=== PATIENT | female | born 1935 ===

== ENCOUNTER 2019-05-15 09:42 | Inpatient (IN) | payer MEDICARE ==
[2019-05-16 08:03] LABS: Basophils % (Auto) 0.6 % (0.0-1.8); Eosinophils # (Auto) 0.2 K/mm3 (0.0-0.4); Eosinophils % (Auto) 2.2 % (0.0-4.3); Hematocrit 31.2 % (30.3-42.9); Lymphocytes # (Auto) 1.8 K/mm3 (1.2-5.4); Lymphocytes % (Auto) 26.6 % (13.4-35.0); Mean Corpuscular HGB Conc 32 % (30-34); Mean Corpuscular Volume 94 fl (79-97); Monocytes # (Auto) 0.7 K/mm3 (0.0-0.8); Monocytes % (Auto) 10.8 % (0.0-7.3); Platelet Count 187 K/mm3 (140-440); Red Blood Count 3.33 M/mm3 (3.65-5.03); Red Cell Distribution Width 14.2 % (13.2-15.2)
[2019-05-16 08:19] LABS: Albumin 2.6 g/dL (3.9-5); Calcium 8.2 mg/dL (8.4-10.2); Chol/HDL Ratio 4.26 %
--- NOTE | 2019-05-16 08:19 | History and Physical Report ---
GP History & Physical - History of Present Illness Date of admission: 05/15/19 Date of Examination: 05/16/19 Reason for Admission: Danger to self, Danger to others, Unable to care for self Chief Complaint: Agitation History of Present Illness: The patient is an 83yo female with history of advanced dementia. Per records, patient's family reported that pt used to be in an assisted living facility then moved to a [facility]. The [facility] to [facility] due to aggressive behavior and threatening to kill residents. Patient is not able to engage in meaningful conversation this morning. Legal Status: DPOA for Mental Health Patient Problems: Current Active Problems Major neurocognitive disorder due to Alzheimer's disease, with behavioral disturbance (Acute) Reaction to Hospitalization: Accepting Substance History - Substance History Drug Use: none Hx Tobacco Use: No Alcohol Use: No Past psychiatric history - Past Medical History Past Medical History: diabetes - Social History Social history: other (Patient lives in a Long Term) Review of Systems ROS unobtainable: due to mental status Results - Results Labs/Vitals: Laboratory Last Values POC Glucose 239 (70-105) H 05/15/19 20:25 8.5 % (4-6) H 05/16/19 07:10 Last Vital Signs Temp 97.3 F L 05/15/19 22:00 Pulse 81 05/15/19 22:00 Resp 18 05/15/19 22:00 BP 125/59 05/15/19 22:00 Pulse Ox 97 05/15/19 22:00 Physical Examination - Constitutional Vitals: Vital Signs Temp Pulse Resp BP Pulse Ox 97.3 F L 81 18 125/59 97 05/15/19 22:00 05/15/19 22:00 05/15/19 22:00 05/15/19 22:00 05/15/19 22:00 Temperature -Last 24 Hours Temperature 97.3 F Temperature 97.3 F Temperature 97.7 F General appearance: Present: no acute distress - EENT Eyes: Present: PERRL, EOM intact ENT: hearing intact, clear oral mucosa - Neck Neck: Present: supple - Respiratory Respiratory effort: normal Mental Status Exam - Vital signs Last Vital Signs Temp 97.3 F L 05/15/19 22:00 Pulse 81 05/15/19 22:00 Resp 18 05/15/19 22:00 BP 125/59 05/15/19 22:00 Pulse Ox 97 05/15/19 22:00 - Exam Affect: flat Mood: congruent with affect Thought Process: Disorganized Perceptions: none Speech: paucity Motor activity: lethargic Level of consciousness: sedated Memory: Recent Impaired, Remote Impaired Interaction: cooperative Mini mental status exam(if necessary): 0-17 Assessment and Plan - Psychiatric problem (1) Major neurocognitive disorder due to Alzheimer's disease, with behavioral disturbance Current Visit: Yes Status: Acute plan to address problem: Patient will be admitted for inpatient psychiatric evaluation, medication adjustment and close monitoring The patient's behavior, mood, sleep and appetite will be closely monitored. Patient will be enrolled in individual and group therapeutic sessions and encouraged to attend. Patient will be provided with a safe and structured environment. Patient's physical health needs will be addressed by the Hospitalist. Social Assessment will be completed and the Caul Puller will work with p atient and family to ensure a suitable and safe disposition Medication adjustment will be made as clinically indicated The patient agreed on the treatment plan, understood the risk, benefit, alterna tive treatment, potential consequence of no treatment, and gave informed consent. Physician Certification - Certification Statement Physician Certification Statement: This is an acknowledgement statement that JAMES BOWDEN is a 83 year old F who requires inpatient psychiatric admission for treatment which could reasonably be expected to improve the patient's condition for behavioral disturbance Estimated period of time patient will need to remain in the hospital: 7 days Plan for post-hospital care: Out-patient care
[2019-05-16] MEDS ORDERED: D50W (25GM) Syringe IV PRN (20:49)
[2019-05-16] MEDS ORDERED: LANTUS SUB-Q SCH (22:00)
[2019-05-16] MEDS ORDERED: ATIVAN PO SCH (22:00)
[2019-05-16] MEDS: HumaLOG SUB-Q SCH (22:15)
--- NOTE | 2019-05-17 08:07 | Consultation ---
History of Present Illness - Reason for Consult Consult date: 05/16/19 Medical management Requesting physician: JARROD MICHELE - History of Present Illness The patient is an 83yo female with history of advanced dementia. Per records, patient's family reported that pt used to be in an assisted living facility then moved to a [facility]. The [facility] pt [facility] due to aggressive behavior and threatening to kill residents. Patient is not able to en sakina in meaningful conversation this morning. Past History Past Medical History: diabetes, other (Resp failure on O2) Past Surgical History: Other (Not available) Social history: smoking (in the past), full code, other (Patient lives in a Group Home) Family history: hypertension Medications and Allergies Allergies Allergy/AdvReac Type Severity Reaction Status Date / Time codeine Allergy Mild Unknown Verified 05/15/19 22:13 enoxaparin [From Lovenox] Allergy Mild Unknown Verified 05/15/19 22:13 Home Medications Medication Instructions Recorded Confirmed Last Taken Type LORazepam 1 mg PO Q6H PRN 05/15/19 05/15/19 05/14/19 22:00 History 1 mg LORazepam [Ativan] 1 mg PO QHS 05/15/19 05/15/19 05/14/19 22:00 History 1 mg Insulin Glargine [Lantus] 18 unit SUB-Q BID 05/16/19 05/16/19 Unknown History Active Meds: Active Medications Dextrose (D50w (25gm) Syringe) 50 ml IV PRN PRN PRN Reason: Hypoglycemia Insulin Glargine (Lantus) 10 units SUB-Q QHS [facility] Last Admin: 05/16/19 22:16 Dose: 10 units Documented by: Insulin Human Lispro (Humalog) 0 unit SUB-Q [facility]; Protocol Last Admin: 05/16/19 22:15 Dose: 4 unit Documented by: Lorazepam (Ativan) 1 mg PO QHS [facility] Last Admin: 05/16/19 21:17 Dose: 1 mg Documented by: Quetiapine Fumarate (Seroquel) 25 mg PO QHS [facility] Last Admin: 05/16/19 21:17 Dose: 25 mg Documented by: Review of Systems All systems: negative Exam - Constitutional Vitals: Temp Pulse Resp BP Pulse Ox 97.7 F 134 H 18 113/65 98 05/16/19 22:00 05/16/19 22:00 05/16/19 22:00 05/16/19 22:00 05/16/19 22:00 General appearance: Present: no acute distress, well-nourished - EENT Eyes: Present: PERRL ENT: hearing intact, clear oral mucosa - Neck Neck: Present: supple, normal ROM - Respiratory Respiratory effort: normal Respiratory: bilateral: CTA - Cardiovascular Heart rate: 78 Rhythm: regular Heart Sounds: Present: S1 & S2. Absent: rub, click - Extremities Extremities: no ischemia, pulses intact, pulses symmetrical, No edema Peripheral Pulses: within normal limits - Abdominal General gastrointestinal: Present: soft, non-tender, non-distended, normal bowel sounds Female genitourinary: Present: normal - Integumentary Integumentary: Present: clear, warm, dry - Musculoskeletal Musculoskeletal: gait normal, strength equal bilaterally - Psychiatric Psychiatric: appropriate mood/affect, agitated - Neurologic Neurologic: CNII-XII intact, moves all extremities - Allied Health Allied health notes reviewed: nursing, case management Results - Labs CBC & Chem 7: 05/16/19 07:10 05/16/19 07:10 Labs: Abnormal lab results 05/16/19 05/16/19 05/16/19 Range/Units 07:10 08:53 12:16 Carbon Dioxide 32 H (22-30) mmol/L BUN 21 H (7-17) mg/dL Glucose 131 H (65-100) mg/dL POC Glucose 138 H 162 H (70-105) Calcium 8.2 L (8.4-10.2) mg/dL Albumin 2.6 L (3.9-5) g/dL HDL Cholesterol 26 L (40-59) mg/dL 05/16/19 05/16/19 05/17/19 Range/Units 17:04 20:08 06:24 Carbon Dioxide (22-30) mmol/L BUN (7-17) mg/dL Glucose (65-100) mg/dL POC Glucose 243 H 264 H 250 H (70-105) Calcium (8.4-10.2) mg/dL Albumin (3.9-5) g/dL HDL Cholesterol (40-59) mg/dL BMP 05/16/19 07:10 Sodium 140 Potassium 4.4 Chloride 100.6 Carbon Dioxide 32 H BUN 21 H Creatinine 1.2 Glucose 131 H Calcium 8.2 L Liver Function 05/16/19 Range/Units 07:10 Total Bilirubin 0.30 (0.1-1.2) mg/dL AST 17 (5-40) units/L ALT 10 (7-56) units/L Alkaline Phosphatase 116 (35-129) units/L Albumin 2.6 L (3.9-5) g/dL Assessment and Plan - Patient Problems (1) IDDM (insulin dependent diabetes mellitus) Current Visit: Yes Status: Chronic Plan to address problem: A1c 8.5 Adjusted her insulin upward Accucheks bid and coverage (2) Respiratory failure with hypoxia Current Visit: Yes Status: Chronic Qualifiers: Chronicity: chronic Qualified Code(s): J96.11 - Chronic respiratory failure with hypoxia Plan to address problem: Cont O2 Patient has portable O2 equipment (3) Malnutrition of moderate degree Current Visit: Yes Status: Chronic Plan to address problem: Albumin 2.6 dietitian consult (4) Hypocalcemia Current Visit: Yes Status: Chronic Plan to address problem: Caltrate added (5) Anemia Current Visit: Yes Status: Chronic Qualifiers: Anemia type: unspecified type Qualified Code(s): D64.9 - Anemia, unspecified Plan to address problem: Mild No w//u Nutritional (6) DVT prophylaxis Current Visit: Yes Status: Acute Plan to address problem: On Lovenox and GI prophylaxis
[2019-05-17] MEDS: HumaLOG SUB-Q SCH ×4 (08:35→22:00)
[2019-05-17] MEDS ORDERED: ENOXAPARIN SUB-Q SCH (12:00)
[2019-05-17] MEDS: CALTRATE PLUS PO SCH ×2 (12:40→22:00)
[2019-05-17] MEDS: PEPCID PO SCH (12:40)
[2019-05-17] MEDS: LANTUS SUB-Q SCH ×3 (15:03→22:00)
--- NOTE | 2019-05-17 17:18 | Progress Note ---
Subjective Date of service: 05/17/19 Principal diagnosis: Dementia with behavioral disturbance Subjective Comment: The patient has been sleeping all day. She is sleeping in the day room and unable to engage in interview. She is arousable but falls back to sleep quickly. Objective - Criteria for Continued Treatment Criteria for Continued Treatment: Improving Level of Functioning, Stablizing Level of Functioning, Improving Emotional/Socia - Mental Status Mental Status: Lethargic - Objective Observation Participation Level: None Reason(s) For Not Participating: Unable Assessment and Plan - Patient Problems (1) Major neurocognitive disorder due to Alzheimer's disease, with behavioral disturbance Current Visit: Yes Status: Acute Plan to address problem: Patient will be admitted for inpatient psychiatric evaluation, medication adjustment and close monitoring The patient's behavior, mood, sleep and appetite will be closely monitored. Patient will be enrolled in individual and group therapeutic sessions and encouraged to attend. Patient will be provided with a safe and structured environment. Patient's physical health needs will be addressed by the Hospitalist. Social Assessment will be completed and the Dietitian Teaching will work with patient and family to ensure a suitable and safe disposition Medication adjustment will be made as clinically indicated Will discontinue Lorazepam and Seroquel scheduled for tonight. Medications & Allergies - Medications Allergies/Adverse Reactions: Allergies codeine Allergy (Mild, Verified 05/15/19 22:13) Unknown enoxaparin [From Lovenox] Allergy (Mild, Verified 05/15/19 22:13) Unknown Home Medications: Home Medications Medication Instructions Recorded Confirmed Last Taken Type LORazepam 1 mg PO Q6H PRN 05/15/19 05/15/19 05/14/19 22:00 History 1 mg LORazepam [Ativan] 1 mg PO QHS 05/15/19 05/15/19 05/14/19 22:00 History 1 mg Insulin Glargine [Lantus] 18 unit SUB-Q BID 05/16/19 05/16/19 Unknown History Active Medications: Generic Name Dose Route Start Last Admin Trade Name Freq PRN Reason Stop Dose Admin Dextrose 50 ml 05/16/19 20:49 D50w (25gm) Syringe IV PRN PRN Hypoglycemia Famotidine 20 mg 05/17/19 10:00 05/17/19 12:40 Pepcid PO 20 mg QDAY SINDY Administration Insulin Glargine 18 units 05/17/19 11:30 05/17/19 15:03 Lantus SUB-Q Not Given BIDDIAB ISNDY Insulin Human Lispro 0 unit 05/16/19 22:00 05/17/19 12:39 Humalog SUB-Q 2 unit ACHS SINDY Administration Protocol Lorazepam 1 mg 05/17/19 22:00 Ativan PO QHS SINDY Multivitamins/Minerals 1 each 05/17/19 10:00 05/17/19 12:40 Caltrate Plus PO 1 each BID SINDY Administration Quetiapine Fumarate 25 mg 05/16/19 22:00 05/16/19 21:17 Seroquel PO 25 mg QHS SINDY Administration
[2019-05-17 18:48] LABS: Basophils % (Auto) 0.3 % (0.0-1.8); Eosinophils # (Auto) 0.1 K/mm3 (0.0-0.4); Eosinophils % (Auto) 0.7 % (0.0-4.3); Hematocrit 32.8 % (30.3-42.9); Hemoglobin 10.6 gm/dl (10.1-14.3); Lymphocytes % (Auto) 21.8 % (13.4-35.0); Mean Corpuscular HGB Conc 32 % (30-34); Mean Corpuscular Volume 93 fl (79-97); Monocytes # (Auto) 0.8 K/mm3 (0.0-0.8); Monocytes % (Auto) 8.9 % (0.0-7.3); Platelet Count 198 K/mm3 (140-440); Red Blood Count 3.54 M/mm3 (3.65-5.03); Red Cell Distribution Width 14.2 % (13.2-15.2)
[2019-05-17 18:58] LABS: Albumin 2.7 g/dL (3.9-5); Calcium 8.2 mg/dL (8.4-10.2)
--- NOTE | 2019-05-17 20:48 | Event Note ---
Date: 05/17/19 Was called to evaluate the patient for sleeping during the daytime Patient was evaluated ABGs near normal Excessive sedation secondary to lorazepam Will hold the lorazepam
[2019-05-17] MEDS ORDERED: ATIVAN PO SCH (22:00)
[2019-05-18] MEDS: HumaLOG SUB-Q SCH ×4 (09:55→22:37)
[2019-05-18] MEDS: PEPCID PO SCH (09:57)
[2019-05-18] MEDS: CALTRATE PLUS PO SCH ×2 (09:57→21:48)
--- NOTE | 2019-05-18 15:02 | Progress Note ---
Subjective Date of service: 05/18/19 Principal diagnosis: Dementia with behavioral disturbance Subjective Comment: The patient is excessively sedated. All psychotropic medications were discontinued yesterday. She is being followed by the Hospitalist team Unable to complete MSE due to patient's factor Objective - Criteria for Continued Treatment Criteria for Continued Treatment: Improving Level of Functioning, Stablizing Level of Functioning, Improving Emotional/Socia - Objective Observation Participation Level: None Reason(s) For Not Participating: Unable Assessment and Plan - Patient Problems (1) Major neurocognitive disorder due to Alzheimer's disease, with behavioral disturbance Current Visit: Yes Status: Acute Plan to address problem: Patient will be admitted for inpatient psychiatric evaluation, medication adjust ment and close monitoring The patient's behavior, mood, sleep and appetite will be closely monitored. Patient will be enrolled in individual and group therapeutic sessions and encouraged to attend. Patient will be provided with a safe and structured environment. Patient's physical health needs will be addressed by the Hospitalist. Social Assessment will be completed and the Leak Detection Engineer will work with patient and family to ensure a suitable and safe disposition Medication adjustment will be made as clinically indicated Medications & Allergies - Medications Allergies/Adverse Reactions: Allergies codeine Allergy (Mild, Verified 05/15/19 22:13) Unknown enoxaparin [From Lovenox] Allergy (Mild, Verified 05/15/19 22:13) Unknown Home Medications: Home Medications Medication Instructions Recorded Confirmed Last Taken Type LORazepam 1 mg PO Q6H PRN 05/15/19 05/15/19 05/14/19 22:00 History 1 mg LORazepam [Ativan] 1 mg PO QHS 05/15/19 05/15/19 05/14/19 22:00 History 1 mg Insulin Glargine [Lantus] 18 unit SUB-Q BID 05/16/19 05/16/19 Unknown History Active Medications: Generic Name Dose Route Start Last Admin Trade Name Freq PRN Reason Stop Dose Admin Dextrose 50 ml 05/16/19 20:49 D50w (25gm) Syringe IV PRN PRN Hypoglycemia Famotidine 20 mg 05/17/19 10:00 05/18/19 09:57 Pepcid PO 20 mg QDAY SINDY Administration Insulin Glargine 18 units 05/17/19 22:00 05/17/19 22:00 Lantus SUB-Q 18 units QHS SINDY Administration Insulin Human Lispro 0 unit 05/16/19 22:00 05/18/19 09:55 Humalog SUB-Q Not Given ACHS SINDY Protocol Multivitamins/Minerals 1 each 05/17/19 10:00 05/18/19 09:57 Caltrate Plus PO 1 each BID SINDY Administration
[2019-05-18] MEDS: LANTUS SUB-Q SCH (22:35)
[2019-05-19] MEDS: HumaLOG SUB-Q SCH ×3 (08:23→17:18)
[2019-05-19] MEDS: CALTRATE PLUS PO SCH ×2 (10:53→22:48)
[2019-05-19] MEDS: PEPCID PO SCH (10:54)
--- NOTE | 2019-05-19 11:24 | Progress Note ---
Subjective Date of service: 05/19/19 Principal diagnosis: Dementia with behavioral disturbance Subjective Comment: The patient is excessively sedated. All psychotropic medications were discontinued yesterday. She is being followed by the Hospitalist team Unable to complete MSE due to patient's factor Objective - Criteria for Continued Treatment Criteria for Continued Treatment: Improving Level of Functioning, Stablizing Level of Functioning, Improving Emotional/Socia - Objective Observation Participation Level: None Reason(s) For Not Participating: Unable Assessment and Plan - Patient Problems (1) Major neurocognitive disorder due to Alzheimer's disease, with behavioral disturbance Current Visit: Yes Status: Acute Plan to address problem: Patient will be admitted for inpatient psychiatric evaluation, medication adjust ment and close monitoring The patient's behavior, mood, sleep and appetite will be closely monitored. Patient will be enrolled in individual and group therapeutic sessions and encouraged to attend. Patient will be provided with a safe and structured environment. Patient's physical health needs will be addressed by the Hospitalist. Social Assessment will be completed and the Space Officer will work with patient and family to ensure a suitable and safe disposition Medication adjustment will be made as clinically indicated
[2019-05-19] MEDS: LANTUS SUB-Q SCH (23:42)
[2019-05-20] MEDS: HumaLOG SUB-Q SCH ×5 (00:08→21:29)
[2019-05-20] MEDS: CALTRATE PLUS PO SCH ×2 (09:58→21:29)
[2019-05-20] MEDS: PEPCID PO SCH (09:58)
[2019-05-20] MEDS: LANTUS SUB-Q SCH (21:30)
[2019-05-21] MEDS: HumaLOG SUB-Q SCH ×4 (08:10→21:21)
[2019-05-21] MEDS: CALTRATE PLUS PO SCH ×2 (09:34→21:20)
[2019-05-21] MEDS: PEPCID PO SCH (09:35)
--- NOTE | 2019-05-21 17:29 | Progress Note ---
Subjective Date of service: 05/20/19 Principal diagnosis: Dementia with behavioral disturbance Subjective Comment: The patient is alert but confused this morning. No behavioral concerns. Objective - Criteria for Continued Treatment Criteria for Continued Treatment: Improving Level of Functioning, Stablizing Level of Functioning, Improving Emotional/Socia - Objective Observation Participation Level: Minimal Assessment and Plan - Patient Problems (1) Major neurocognitive disorder due to Alzheimer's disease, with behavioral disturbance Current Visit: Yes Status: Acute Plan to address problem: Patient will be admitted for inpatient psychiatric evaluation, medication adjustment and close monitoring The patient's behavior, mood, sleep and appetite will be closely monitored. Patient will be enrolled in individual and group therapeutic sessions and e ncouraged to attend. Patient will be provided with a safe and structured environment. Patient's physical health needs will be addressed by the Hospitalist. Social Assessment will be completed and the Extrusion Engineer will work with patient and family to ensure a suitable and safe disposition Medication adjustment will be made as clinically indicated Medications & Allergies - Medications Allergies/Adverse Reactions: Allergies codeine Allergy (Mild, Verified 05/15/19 22:13) Unknown enoxaparin [From Lovenox] Allergy (Mild, Verified 05/15/19 22:13) Unknown Home Medications: Home Medications Medication Instructions Recorded Confirmed Last Taken Type LORazepam 1 mg PO Q6H PRN 05/15/19 05/15/19 05/14/19 22:00 History 1 mg LORazepam [Ativan] 1 mg PO QHS 05/15/19 05/15/19 05/14/19 22:00 History 1 mg Insulin Glargine [Lantus] 18 unit SUB-Q BID 05/16/19 05/16/19 Unknown History Active Medications: Generic Name Dose Route Start Last Admin Trade Name Freq PRN Reason Stop Dose Admin Dextrose 50 ml 05/16/19 20:49 D50w (25gm) Syringe IV PRN PRN Hypoglycemia Famotidine 20 mg 05/17/19 10:00 05/21/19 09:35 Pepcid PO 20 mg QDAY SINDY Administration Insulin Glargine 18 units 05/17/19 22:00 05/20/19 21:30 Lantus SUB-Q 18 units QHS SINDY Administration Insulin Human Lispro 0 unit 05/16/19 22:00 05/21/19 17:08 Humalog SUB-Q 3 unit ACHS SINDY Administration Protocol Multivitamins/Minerals 1 each 05/17/19 10:00 05/21/19 09:34 Caltrate Plus PO 1 each BID SINDY Administration Mental Status Exam - Vital signs Last Vital Signs Temp 98.5 F 05/21/19 10:00 Pulse 79 05/21/19 10:00 Resp 20 05/21/19 10:00 BP 136/55 05/21/19 10:00 Pulse Ox 95 05/21/19 10:04 - Exam Orientation: place Affect: normal Mood: calm Thought Process: Disorganized, Disoriented Perceptions: none Speech: paucity Motor activity: lethargic Level of consciousness: confused Memory: Recent Impaired, Remote Impaired Interaction: cooperative
--- NOTE | 2019-05-21 17:30 | Progress Note ---
Subjective Date of service: 05/21/19 Principal diagnosis: Dementia with behavioral disturbance Subjective Comment: The patient is alert but confused this morning. No behavioral concerns. Orientation: place Affect: normal Mood: calm Thought Process: Disorganized, Disoriented Perceptions: none Speech: paucity Motor activity: lethargic Level of consciousness: confused Memory: Recent Impaired, Remote Impaired Interaction: cooperative Objective - Criteria for Continued Treatment Criteria for Continued Treatment: Improving Level of Functioning, Stablizing Level of Functioning, Improving Emotional/Socia - Objective Observation Participation Level: Minimal Assessment and Plan - Patient Problems (1) Major neurocognitive disorder due to Alzheimer's disease, with behavioral disturbance Current Visit: Yes Status: Acute Plan to address problem: Patient will be admitted for inpatient psychiatric evaluation, medication adjustment and close monitoring The patient's behavior, mood, sleep and appetite will be closely monitored. Patient will be enrolled in individual and group therapeutic sessions and encouraged to attend. Patient will be provided with a safe and structured environment. Patient's physical health needs will be addressed by the Hospitalist. Social Assessment will be completed and the Hospital Cna will work with patient and family to ensure a suitable and safe disposition Medication adjustment will be made as clinically indicated Medications & Allergies - Medications Allergies/Adverse Reactions: Allergies codeine Allergy (Mild, Verified 05/15/19 22:13) Unknown enoxaparin [From Lovenox] Allergy (Mild, Verified 05/15/19 22:13) Unknown Home Medications: Home Medications Medication Instructions Recorded Confirmed Last Taken Type LORazepam 1 mg PO Q6H PRN 05/15/19 05/15/19 05/14/19 22:00 History 1 mg LORazepam [Ativan] 1 mg PO QHS 05/15/19 05/15/19 05/14/19 22:00 History 1 mg Insulin Glargine [Lantus] 18 unit SUB-Q BID 05/16/19 05/16/19 Unknown History Active Medications: Generic Name Dose Route Start Last Admin Trade Name Freq PRN Reason Stop Dose Admin Dextrose 50 ml 05/16/19 20:49 D50w (25gm) Syringe IV PRN PRN Hypoglycemia Famotidine 20 mg 05/17/19 10:00 05/21/19 09:35 Pepcid PO 20 mg QDAY SINDY Administration Insulin Glargine 18 units 05/17/19 22:00 05/20/19 21:30 Lantus SUB-Q 18 units QHS SINDY Administration Insulin Human Lispro 0 unit 05/16/19 22:00 05/21/19 17:08 Humalog SUB-Q 3 unit ACHS SINDY Administration Protocol Multivitamins/Minerals 1 each 05/17/19 10:00 05/21/19 09:34 Caltrate Plus PO 1 each BID SINDY Administration
[2019-05-21] MEDS: LANTUS SUB-Q SCH (21:16)
[2019-05-21] MEDS: PROVENTIL IH PRN (21:30)
[2019-05-22] MEDS: HumaLOG SUB-Q SCH ×4 (07:30→21:38)
--- NOTE | 2019-05-22 09:17 | Progress Note ---
Subjective Date of service: 05/22/19 Principal diagnosis: Dementia with behavioral disturbance Subjective Comment: The patient is alert but confused this morning. No behavioral concerns. Orientation: place Affect: normal Mood: calm Thought Process: Disorganized, Disoriented Perceptions: none Speech: paucity Motor activity: lethargic Level of consciousness: confused Memory: Recent Impaired, Remote Impaired Interaction: cooperative Objective - Criteria for Continued Treatment Criteria for Continued Treatment: Improving Level of Functioning, Stablizing Level of Functioning, Improving Emotional/Socia - Objective Observation Participation Level: Minimal Reason(s) For Not Participating: Unable Assessment and Plan - Patient Problems (1) Major neurocognitive disorder due to Alzheimer's disease, with behavioral disturbance Current Visit: Yes Status: Acute Plan to address problem: Patient will be admitted for inpatient psychiatric evaluation, medication adjustment and close monitoring The patient's behavior, mood, sleep and appetite will be closely monitored. Patient will be enrolled in individual and group therapeutic sessions and encouraged to attend. Patient will be provided with a safe and structured environment. Patient's physical health needs will be addressed by the Hospitalist. Social Assessment will be completed and the Histopathology Technician will work with patien t and family to ensure a suitable and safe disposition Medication adjustment will be made as clinically indicated
[2019-05-22] MEDS: PEPCID PO SCH (09:47)
[2019-05-22] MEDS: CALTRATE PLUS PO SCH ×2 (09:47→21:38)
[2019-05-22] MEDS: LANTUS SUB-Q SCH (21:39)
[2019-05-23] MEDS: HumaLOG SUB-Q SCH ×4 (08:35→22:00)
[2019-05-23] MEDS: PEPCID PO SCH (09:39)
[2019-05-23] MEDS: CALTRATE PLUS PO SCH ×2 (09:39→22:52)
--- NOTE | 2019-05-24 07:21 | Progress Note ---
Subjective Date of service: 05/23/19 Principal diagnosis: Dementia with behavioral disturbance Subjective Comment: The patient is alert but confused this morning. No behavioral concerns. Orientation: place Affect: normal Mood: calm Thought Process: Disorganized, Disoriented Perceptions: none Speech: paucity Motor activity: lethargic Level of consciousness: confused Memory: Recent Impaired, Remote Impaired Interaction: cooperative Objective - Criteria for Continued Treatment Criteria for Continued Treatment: Stablizing Level of Functioning - Objective Observation Participation Level: Minimal Reason(s) For Not Participating: Unable Assessment and Plan - Patient Problems (1) Major neurocognitive disorder due to Alzheimer's disease, with behavioral disturbance Current Visit: Yes Status: Acute Plan to address problem: Patient will be admitted for inpatient psychiatric evaluation, medication adjustment and close monitoring The patient's behavior, mood, sleep and appetite will be closely monitored. Patient will be enrolled in individual and group therapeutic sessions and encouraged to attend. Patient will be provided with a safe and structured environment. Patient's physical health needs will be addressed by the Hospitalist. Social Assessment will be completed and the Gate Keeper will work with patient and family to ensure a suitable and safe disposition Medication adjustment will be made as clinically indicated Medications & Allergies - Medications Allergies/Adverse Reactions: Allergies codeine Allergy (Mild, Verified 05/15/19 22:13) Unknown enoxaparin [From Lovenox] Allergy (Mild, Verified 05/15/19 22:13) Unknown Home Medications: Home Medications Medication Instructions Recorded Confirmed Last Taken Type LORazepam 1 mg PO Q6H PRN 05/15/19 05/15/19 05/14/19 22:00 History 1 mg LORazepam [Ativan] 1 mg PO QHS 05/15/19 05/15/19 05/14/19 22:00 History 1 mg Insulin Glargine [Lantus] 18 unit SUB-Q BID 05/16/19 05/16/19 Unknown History Active Medications: Generic Name Dose Route Start Last Admin Trade Name Freq PRN Reason Stop Dose Admin Albuterol 2.5 mg 05/21/19 20:54 05/21/19 21:30 Proventil IH 2.5 mg Q4HRT PRN Administration Shortness Of Breath Dextrose 50 ml 05/16/19 20:49 D50w (25gm) Syringe IV PRN PRN Hypoglycemia Famotidine 20 mg 05/17/19 10:00 05/23/19 09:39 Pepcid PO 20 mg QDAY SINDY Administration Insulin Glargine 18 units 05/17/19 22:00 05/24/19 00:00 Lantus SUB-Q 18 units QHS SINDY Administration Insulin Human Lispro 0 unit 05/16/19 22:00 05/23/19 22:00 Humalog SUB-Q 4 unit ACHS SINDY Administration Protocol Multivitamins/Minerals 1 each 05/17/19 10:00 05/23/19 22:52 Caltrate Plus PO 1 each BID SINDY Administration
[2019-05-24] MEDS: PEPCID PO SCH (09:15)
[2019-05-24] MEDS: CALTRATE PLUS PO SCH ×2 (09:16→21:04)
[2019-05-24] MEDS: HumaLOG SUB-Q SCH ×4 (09:16→21:05)
--- NOTE | 2019-05-24 11:34 | Progress Note ---
Subjective Date of service: 05/24/19 Principal diagnosis: Dementia with behavioral disturbance Subjective Comment: The patient is alert but confused this morning. No behavioral concerns. Awaiting placement. Orientation: place Affect: normal Mood: calm Thought Process: Disorganized, Disoriented Perceptions: none Speech: paucity Motor activity: lethargic Level of consciousness: confused Memory: Recent Impaired, Remote Impaired Interaction: cooperative Objective - Criteria for Continued Treatment Criteria for Continued Treatment: Improving Level of Functioning, Stablizing Level of Functioning, Improving Emotional/Socia - Objective Observation Participation Level: Moderate Assessment and Plan - Patient Problems (1) Major neurocognitive disorder due to Alzheimer's disease, with behavioral disturbance Current Visit: Yes Status: Acute Plan to address problem: Patient will be admitted for inpatient psychiatric evaluation, medication adjustment and close monitoring The patient's behavior, mood, sleep and appetite will be closely monitored. Patient will be enrolled in individual and group therapeutic sessions and encouraged to attend. Patient will be provided with a safe and structured environment. Patient's physical health needs will be addressed by the Hospitalist. Social Assessment will be completed and the Pedigree Researcher will work with patient and family to ensure a suitable and safe disposition Medication adjustment will be made as clinically indicated Medications & Allergies - Medications Allergies/Adverse Reactions: Allergies codeine Allergy (Mild, Verified 05/15/19 22:13) Unknown enoxaparin [From Lovenox] Allergy (Mild, Verified 05/15/19 22:13) Unknown Home Medications: Home Medications Medication Instructions Recorded Confirmed Last Taken Type LORazepam 1 mg PO Q6H PRN 05/15/19 05/15/19 05/14/19 22:00 History 1 mg LORazepam [Ativan] 1 mg PO QHS 05/15/19 05/15/19 05/14/19 22:00 History 1 mg Insulin Glargine [Lantus] 18 unit SUB-Q BID 05/16/19 05/16/19 Unknown History Active Medications: Generic Name Dose Route Start Last Admin Trade Name Freq PRN Reason Stop Dose Admin Albuterol 2.5 mg 05/21/19 20:54 05/21/19 21:30 Proventil IH 2.5 mg Q4HRT PRN Administration Shortness Of Breath Dextrose 50 ml 05/16/19 20:49 D50w (25gm) Syringe IV PRN PRN Hypoglycemia Famotidine 20 mg 05/17/19 10:00 05/25/19 09:13 Pepcid PO 20 mg QDAY SINDY Administration Insulin Glargine 18 units 05/17/19 22:00 05/24/19 21:21 Lantus SUB-Q 18 units QHS SINDY Administration Insulin Human Lispro 0 unit 05/16/19 22:00 05/25/19 08:14 Humalog SUB-Q Not Given [facility] Protocol Multivitamins/Minerals 1 each 05/17/19 10:00 05/25/19 09:13 Caltrate Plus PO 1 each BID SINDY Administration
[2019-05-24] MEDS: LANTUS SUB-Q SCH ×2 (21:21)
[2019-05-25] MEDS: HumaLOG SUB-Q SCH ×4 (08:14→21:43)
[2019-05-25] MEDS: PEPCID PO SCH (09:13)
[2019-05-25] MEDS: CALTRATE PLUS PO SCH ×2 (09:13→21:16)
--- NOTE | 2019-05-25 10:58 | Progress Note ---
Subjective Date of service: 05/25/19 Principal diagnosis: Dementia with behavioral disturbance Subjective Comment: The patient is alert but confused this morning. No behavioral concerns. Awaiting placement. Orientation: place Affect: normal Mood: calm Thought Process: Disorganized, Disoriented Perceptions: none Speech: paucity Motor activity: lethargic Level of consciousness: confused Memory: Recent Impaired, Remote Impaired Interaction: cooperative Objective - Criteria for Continued Treatment Criteria for Continued Treatment: Improving Level of Functioning, Stablizing Level of Functioning, Improving Emotional/Socia - Objective Observation Participation Level: Moderate Assessment and Plan - Patient Problems (1) Major neurocognitive disorder due to Alzheimer's disease, with behavioral disturbance Current Visit: Yes Status: Acute Plan to address problem: Patient will be admitted for inpatient psychiatric evaluation, medication adjustment and close monitoring The patient's behavior, mood, sleep and appetite will be closely monitored. Patient will be enrolled in individual and group therapeutic sessions and encouraged to attend. Patient will be provided with a safe and structured environment. Patient's physical health needs will be addressed by the Hospitalist. Social Assessment will be completed and the Electrical Manufacturing Engineer will work with patient and family to ensure a suitable and safe disposition Medication adjustment will be made as clinically indicated Medications & Allergies - Medications Allergies/Adverse Reactions: Allergies codeine Allergy (Mild, Verified 05/15/19 22:13) Unknown enoxaparin [From Lovenox] Allergy (Mild, Verified 05/15/19 22:13) Unknown Home Medications: Home Medications Medication Instructions Recorded Confirmed Last Taken Type LORazepam 1 mg PO Q6H PRN 05/15/19 05/15/19 05/14/19 22:00 History 1 mg LORazepam [Ativan] 1 mg PO QHS 05/15/19 05/15/19 05/14/19 22:00 History 1 mg Insulin Glargine [Lantus] 18 unit SUB-Q BID 05/16/19 05/16/19 Unknown History Active Medications: Generic Name Dose Route Start Last Admin Trade Name Freq PRN Reason Stop Dose Admin Albuterol 2.5 mg 05/21/19 20:54 05/21/19 21:30 Proventil IH 2.5 mg Q4HRT PRN Administration Shortness Of Breath Dextrose 50 ml 05/16/19 20:49 D50w (25gm) Syringe IV PRN PRN Hypoglycemia Famotidine 20 mg 05/17/19 10:00 05/25/19 09:13 Pepcid PO 20 mg QDAY SINDY Administration Insulin Glargine 18 units 05/17/19 22:00 05/24/19 21:21 Lantus SUB-Q 18 units QHS SINDY Administration Insulin Human Lispro 0 unit 05/16/19 22:00 05/25/19 08:14 Humalog SUB-Q Not Given [facility] Protocol Multivitamins/Minerals 1 each 05/17/19 10:00 05/25/19 09:13 Caltrate Plus PO 1 each BID SINDY Administration
[2019-05-25] MEDS: LANTUS SUB-Q SCH (21:36)
[2019-05-26] MEDS: HumaLOG SUB-Q SCH ×4 (08:02→22:00)
[2019-05-26] MEDS: PEPCID PO SCH (10:21)
[2019-05-26] MEDS: CALTRATE PLUS PO SCH ×2 (10:21→21:52)
[2019-05-26] MEDS: LANTUS SUB-Q SCH (21:53)
[2019-05-27] MEDS: HumaLOG SUB-Q SCH ×4 (09:00→21:34)
[2019-05-27] MEDS: CALTRATE PLUS PO SCH ×2 (10:47→21:35)
[2019-05-27] MEDS: PEPCID PO SCH (10:47)
--- NOTE | 2019-05-27 13:13 | XRay Report ---
CHEST 1 VIEW INDICATION: non productive cough. COMPARISON: None FINDINGS: Support devices: None. Heart: Previous CABG changes. Mild cardiomegaly. Lungs/Pleura: Mild pulmonary venous congestion and small right pleural effusion. Mild compressive ate lectasis at the right lung base. No obvious pneumonia or pneumothorax. Additional findings: None. IMPRESSION: Mild CHF. Signer Name: Pepe Ramirez Jr, MD Signed: 05/27/2019 1:09 PM Workstation Name: [id number]
[2019-05-27 14:19] LABS: Albumin 2.7 g/dL (3.9-5); Calcium 8.2 mg/dL (8.4-10.2)
[2019-05-27] MEDS: LANTUS SUB-Q SCH (21:33)
[2019-05-28] MEDS: HumaLOG SUB-Q SCH ×5 (08:32→21:31)
[2019-05-28] MEDS: CALTRATE PLUS PO SCH ×2 (09:04→21:15)
[2019-05-28] MEDS: PEPCID PO SCH (09:04)
[2019-05-28] MEDS: LANTUS SUB-Q SCH (21:28)
[2019-05-29] MEDS: HumaLOG SUB-Q SCH ×4 (08:06→21:58)
[2019-05-29] MEDS: PEPCID PO SCH (09:41)
[2019-05-29] MEDS: CALTRATE PLUS PO SCH ×2 (09:41→21:09)
--- NOTE | 2019-05-29 17:15 | Progress Note ---
Subjective Date of service: 05/27/19 Principal diagnosis: Dementia with behavioral disturbance Subjective Comment: The patient is alert but confused. No behavioral concerns. Awaiting placement. Orientation: place Affect: normal Mood: calm Thought Process: Disorganized, Disoriented Perceptions: none Speech: paucity Motor activity: lethargic Level of consciousness: confused Memory: Recent Impaired, Remote Impaired Interaction: cooperative Objective - Criteria for Continued Treatment Criteria for Continued Treatment: Improving Level of Functioning, Stablizing Level of Functioning, Improving Emotional/Socia - Objective Observation Participation Level: Minimal Assessment and Plan - Patient Problems (1) Major neurocognitive disorder due to Alzheimer's disease, with behavioral disturbance Current Visit: Yes Status: Acute Plan to address problem: Patient will be admitted for inpatient psychiatric evaluation, medication adjustment and close monitoring The patient's behavior, mood, sleep and appetite will be closely monitored. Patient will be enrolled in individual and group therapeutic sessions and encouraged to attend. Patient will be provided with a safe and structured environment. Patient's physical health needs will be addressed by the Hospitalist. Social Assessment will be completed and the Control Officer Manager will work with patient and family to ensure a suitable and safe disposition Medication adjustment will be made as clinically indicated
--- NOTE | 2019-05-29 17:17 | Progress Note ---
Subjective Date of service: 05/29/19 Principal diagnosis: Dementia with behavioral disturbance Subjective Comment: The patient is alert but confused. No behavioral concerns. Awaiting placement. Orientation: place Affect: normal Mood: calm Thought Process: Disorganized, Disoriented Perceptions: none Speech: paucity Motor activity: lethargic Level of consciousness: confused Memory: Recent Impaired, Remote Impaired Interaction: cooperative Objective - Criteria for Continued Treatment Criteria for Continued Treatment: Improving Level of Functioning, Stablizing Level of Functioning, Improving Emotional/Socia - Objective Observation Participation Level: Minimal Assessment and Plan - Patient Problems (1) Major neurocognitive disorder due to Alzheimer's disease, with behavioral disturbance Current Visit: Yes Status: Acute Plan to address problem: Patient will be admitted for inpatient psychiatric evaluation, medication adjustment and close monitoring The patient's behavior, mood, sleep and appetite will be closely monitored. Patient will be enrolled in individual and group therapeutic sessions and encouraged to attend. Patient will be provided with a safe and structured environment. Patient's physical health needs will be addressed by the Hospitalist. Social Assessment will be completed and the Electrocardiograph Technician will work with patient and family to ensure a suitable and safe disposition Medication adjustment will be made as clinically indicated
[2019-05-29] MEDS: LANTUS SUB-Q SCH (21:36)
--- NOTE | 2019-05-30 10:07 | Progress Note ---
Subjective Date of service: 05/30/19 Principal diagnosis: Dementia with behavioral disturbance Subjective Comment: The patient is alert but confused. No behavioral concerns. Awaiting placement. Nursing Report: 06:13: Pt was compliant with her routine meds. Had a good night slept for 8 hrs. No s/s of respiratory distress. Remains on O2 @ 3L via n/c. 19:14 Pt is observed in the activity room in her yoli chair wheels locked and in place. She is a/o x 1 mood and affect is pleasant and she responds to staff on approach. No complains of pain and continues on her O2 @ 3L no s/s of distress noted. Appears neat and appropriately dressed. MSE Orientation: place Affect: normal Mood: calm Thought Process: Disorganized, Disoriented Perceptions: none Speech: paucity Motor activity: lethargic Level of consciousness: confused Memory: Recent Impaired, Remote Impaired Interaction: cooperative Objective - Criteria for Continued Treatment Criteria for Continued Treatment: Improving Level of Functioning, Stablizing Level of Functioning, Improving Emotional/Socia - Objective Observation Participation Level: Minimal Reason(s) For Not Participating: Unable Assessment and Plan - Patient Problems (1) Major neurocognitive disorder due to Alzheimer's disease, with behavioral disturbance Current Visit: Yes Status: Acute Plan to address problem: Patient will be admitted for inpatient psychiatric evaluation, medication adjustment and close monitoring The patient's behavior, mood, sleep and appetite will be closely monitored. Patient will be enrolled in individual and group therapeutic sessions and encouraged to attend. Patient will be provided with a safe and structured environment. Patient's physical health needs will be addressed by the Hospitalist. Social Assessment will be completed and the Template Reproduction Technician will work with patient and family to ensure a suitable and safe disposition Medication adjustment will be made as clinically indicated Medications & Allergies - Medications Allergies/Adverse Reactions: Allergies codeine Allergy (Mild, Verified 05/15/19 22:13) Unknown enoxaparin [From Lovenox] Allergy (Mild, Verified 05/15/19 22:13) Unknown Home Medications: Home Medications Medication Instructions Recorded Confirmed Last Taken Type LORazepam 1 mg PO Q6H PRN 05/15/19 05/15/19 05/14/19 22:00 History 1 mg LORazepam [Ativan] 1 mg PO QHS 05/15/19 05/15/19 05/14/19 22:00 History 1 mg Insulin Glargine [Lantus] 18 unit SUB-Q BID 05/16/19 05/16/19 Unknown History Active Medications: Generic Name Dose Route Start Last Admin Trade Name Alison PRN Reason Stop Dose Admin Albuterol 2.5 mg 05/21/19 20:54 05/21/19 21:30 Proventil IH 2.5 mg Q4HRT PRN Administration Shortness Of Breath Dextrose 50 ml 05/16/19 20:49 D50w (25gm) Syringe IV PRN PRN Hypoglycemia Famotidine 20 mg 05/17/19 10:00 05/29/19 09:41 Pepcid PO 20 mg QDAY SINDY Administration Insulin Glargine 18 units 05/17/19 22:00 05/29/19 21:36 Lantus SUB-Q 18 units QHS SINDY Administration Insulin Human Lispro 0 unit 05/16/19 22:00 05/29/19 21:58 Humalog SUB-Q 2 unit ACHS SINDY Administration Protocol Multivitamins/Minerals 1 each 05/17/19 10:00 05/29/19 21:09 Caltrate Plus PO 1 each BID SINDY Administration
[2019-05-30] MEDS: HumaLOG SUB-Q SCH ×4 (12:43→21:11)
[2019-05-30] MEDS: CALTRATE PLUS PO SCH ×2 (12:44→21:09)
[2019-05-30] MEDS: PEPCID PO SCH (12:45)
[2019-05-30] MEDS: LANTUS SUB-Q SCH (21:12)
--- NOTE | 2019-05-31 08:03 | Progress Note ---
Subjective Date of service: 05/31/19 Principal diagnosis: Dementia with behavioral disturbance Subjective Comment: The patient is alert but confused. No behavioral concerns. Awaiting placement. Nursing Report: Patient alert and oriented x 3; calm and cooperative during shift. Patient was in dayroom socializing with peers and staff. Patient ate 100% of snack. Pt was compliant with medications. Patient's blood glucose was 148 no coverage needed. No voiced pain or discomfort. O2 @ 2 liters continues via nasal cannula. VSS. No signs of distress noted. MSE Orientation: place Affect: normal Mood: calm Thought Process: Disorganized, Disoriented Perceptions: none Speech: paucity Motor activity: lethargic Level of consciousness: confused Memory: Recent Impaired, Remote Impaired Interaction: cooperative Objective - Criteria for Continued Treatment Criteria for Continued Treatment: Improving Level of Functioning, Stablizing Level of Functioning, Improving Emotional/Socia - Objective Observation Participation Level: Moderate Assessment and Plan - Patient Problems (1) Major neurocognitive disorder due to Alzheimer's disease, with behavioral disturbance Current Visit: Yes Status: Acute Plan to address problem: Patient will be admitted for inpatient psychiatric evaluation, medication adjustment and close monitoring The patient's behavior, mood, sleep and appetite will be closely monitored. Patient will be enrolled in individual and group therapeutic sessions and encouraged to attend. Patient will be provided with a safe and structured environment. Patient's physical health needs will be addressed by the Hospitalist. Social Assessment will be completed and the Lab Rn will work with patient and family to ensure a suitable and safe disposition Medication adjustment will be made as clinically indicated Medications and Allergies Allergies Allergy/AdvReac Type Severity Reaction Status Date / Time codeine Allergy Mild Unknown Verified 05/15/19 22:13 enoxaparin [From Lovenox] Allergy Mild Unknown Verified 05/15/19 22:13 Home Medications Medication Instructions Recorded Confirmed Last Taken Type LORazepam 1 mg PO Q6H PRN 05/15/19 05/15/19 05/14/19 22:00 History 1 mg LORazepam [Ativan] 1 mg PO QHS 05/15/19 05/15/19 05/14/19 22:00 History 1 mg Insulin Glargine [Lantus] 18 unit SUB-Q BID 05/16/19 05/16/19 Unknown History Active Meds: Active Medications Albuterol (Proventil) 2.5 mg IH Q4HRT PRN PRN Reason: Shortness Of Breath Last Admin: 05/21/19 21:30 Dose: 2.5 mg Documented by: Dextrose (D50w (25gm) Syringe) 50 ml IV PRN PRN PRN Reason: Hypoglycemia Famotidine (Pepcid) 20 mg PO QDAY [facility] Last Admin: 05/30/19 12:45 Dose: 20 mg Documented by: Insulin Glargine (Lantus) 18 units SUB-Q QHS [facility] Last Admin: 05/30/19 21:12 Dose: 18 units Documented by: Insulin Human Lispro (Humalog) 0 unit SUB-Q ACHS [facility]; Protocol Last Admin: 05/30/19 21:11 Dose: Not Given Documented by: Multivitamins/Minerals (Caltrate Plus) 1 each PO BID [facility] Last Admin: 05/30/19 21:09 Dose: 1 each Documented by: Results - Results Labs/Vitals: Laboratory Last Values WBC 9.1 K/mm3 (4.5-11.0) 05/17/19 18:08 RBC 3.54 M/mm3 (3.65-5.03) L 05/17/19 18:08 Hgb 10.6 gm/dl (10.1-14.3) 05/17/19 18:08 Hct 32.8 % (30.3-42.9) 05/17/19 18:08 MCV 93 fl (79-97) 05/17/19 18:08 MCH 30 pg (28-32) 05/17/19 18:08 MCHC 32 % (30-34) 05/17/19 18:08 RDW 14.2 % (13.2-15.2) 05/17/19 18:08 Plt Count 198 K/mm3 (140-440) 05/17/19 18:08 Lymph % (Auto) 21.8 % (13.4-35.0) 05/17/19 18:08 [place] % (Auto) 8.9 % (0.0-7.3) H 05/17/19 18:08 Eos % (Auto) 0.7 % (0.0-4.3) 05/17/19 18:08 Baso % (Auto) 0.3 % (0.0-1.8) 05/17/19 18:08 Lymph # 2.0 K/mm3 (1.2-5.4) 05/17/19 18:08 [place] # 0.8 K/mm3 (0.0-0.8) 05/17/19 18:08 Eos # 0.1 K/mm3 (0.0-0.4) 05/17/19 18:08 Baso # 0.0 K/mm3 (0.0-0.1) 05/17/19 18:08 Seg Neutrophils % 68.3 % (40.0-70.0) 05/17/19 18:08 Seg Neutrophils # 6.2 K/mm3 (1.8-7.7) 05/17/19 18:08 POC ABG pH 7.388 (7.35-7.45) 05/17/19 17:58 POC ABG pCO2 52.4 (35-45) H 05/17/19 17:58 POC ABG pO2 70 (80-105) L 05/17/19 17:58 POC ABG HCO3 31.6 (22-26 mml/L) 05/17/19 17:58 POC ABG Total CO2 33 (23-27mmol/L) 05/17/19 17:58 POC ABG O2 Sat 93 05/17/19 17:58 POC ABG Base Excess 7 ((-2) - (+3)mmol/L) 05/17/19 17:58 FiO2 28 % 05/17/19 17:58 Sodium 135 mmol/L (137-145) L 05/27/19 13:09 Potassium 5.3 mmol/L (3.6-5.0) H 05/27/19 13:09 Chloride 97.0 mmol/L (98-107) L 05/27/19 13:09 Carbon Dioxide 27 mmol/L (22-30) 05/27/19 13:09 Anion Gap 16 mmol/L 05/27/19 13:09 BUN 47 mg/dL (7-17) H 05/27/19 13:09 Creatinine 1.3 mg/dL (0.7-1.2) H 05/27/19 13:09 Estimated GFR 39 ml/min 05/27/19 13:09 BUN/Creatinine Ratio 36 % 05/27/19 13:09 Glucose 159 mg/dL (65-100) H 05/27/19 13:09 POC Glucose 91 (70-105) 05/31/19 06:39 Hemoglobin A1c 8.5 % (4-6) H 05/16/19 07:10 Calcium 8.2 mg/dL (8.4-10.2) L 05/27/19 13:09 Total Bilirubin 0.30 mg/dL (0.1-1.2) 05/27/19 13:09 AST 24 units/L (5-40) 05/27/19 13:09 ALT 11 units/L (7-56) 05/27/19 13:09 Alkaline Phosphatase 125 units/L (35-129) 05/27/19 13:09 Total Protein 7.4 g/dL (6.3-8.2) 05/27/19 13:09 Albumin 2.7 g/dL (3.9-5) L 05/27/19 13:09 Albumin/Globulin Ratio 0.6 % 05/27/19 13:09 Triglycerides 113 mg/dL (2-149) 05/16/19 07:10 Cholesterol 111 mg/dL (50-199) 05/16/19 07:10 LDL Cholesterol Direct 63 mg/dL (50-130) 05/16/19 07:10 HDL Cholesterol 26 mg/dL (40-59) L 05/16/19 07:10 Cholesterol/HDL Ratio 4.26 % 05/16/19 07:10 Last Vital Signs Temp 98.7 F 05/30/19 20:50 Pulse 49 L 05/30/19 20:50 Resp 18 05/30/19 20:50 BP 121/44 05/30/19 20:50 Pulse Ox 96 05/31/19 06:25
[2019-05-31] MEDS: HumaLOG SUB-Q SCH ×3 (10:22→18:10)
[2019-05-31] MEDS: PEPCID PO SCH (11:34)
[2019-05-31] MEDS: CALTRATE PLUS PO SCH ×2 (11:34→21:36)
[2019-05-31 16:47] LABS: Bacteria,Urine 2+ /HPF (Negative); Bilirubin,Urine NEG (Negative); Blood,Urine SM (Negative); Color,Urine Yellow (Yellow); Protein,Urine <15 mg/dL mg/dL (Negative); Urobilinogen,Urine < 2.0 mg/dL (<2.0); WBC,Urine > 182.0 /HPF (0.0-6.0)
[2019-05-31] MEDS: LANTUS SUB-Q SCH (23:42)
[2019-06-01] MEDS: HumaLOG SUB-Q SCH ×5 (00:26→21:18)
--- NOTE | 2019-06-01 08:58 | Progress Note ---
Subjective Date of service: 06/01/19 Principal diagnosis: Dementia with behavioral disturbance Subjective Comment: The patient is alert but confused. No behavioral concerns. Awaiting placement. MSE Orientation: place Affect: normal Mood: calm Thought Process: Disorganized, Disoriented Perceptions: none Speech: paucity Motor activity: lethargic Level of consciousness: confused Memory: Recent Impaired, Remote Impaired Interaction: cooperative Objective - Criteria for Continued Treatment Criteria for Continued Treatment: Stablizing Level of Functioning - Objective Observation Participation Level: Moderate Assessment and Plan - Patient Problems (1) Major neurocognitive disorder due to Alzheimer's disease, with behavioral disturbance Current Visit: Yes Status: Acute Plan to address problem: Patient will be admitted for inpatient psychiatric evaluation, medication adjustment and close monitoring The patient's behavior, mood, sleep and appetite will be closely monitored. Patient will be enrolled in individual and group therapeutic sessions and encouraged to attend. Patient will be provided with a safe and structured environment. Patient's physical health needs will be addressed by the Hospitalist. Social Assessment will be completed and the Sheet Metal Engineer will work with patient and family to ensure a suitable and safe disposition Medication adjustment will be made as clinically indicated Medications and Allergies Allergies Allergy/AdvReac Type Severity Reaction Status Date / Time codeine Allergy Mild Unknown Verified 05/15/19 22:13 enoxaparin [From Lovenox] Allergy Mild Unknown Verified 05/15/19 22:13 Home Medications Medication Instructions Recorded Confirmed Last Taken Type LORazepam 1 mg PO Q6H PRN 05/15/19 05/15/19 05/14/19 22:00 History 1 mg LORazepam [Ativan] 1 mg PO QHS 05/15/19 05/15/19 05/14/19 22:00 History 1 mg Insulin Glargine [Lantus] 18 unit SUB-Q BID 05/16/19 05/16/19 Unknown History Active Meds: Active Medications Albuterol (Proventil) 2.5 mg IH Q4HRT PRN PRN Reason: Shortness Of Breath Last Admin: 05/21/19 21:30 Dose: 2.5 mg Documented by: Dextrose (D50w (25gm) Syringe) 50 ml IV PRN PRN PRN Reason: Hypoglycemia Famotidine (Pepcid) 20 mg PO QDAY SINDY Last Admin: 05/31/19 11:34 Dose: 20 mg Documented by: Insulin Glargine (Lantus) 18 units SUB-Q [facility] Last Admin: 05/31/19 23:42 Dose: 18 units Documented by: Insulin Human Lispro (Humalog) 0 unit SUB-Q [facility]; Protocol Last Admin: 06/01/19 00:26 Dose: Not Given Documented by: Multivitamins/Minerals (Caltrate Plus) 1 each PO BID SINDY Last Admin: 05/31/19 21:36 Dose: 1 each Documented by: Results - Results Labs/Vitals: Laboratory Last Values WBC 9.1 K/mm3 (4.5-11.0) 05/17/19 18:08 RBC 3.54 M/mm3 (3.65-5.03) L 05/17/19 18:08 Hgb 10.6 gm/dl (10.1-14.3) 05/17/19 18:08 Hct 32.8 % (30.3-42.9) 05/17/19 18:08 MCV 93 fl (79-97) 05/17/19 18:08 MCH 30 pg (28-32) 05/17/19 18:08 MCHC 32 % (30-34) 05/17/19 18:08 RDW 14.2 % (13.2-15.2) 05/17/19 18:08 Plt Count 198 K/mm3 (140-440) 05/17/19 18:08 Lymph % (Auto) 21.8 % (13.4-35.0) 05/17/19 18:08 [place] % (Auto) 8.9 % (0.0-7.3) H 05/17/19 18:08 Eos % (Auto) 0.7 % (0.0-4.3) 05/17/19 18:08 Baso % (Auto) 0.3 % (0.0-1.8) 05/17/19 18:08 Lymph # 2.0 K/mm3 (1.2-5.4) 05/17/19 18:08 [place] # 0.8 K/mm3 (0.0-0.8) 05/17/19 18:08 Eos # 0.1 K/mm3 (0.0-0.4) 05/17/19 18:08 Baso # 0.0 K/mm3 (0.0-0.1) 05/17/19 18:08 Seg Neutrophils % 68.3 % (40.0-70.0) 05/17/19 18:08 Seg Neutrophils # 6.2 K/mm3 (1.8-7.7) 05/17/19 18:08 POC ABG pH 7.388 (7.35-7.45) 05/17/19 17:58 POC ABG pCO2 52.4 (35-45) H 05/17/19 17:58 POC ABG pO2 70 (80-105) L 05/17/19 17:58 POC ABG HCO3 31.6 (22-26 mml/L) 05/17/19 17:58 POC ABG Total CO2 33 (23-27mmol/L) 05/17/19 17:58 POC ABG O2 Sat 93 05/17/19 17:58 POC ABG Base Excess 7 ((-2) - (+3)mmol/L) 05/17/19 17:58 FiO2 28 % 05/17/19 17:58 Sodium 135 mmol/L (137-145) L 05/27/19 13:09 Potassium 5.3 mmol/L (3.6-5.0) H 05/27/19 13:09 Chloride 97.0 mmol/L (98-107) L 05/27/19 13:09 Carbon Dioxide 27 mmol/L (22-30) 05/27/19 13:09 Anion Gap 16 mmol/L 05/27/19 13:09 BUN 47 mg/dL (7-17) H 05/27/19 13:09 Creatinine 1.3 mg/dL (0.7-1.2) H 05/27/19 13:09 Estimated GFR 39 ml/min 05/27/19 13:09 BUN/Creatinine Ratio 36 % 05/27/19 13:09 Glucose 159 mg/dL (65-100) H 05/27/19 13:09 POC Glucose 117 (70-105) H 06/01/19 08:11 Hemoglobin A1c 8.5 % (4-6) H 05/16/19 07:10 Calcium 8.2 mg/dL (8.4-10.2) L 05/27/19 13:09 Total Bilirubin 0.30 mg/dL (0.1-1.2) 05/27/19 13:09 AST 24 units/L (5-40) 05/27/19 13:09 ALT 11 units/L (7-56) 05/27/19 13:09 Alkaline Phosphatase 125 units/L (35-129) 05/27/19 13:09 Total Protein 7.4 g/dL (6.3-8.2) 05/27/19 13:09 Albumin 2.7 g/dL (3.9-5) L 05/27/19 13:09 Albumin/Globulin Ratio 0.6 % 05/27/19 13:09 Triglycerides 113 mg/dL (2-149) 05/16/19 07:10 Cholesterol 111 mg/dL (50-199) 05/16/19 07:10 LDL Cholesterol Direct 63 mg/dL (50-130) 05/16/19 07:10 HDL Cholesterol 26 mg/dL (40-59) L 05/16/19 07:10 Cholesterol/HDL Ratio 4.26 % 05/16/19 07:10 Urine Color Yellow (Yellow) 05/31/19 Unknown Urine Turbidity Cloudy (Clear) 05/31/19 Unknown Urine pH 5.0 (5.0-7.0) 05/31/19 Unknown Ur Specific [place] 1.012 (1.003-1.030) 05/31/19 Unknown Urine Protein <15 mg/dl mg/dL (Negative) 05/31/19 Unknown Urine Glucose (UA) Neg mg/dL (Negative) 05/31/19 Unknown Urine Ketones Neg mg/dL (Negative) 05/31/19 Unknown Urine Blood Sm (Negative) 05/31/19 Unknown Urine Nitrite Neg (Negative) 05/31/19 Unknown Urine Bilirubin Neg (Negative) 05/31/19 Unknown Urine Urobilinogen < 2.0 mg/dL (<2.0) 05/31/19 Unknown Ur Leukocyte Esterase Lg (Negative) 05/31/19 Unknown Urine WBC (Auto) > 182.0 /HPF (0.0-6.0) H 05/31/19 Unknown Urine RBC (Auto) 9.0 /HPF (0.0-6.0) 05/31/19 Unknown U Epithel Cells (Auto) 3.0 /HPF (0-13.0) 05/31/19 Unknown Urine Bacteria (Auto) 2+ /HPF (Negative) 05/31/19 Unknown Urine WBC Clumps 3+ /HPF 05/31/19 Unknown Last Vital Signs Temp 98.4 F 05/31/19 20:24 Pulse 63 05/31/19 20:24 Resp 18 05/31/19 20:24 BP 138/63 05/31/19 20:24 Pulse Ox 95 05/31/19 20:53
[2019-06-01] MEDS: PEPCID PO SCH (11:24)
[2019-06-01] MEDS: CALTRATE PLUS PO SCH ×2 (11:24→21:17)
[2019-06-01] MEDS: LANTUS SUB-Q SCH (21:23)
[2019-06-02] MEDS: HumaLOG SUB-Q SCH ×4 (08:05→21:11)
--- NOTE | 2019-06-02 08:42 | Progress Note ---
Subjective Date of service: 06/02/19 Principal diagnosis: Dementia with behavioral disturbance Subjective Comment: The patient is alert but confused. No behavioral concerns. Awaiting placement. MSE Orientation: place Affect: normal Mood: calm Thought Process: Disorganized, Disoriented Perceptions: none Speech: paucity Motor activity: lethargic Level of consciousness: confused Memory: Recent Impaired, Remote Impaired Interaction: cooperative Objective - Criteria for Continued Treatment Criteria for Continued Treatment: Stablizing Level of Functioning, Improving Emotional/Socia - Objective Observation Participation Level: Moderate Assessment and Plan - Patient Problems (1) Major neurocognitive disorder due to Alzheimer's disease, with behavioral disturbance Current Visit: Yes Status: Acute Plan to address problem: Patient will be admitted for inpatient psychiatric evaluation, medication adjustment and close monitoring The patient's behavior, mood, sleep and appetite will be closely monitored. Patient will be enrolled in individual and group therapeutic sessions and encouraged to attend. Patient will be provided with a safe and structured environment. Patient's physical health needs will be addressed by the Hospitalist. Social Assessment will be completed and the Amr Physician will work with patient and family to ensure a suitable and safe disposition Medication adjustment will be made as clinically indicated Medications and Allergies Allergies Allergy/AdvReac Type Severity Reaction Status Date / Time codeine Allergy Mild Unknown Verified 05/15/19 22:13 enoxaparin [From Lovenox] Allergy Mild Unknown Verified 05/15/19 22:13 Home Medications Medication Instructions Recorded Confirmed Last Taken Type LORazepam 1 mg PO Q6H PRN 05/15/19 05/15/19 05/14/19 22:00 History 1 mg LORazepam [Ativan] 1 mg PO QHS 05/15/19 05/15/19 05/14/19 22:00 History 1 mg Insulin Glargine [Lantus] 18 unit SUB-Q BID 05/16/19 05/16/19 Unknown History Active Meds: Active Medications Albuterol (Proventil) 2.5 mg IH Q4HRT PRN PRN Reason: Shortness Of Breath Last Admin: 05/21/19 21:30 Dose: 2.5 mg Documented by: Dextrose (D50w (25gm) Syringe) 50 ml IV PRN PRN PRN Reason: Hypoglycemia Famotidine (Pepcid) 20 mg PO QDAY SINDY Last Admin: 06/01/19 11:24 Dose: 20 mg Documented by: Insulin [facility] ([facility]us) [facility] Last Admin: 06/01/19 21:23 Dose: 18 units Documented by: Insulin Human Lispro (Humalog) 0 unit SUB-Q [facility]; Protocol Last Admin: 06/02/19 08:05 Dose: Not Given Documented by: Multivitamins/Minerals (Caltrate Plus) 1 each PO BID [facility] Last Admin: 06/01/19 21:17 Dose: 1 each Documented by: Results - Results Labs/Vitals: Laboratory Last Values WBC 9.1 K/mm3 (4.5-11.0) 05/17/19 18:08 RBC 3.54 M/mm3 (3.65-5.03) L 05/17/19 18:08 Hgb 10.6 gm/dl (10.1-14.3) 05/17/19 18:08 Hct 32.8 % (30.3-42.9) 05/17/19 18:08 MCV 93 fl (79-97) 05/17/19 18:08 MCH 30 pg (28-32) 05/17/19 18:08 MCHC 32 % (30-34) 05/17/19 18:08 RDW 14.2 % (13.2-15.2) 05/17/19 18:08 Plt Count 198 K/mm3 (140-440) 05/17/19 18:08 Lymph % (Auto) 21.8 % (13.4-35.0) 05/17/19 18:08 [place] % (Auto) 8.9 % (0.0-7.3) H 05/17/19 18:08 Eos % (Auto) 0.7 % (0.0-4.3) 05/17/19 18:08 Baso % (Auto) 0.3 % (0.0-1.8) 05/17/19 18:08 Lymph # 2.0 K/mm3 (1.2-5.4) 05/17/19 18:08 [place] # 0.8 K/mm3 (0.0-0.8) 05/17/19 18:08 Eos # 0.1 K/mm3 (0.0-0.4) 05/17/19 18:08 Baso # 0.0 K/mm3 (0.0-0.1) 05/17/19 18:08 Seg Neutrophils % 68.3 % (40.0-70.0) 05/17/19 18:08 Seg Neutrophils # 6.2 K/mm3 (1.8-7.7) 05/17/19 18:08 POC ABG pH 7.388 (7.35-7.45) 05/17/19 17:58 POC ABG pCO2 52.4 (35-45) H 05/17/19 17:58 POC ABG pO2 70 (80-105) L 05/17/19 17:58 POC ABG HCO3 31.6 (22-26 mml/L) 05/17/19 17:58 POC ABG Total CO2 33 (23-27mmol/L) 05/17/19 17:58 POC ABG O2 Sat 93 05/17/19 17:58 POC ABG Base Excess 7 ((-2) - (+3)mmol/L) 05/17/19 17:58 FiO2 28 % 05/17/19 17:58 Sodium 135 mmol/L (137-145) L 05/27/19 13:09 Potassium 5.3 mmol/L (3.6-5.0) H 05/27/19 13:09 Chloride 97.0 mmol/L (98-107) L 05/27/19 13:09 Carbon Dioxide 27 mmol/L (22-30) 05/27/19 13:09 Anion Gap 16 mmol/L 05/27/19 13:09 BUN 47 mg/dL (7-17) H 05/27/19 13:09 Creatinine 1.3 mg/dL (0.7-1.2) H 05/27/19 13:09 Estimated GFR 39 ml/min 05/27/19 13:09 BUN/Creatinine Ratio 36 % 05/27/19 13:09 Glucose 159 mg/dL (65-100) H 05/27/19 13:09 POC Glucose 94 (70-105) 06/02/19 06:42 Hemoglobin A1c 8.5 % (4-6) H 05/16/19 07:10 Calcium 8.2 mg/dL (8.4-10.2) L 05/27/19 13:09 Total Bilirubin 0.30 mg/dL (0.1-1.2) 05/27/19 13:09 AST 24 units/L (5-40) 05/27/19 13:09 ALT 11 units/L (7-56) 05/27/19 13:09 Alkaline Phosphatase 125 units/L (35-129) 05/27/19 13:09 Total Protein 7.4 g/dL (6.3-8.2) 05/27/19 13:09 Albumin 2.7 g/dL (3.9-5) L 05/27/19 13:09 Albumin/Globulin Ratio 0.6 % 05/27/19 13:09 Triglycerides 113 mg/dL (2-149) 05/16/19 07:10 Cholesterol 111 mg/dL (50-199) 05/16/19 07:10 LDL Cholesterol Direct 63 mg/dL (50-130) 05/16/19 07:10 HDL Cholesterol 26 mg/dL (40-59) L 05/16/19 07:10 Cholesterol/HDL Ratio 4.26 % 05/16/19 07:10 Urine Color Yellow (Yellow) 05/31/19 Unknown Urine Turbidity Cloudy (Clear) 05/31/19 Unknown Urine pH 5.0 (5.0-7.0) 05/31/19 Unknown Ur Specific [place] 1.012 (1.003-1.030) 05/31/19 Unknown Urine Protein <15 mg/dl mg/dL (Negative) 05/31/19 Unknown Urine Glucose (UA) Neg mg/dL (Negative) 05/31/19 Unknown Urine Ketones Neg mg/dL (Negative) 05/31/19 Unknown Urine Blood Sm (Negative) 05/31/19 Unknown Urine Nitrite Neg (Negative) 05/31/19 Unknown Urine Bilirubin Neg (Negative) 05/31/19 Unknown Urine Urobilinogen < 2.0 mg/dL (<2.0) 05/31/19 Unknown Ur Leukocyte Esterase Lg (Negative) 05/31/19 Unknown Urine WBC (Auto) > 182.0 /HPF (0.0-6.0) H 05/31/19 Unknown Urine RBC (Auto) 9.0 /HPF (0.0-6.0) 05/31/19 Unknown U Epithel Cells (Auto) 3.0 /HPF (0-13.0) 05/31/19 Unknown Urine Bacteria (Auto) 2+ /HPF (Negative) 05/31/19 Unknown Urine WBC Clumps 3+ /HPF 05/31/19 Unknown Last Vital Signs Temp 98.2 F 06/01/19 22:00 Pulse 52 L 06/01/19 22:00 Resp 18 06/01/19 22:00 BP 121/47 06/01/19 22:00 Pulse Ox 97 06/01/19 22:00
[2019-06-02] MEDS: PEPCID PO SCH (09:20)
[2019-06-02] MEDS: CALTRATE PLUS PO SCH ×2 (09:20→21:10)
[2019-06-02] MEDS: LANTUS SUB-Q SCH (21:10)
[2019-06-03] MEDS: HumaLOG SUB-Q SCH ×4 (07:27→21:13)
[2019-06-03] MEDS: CALTRATE PLUS PO SCH ×2 (09:33→21:10)
[2019-06-03] MEDS: PEPCID PO SCH (09:33)
[2019-06-03] MEDS: PROVENTIL IH PRN (21:10)
[2019-06-03] MEDS: LANTUS SUB-Q SCH (21:10)
--- NOTE | 2019-06-03 21:47 | Progress Note ---
Assessment and Plan - Patient Problems (1) Acute cystitis Current Visit: Yes Status: Acute Qualifiers: Hematuria presence: without hematuria Qualified Code(s): N30.00 - Acute cystitis without hematuria Plan to address problem: Initiaated on Ceftin pending cultures (2) IDDM (insulin dependent diabetes mellitus) Current Visit: Yes Status: Chronic Plan to address problem: A1c 8.5 Adjusted her insulin upward Accucheks bid and coverage (3) Respiratory failure with hypoxia Current Visit: Yes Status: Chronic Qualifiers: Chronicity: chronic Qualified Code(s): J96.11 - Chronic respiratory failure with hypoxia Plan to address problem: Cont O2 Patient has portable O2 equipment (4) Malnutrition of moderate degree Current Visit: Yes Status: Chronic Plan to address problem: Albumin 2.6 dietitian consult (5) Hypocalcemia Current Visit: Yes Status: Chronic Plan to address problem: Caltrate added (6) Anemia Current Visit: Yes Status: Chronic Qualifiers: Anemia type: unspecified type Qualified Code(s): D64.9 - Anemia, unspeci fied Plan to address problem: Mild No w//u Nutritional (7) DVT prophylaxis Current Visit: Yes Status: Acute Plan to address problem: On Lovenox and GI prophylaxis Subjective Date of service: 06/03/19 Principal diagnosis: Dementia with behavioral disturbance Interval history: C/o Dysuria.Reevaluating for 182 wbc in urine.No fever or chills. Objective - Constitutional Vitals: Vital Signs - 12hr 06/03/19 06/03/19 06/03/19 19:50 21:11 21:12 Temperature 98.8 F Pulse Rate 68 Pulse Rate [ 61 Anterior Bilateral Throughout] Respiratory 20 Rate Respiratory 18 Rate [Anterior Bilateral Throughout] Blood Pressure 144/55 O2 Sat by Pulse 97 100 Oximetry General appearance: Present: no acute distress, well-nourished - EENT Eyes: PERRL, EOM intact ENT: hearing intact, clear oral mucosa Ears: bilateral: normal - Neck Neck: supple, normal ROM - Respiratory Respiratory effort: normal Respiratory: bilateral: CTA - Breasts Breasts: normal - Cardiovascular Heart rate: 78 Rhythm: regular Heart Sounds: Present: S1 & S2. Absent: gallop, rub Extremities: pulses intact, No edema, normal color, Full ROM - Gastrointestinal General gastrointestinal: Present: soft, non-tender, non-distended, normal bowel sounds - Genitourinary Female genitourinary: normal - Integumentary Integumentary: clear, warm, dry - Musculoskeletal Musculoskeletal: 1, strength equal bilaterally - Neurologic Neurologic: moves all extremities - Psychiatric Psychiatric: memory intact, appropriate mood/affect, intact judgment & insight - Labs CBC & Chem 7: 05/17/19 18:08 05/27/19 13:09 Labs: Abnormal lab results 06/03/19 06/03/19 06/03/19 Range/Units 11:57 16:35 20:04 POC Glucose 137 H 156 H 200 H (70-105)
[2019-06-04] MEDS: CEFTIN PO SCH ×3 (03:18→21:07)
[2019-06-04] MEDS: PROVENTIL IH PRN ×2 (08:18→16:42)
[2019-06-04] MEDS: CALTRATE PLUS PO SCH ×2 (09:45→21:07)
[2019-06-04] MEDS: PEPCID PO SCH (09:45)
[2019-06-04] MEDS: HumaLOG SUB-Q SCH ×4 (09:46→21:01)
--- NOTE | 2019-06-04 15:05 | Progress Note ---
Subjective Date of service: 06/03/19 Principal diagnosis: Dementia with behavioral disturbance Subjective Comment: The patient is alert but confused. No behavioral concerns. Awaiting placement. MSE Orientation: place Affect: normal Mood: calm Thought Process: Disorganized, Disoriented Perceptions: none Speech: paucity Motor activity: lethargic Level of consciousness: confused Memory: Recent Impaired, Remote Impaired Interaction: cooperative Objective - Criteria for Continued Treatment Criteria for Continued Treatment: Stablizing Level of Functioning, Improving Emotional/Socia - Objective Observation Participation Level: Moderate Assessment and Plan - Patient Problems (1) Major neurocognitive disorder due to Alzheimer's disease, with behavioral disturbance Current Visit: Yes Status: Acute Plan to address problem: Patient will be admitted for inpatient psychiatric evaluation, medication adjustment and close monitoring The patient's behavior, mood, sleep and appetite will be closely monitored. Patient will be enrolled in individual and group therapeutic sessions and encouraged to attend. Patient will be provided with a safe and structured environment. Patient's physical health needs will be addressed by the Hospitalist. Social Assessment will be completed and the Counter Tacker will work with patient and family to ensure a suitable and safe disposition Medication adjustment will be made as clinically indicated Medications and Allergies Allergies Allergy/AdvReac Type Severity Reaction Status Date / Time codeine Allergy Mild Unknown Verified 05/15/19 22:13 enoxaparin [From Lovenox] Allergy Mild Unknown Verified 05/15/19 22:13 Home Medications Medication Instructions Recorded Confirmed Last Taken Type LORazepam 1 mg PO Q6H PRN 05/15/19 05/15/19 05/14/19 22:00 History 1 mg LORazepam [Ativan] 1 mg PO QHS 05/15/19 05/15/19 05/14/19 22:00 History 1 mg Insulin Glargine [Lantus] 18 unit SUB-Q BID 05/16/19 05/16/19 Unknown History Active Meds: Active Medications Albuterol (Proventil) 2.5 mg IH Q4HRT PRN PRN Reason: Shortness Of Breath Last Admin: 06/04/19 08:18 Dose: 2.5 mg Documented by: Cefuroxime Axetil (Ceftin) 500 mg PO Q12HR SINDY Last Admin: 06/04/19 09:45 Dose: 500 mg Documented by: Dextrose (D50w (25gm) Syringe) 50 ml IV PRN PRN PRN Reason: Hypoglycemia Famotidine (Pepcid) 20 mg PO QDAY [facility] Last Admin: 06/04/19 09:45 Dose: 20 mg Documented by: Insulin Glargine (Lantus) 18 units SUB-Q QHS [facility] Last Admin: 06/03/19 21:10 Dose: 18 units Documented by: Insulin Human Lispro (Humalog) 0 unit SUB-Q [facility]; Protocol Last Admin: 06/04/19 09:46 Dose: Not Given Documented by: Multivitamins/Minerals (Caltrate Plus) 1 each PO BID [facility] Last Admin: 06/04/19 09:45 Dose: 1 each Documented by: Results - Results Labs/Vitals: Laboratory Last Values WBC 9.1 K/mm3 (4.5-11.0) 05/17/19 18:08 RBC 3.54 M/mm3 (3.65-5.03) L 05/17/19 18:08 Hgb 10.6 gm/dl (10.1-14.3) 05/17/19 18:08 Hct 32.8 % (30.3-42.9) 05/17/19 18:08 MCV 93 fl (79-97) 05/17/19 18:08 MCH 30 pg (28-32) 05/17/19 18:08 MCHC 32 % (30-34) 05/17/19 18:08 RDW 14.2 % (13.2-15.2) 05/17/19 18:08 Plt Count 198 K/mm3 (140-440) 05/17/19 18:08 Lymph % (Auto) 21.8 % (13.4-35.0) 05/17/19 18:08 [place] % (Auto) 8.9 % (0.0-7.3) H 05/17/19 18:08 Eos % (Auto) 0.7 % (0.0-4.3) 05/17/19 18:08 Baso % (Auto) 0.3 % (0.0-1.8) 05/17/19 18:08 Lymph # 2.0 K/mm3 (1.2-5.4) 05/17/19 18:08 [place] # 0.8 K/mm3 (0.0-0.8) 05/17/19 18:08 Eos # 0.1 K/mm3 (0.0-0.4) 05/17/19 18:08 Baso # 0.0 K/mm3 (0.0-0.1) 05/17/19 18:08 Seg Neutrophils % 68.3 % (40.0-70.0) 05/17/19 18:08 Seg Neutrophils # 6.2 K/mm3 (1.8-7.7) 05/17/19 18:08 POC ABG pH 7.388 (7.35-7.45) 05/17/19 17:58 POC ABG pCO2 52.4 (35-45) H 05/17/19 17:58 POC ABG pO2 70 (80-105) L 05/17/19 17:58 POC ABG HCO3 31.6 (22-26 mml/L) 05/17/19 17:58 POC ABG Total CO2 33 (23-27mmol/L) 05/17/19 17:58 POC ABG O2 Sat 93 05/17/19 17:58 POC ABG Base Excess 7 ((-2) - (+3)mmol/L) 05/17/19 17:58 FiO2 28 % 05/17/19 17:58 Sodium 135 mmol/L (137-145) L 05/27/19 13:09 Potassium 5.3 mmol/L (3.6-5.0) H 05/27/19 13:09 Chloride 97.0 mmol/L (98-107) L 05/27/19 13:09 Carbon Dioxide 27 mmol/L (22-30) 05/27/19 13:09 Anion Gap 16 mmol/L 05/27/19 13:09 BUN 47 mg/dL (7-17) H 05/27/19 13:09 Creatinine 1.3 mg/dL (0.7-1.2) H 05/27/19 13:09 Estimated GFR 39 ml/min 05/27/19 13:09 BUN/Creatinine Ratio 36 % 05/27/19 13:09 Glucose 159 mg/dL (65-100) H 05/27/19 13:09 POC Glucose 241 (70-105) H 06/04/19 11:41 Hemoglobin A1c 8.5 % (4-6) H 05/16/19 07:10 Calcium 8.2 mg/dL (8.4-10.2) L 05/27/19 13:09 Total Bilirubin 0.30 mg/dL (0.1-1.2) 05/27/19 13:09 AST 24 units/L (5-40) 05/27/19 13:09 ALT 11 units/L (7-56) 05/27/19 13:09 Alkaline Phosphatase 125 units/L (35-129) 05/27/19 13:09 Total Protein 7.4 g/dL (6.3-8.2) 05/27/19 13:09 Albumin 2.7 g/dL (3.9-5) L 05/27/19 13:09 Albumin/Globulin Ratio 0.6 % 05/27/19 13:09 Triglycerides 113 mg/dL (2-149) 05/16/19 07:10 Cholesterol 111 mg/dL (50-199) 05/16/19 07:10 LDL Cholesterol Direct 63 mg/dL (50-130) 05/16/19 07:10 HDL Cholesterol 26 mg/dL (40-59) L 05/16/19 07:10 Cholesterol/HDL Ratio 4.26 % 05/16/19 07:10 Urine Color Yellow (Yellow) 05/31/19 Unknown Urine Turbidity Cloudy (Clear) 05/31/19 Unknown Urine pH 5.0 (5.0-7.0) 05/31/19 Unknown Ur Specific [place] 1.012 (1.003-1.030) 05/31/19 Unknown Urine Protein <15 mg/dl mg/dL (Negative) 05/31/19 Unknown Urine Glucose (UA) Neg mg/dL (Negative) 05/31/19 Unknown Urine Ketones Neg mg/dL (Negative) 05/31/19 Unknown Urine Blood Sm (Negative) 05/31/19 Unknown Urine Nitrite Neg (Negative) 05/31/19 Unknown Urine Bilirubin Neg (Negative) 05/31/19 Unknown Urine Urobilinogen < 2.0 mg/dL (<2.0) 05/31/19 Unknown Ur Leukocyte Esterase Lg (Negative) 05/31/19 Unknown Urine WBC (Auto) > 182.0 /HPF (0.0-6.0) H 05/31/19 Unknown Urine RBC (Auto) 9.0 /HPF (0.0-6.0) 05/31/19 Unknown U Epithel Cells (Auto) 3.0 /HPF (0-13.0) 05/31/19 Unknown Urine Bacteria (Auto) 2+ /HPF (Negative) 05/31/19 Unknown Urine WBC Clumps 3+ /HPF 05/31/19 Unknown Last Vital Signs Temp 98.0 F 06/04/19 09:35 Pulse 71 06/04/19 09:35 Resp 16 06/04/19 09:35 BP 127/46 06/04/19 09:50 Pulse Ox 94 06/04/19 09:35
--- NOTE | 2019-06-04 15:11 | Progress Note ---
Subjective Date of service: 06/04/19 Principal diagnosis: Dementia with behavioral disturbance Subjective Comment: The patient is alert but confused. No behavioral concerns. Awaiting placement. Nursing staff concerned about patient's breathing. She received Respiratory Therapy earlier today with improved breathing. Will order CBC and CXR MSE Orientation: place Affect: normal Mood: calm Thought Process: Disorganized, Disoriented Perceptions: none Speech: paucity Motor activity: lethargic Level of consciousness: confused Memory: Recent Impaired, Remote Impaired Interaction: cooperative Objective - Criteria for Continued Treatment Criteria for Continued Treatment: Stablizing Level of Functioning, Improving Emotional/Socia - Objective Observation Participation Level: Minimal Assessment and Plan - Patient Problems (1) Major neurocognitive disorder due to Alzheimer's disease, with behavioral disturbance Current Visit: Yes Status: Acute Plan to address problem: Patient will be admitted for inpatient psychiatric evaluation, medication adjustment and close monitoring The patient's behavior, mood, sleep and appetite will be closely monitored. Patient will be enrolled in individual and group therapeutic sessions and encouraged to attend. Patient will be provided with a safe and structured environment. Patient's physical health needs will be addressed by the Hospitalist. Social Assessment will be completed and the Lithopone Charger will work with patient and family to ensure a suitable and safe disposition Medication adjustment will be made as clinically indicated Medications and Allergies Allergies Allergy/AdvReac Type Severity Reaction Status Date / Time codeine Allergy Mild Unknown Verified 05/15/19 22:13 enoxaparin [From Lovenox] Allergy Mild Unknown Verified 05/15/19 22:13 Home Medications Medication Instructions Recorded Confirmed Last Taken Type LORazepam 1 mg PO Q6H PRN 05/15/19 05/15/19 05/14/19 22:00 History 1 mg LORazepam [Ativan] 1 mg PO QHS 05/15/19 05/15/19 05/14/19 22:00 History 1 mg Insulin Glargine [Lantus] 18 unit SUB-Q BID 05/16/19 05/16/19 Unknown History Active Meds: Active Medications Albuterol (Proventil) 2.5 mg IH Q4HRT PRN PRN Reason: Shortness Of Breath Last Admin: 06/04/19 08:18 Dose: 2.5 mg Documented by: Cefuroxime Axetil (Ceftin) 500 mg PO Q12HR SINDY Last Admin: 06/04/19 09:45 Dose: 500 mg Documented by: Dextrose (D50w (25gm) Syringe) 50 ml IV PRN PRN PRN Reason: Hypoglycemia Famotidine (Pepcid) 20 mg PO QDAY [facility] Last Admin: 06/04/19 09:45 Dose: 20 mg Documented by: Insulin Glargine (Lantus) 18 units SUB-Q QHS [facility] Last Admin: 06/03/19 21:10 Dose: 18 units Documented by: Insulin Human Lispro (Humalog) 0 unit SUB-Q ACHS [facility]; Protocol Last Admin: 06/04/19 09:46 Dose: Not Given Documented by: Multivitamins/Minerals (Caltrate Plus) 1 each PO BID [facility] Last Admin: 06/04/19 09:45 Dose: 1 each Documented by: Results - Results Labs/Vitals: Laboratory Last Values WBC 9.1 K/mm3 (4.5-11.0) 05/17/19 18:08 RBC 3.54 M/mm3 (3.65-5.03) L 05/17/19 18:08 Hgb 10.6 gm/dl (10.1-14.3) 05/17/19 18:08 Hct 32.8 % (30.3-42.9) 05/17/19 18:08 MCV 93 fl (79-97) 05/17/19 18:08 MCH 30 pg (28-32) 05/17/19 18:08 MCHC 32 % (30-34) 05/17/19 18:08 RDW 14.2 % (13.2-15.2) 05/17/19 18:08 Plt Count 198 K/mm3 (140-440) 05/17/19 18:08 Lymph % (Auto) 21.8 % (13.4-35.0) 05/17/19 18:08 [place] % (Auto) 8.9 % (0.0-7.3) H 05/17/19 18:08 Eos % (Auto) 0.7 % (0.0-4.3) 05/17/19 18:08 Baso % (Auto) 0.3 % (0.0-1.8) 05/17/19 18:08 Lymph # 2.0 K/mm3 (1.2-5.4) 05/17/19 18:08 [place] # 0.8 K/mm3 (0.0-0.8) 05/17/19 18:08 Eos # 0.1 K/mm3 (0.0-0.4) 05/17/19 18:08 Baso # 0.0 K/mm3 (0.0-0.1) 05/17/19 18:08 Seg Neutrophils % 68.3 % (40.0-70.0) 05/17/19 18:08 Seg Neutrophils # 6.2 K/mm3 (1.8-7.7) 05/17/19 18:08 POC ABG pH 7.388 (7.35-7.45) 05/17/19 17:58 POC ABG pCO2 52.4 (35-45) H 05/17/19 17:58 POC ABG pO2 70 (80-105) L 05/17/19 17:58 POC ABG HCO3 31.6 (22-26 mml/L) 05/17/19 17:58 POC ABG Total CO2 33 (23-27mmol/L) 05/17/19 17:58 POC ABG O2 Sat 93 05/17/19 17:58 POC ABG Base Excess 7 ((-2) - (+3)mmol/L) 05/17/19 17:58 FiO2 28 % 05/17/19 17:58 Sodium 135 mmol/L (137-145) L 05/27/19 13:09 Potassium 5.3 mmol/L (3.6-5.0) H 05/27/19 13:09 Chloride 97.0 mmol/L (98-107) L 05/27/19 13:09 Carbon Dioxide 27 mmol/L (22-30) 05/27/19 13:09 Anion Gap 16 mmol/L 05/27/19 13:09 BUN 47 mg/dL (7-17) H 05/27/19 13:09 Creatinine 1.3 mg/dL (0.7-1.2) H 05/27/19 13:09 Estimated GFR 39 ml/min 05/27/19 13:09 BUN/Creatinine Ratio 36 % 05/27/19 13:09 Glucose 159 mg/dL (65-100) H 05/27/19 13:09 POC Glucose 241 (70-105) H 06/04/19 11:41 Hemoglobin A1c 8.5 % (4-6) H 05/16/19 07:10 Calcium 8.2 mg/dL (8.4-10.2) L 05/27/19 13:09 Total Bilirubin 0.30 mg/dL (0.1-1.2) 05/27/19 13:09 AST 24 units/L (5-40) 05/27/19 13:09 ALT 11 units/L (7-56) 05/27/19 13:09 Alkaline Phosphatase 125 units/L (35-129) 05/27/19 13:09 Total Protein 7.4 g/dL (6.3-8.2) 05/27/19 13:09 Albumin 2.7 g/dL (3.9-5) L 05/27/19 13:09 Albumin/Globulin Ratio 0.6 % 05/27/19 13:09 Triglycerides 113 mg/dL (2-149) 05/16/19 07:10 Cholesterol 111 mg/dL (50-199) 05/16/19 07:10 LDL Cholesterol Direct 63 mg/dL (50-130) 05/16/19 07:10 HDL Cholesterol 26 mg/dL (40-59) L 05/16/19 07:10 Cholesterol/HDL Ratio 4.26 % 05/16/19 07:10 Urine Color Yellow (Yellow) 05/31/19 Unknown Urine Turbidity Cloudy (Clear) 05/31/19 Unknown Urine pH 5.0 (5.0-7.0) 05/31/19 Unknown Ur Specific [place] 1.012 (1.003-1.030) 05/31/19 Unknown Urine Protein <15 mg/dl mg/dL (Negative) 05/31/19 Unknown Urine Glucose (UA) Neg mg/dL (Negative) 05/31/19 Unknown Urine Ketones Neg mg/dL (Negative) 05/31/19 Unknown Urine Blood Sm (Negative) 05/31/19 Unknown Urine Nitrite Neg (Negative) 05/31/19 Unknown Urine Bilirubin Neg (Negative) 05/31/19 Unknown Urine Urobilinogen < 2.0 mg/dL (<2.0) 05/31/19 Unknown Ur Leukocyte Esterase Lg (Negative) 05/31/19 Unknown Urine WBC (Auto) > 182.0 /HPF (0.0-6.0) H 05/31/19 Unknown Urine RBC (Auto) 9.0 /HPF (0.0-6.0) 05/31/19 Unknown U Epithel Cells (Auto) 3.0 /HPF (0-13.0) 05/31/19 Unknown Urine Bacteria (Auto) 2+ /HPF (Negative) 05/31/19 Unknown Urine WBC Clumps 3+ /HPF 05/31/19 Unknown Last Vital Signs Temp 98.0 F 06/04/19 09:35 Pulse 71 06/04/19 09:35 Resp 16 06/04/19 09:35 BP 127/46 06/04/19 09:50 Pulse Ox 94 06/04/19 09:35
[2019-06-04 16:49] LABS: Basophils % (Auto) 0.6 % (0.0-1.8); Eosinophils # (Auto) 0.1 K/mm3 (0.0-0.4); Eosinophils % (Auto) 1.6 % (0.0-4.3); Hematocrit 29.9 % (30.3-42.9); Hemoglobin 9.6 gm/dl (10.1-14.3); Lymphocytes # (Auto) 1.5 K/mm3 (1.2-5.4); Lymphocytes % (Auto) 21.1 % (13.4-35.0); Mean Corpuscular HGB Conc 32 % (30-34); Mean Corpuscular Volume 93 fl (79-97); Monocytes # (Auto) 0.5 K/mm3 (0.0-0.8); Monocytes % (Auto) 7.4 % (0.0-7.3); Platelet Count 219 K/mm3 (140-440); Red Blood Count 3.21 M/mm3 (3.65-5.03)
[2019-06-04] MEDS: LANTUS SUB-Q SCH (21:02)
--- NOTE | 2019-06-04 22:24 | XRay Report ---
CHEST 1 VIEW INDICATION: Breathing Difficulty. COMPARISON: 05/27/2019. FINDINGS: Support devices: None. Heart: Normal. Lungs/Pleura: Pleural effusions do not appear significantly changed. Pulmonary edema is again noted, relatively stable as well. No pneumothorax. IMPRESSION: 1. Congestive heart failure, not significantly changed. Signer Name: Chicho Ayon MD Signed: 06/04/2019 10:19 PM Workstation Name: [id number]
[2019-06-05] MEDS: CEFTIN PO SCH ×2 (11:58→21:37)
[2019-06-05] MEDS: CALTRATE PLUS PO SCH ×2 (11:58→21:41)
[2019-06-05] MEDS: PEPCID PO SCH (11:58)
[2019-06-05] MEDS: HumaLOG SUB-Q SCH ×4 (13:17→21:38)
--- NOTE | 2019-06-05 13:55 | Progress Note ---
Subjective Date of service: 06/05/19 Principal diagnosis: Dementia with behavioral disturbance Subjective Comment: The patient is alert but confused. No behavioral concerns. Awaiting placement. 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 Patient will be enrolled in individual and group therapeutic sessions and encouraged to attend. Patient will be provided with a safe and structured environment. Patient's physical health needs will be addressed by the Hospitalist. Social Assessment will be completed and the Integration Aide will work with patient and family to ensure a suitable and safe disposition Medication adjustment will be made as clinically indicated Medications and Allergies Allergies Allergy/AdvReac Type Severity Reaction Status Date / Time codeine Allergy Mild Unknown Verified 05/15/19 22:13 enoxaparin [From Lovenox] Allergy Mild Unknown Verified 05/15/19 22:13 Home Medications Medication Instructions Recorded Confirmed Last Taken Type LORazepam 1 mg PO Q6H PRN 05/15/19 05/15/19 05/14/19 22:00 History 1 mg LORazepam [Ativan] 1 mg PO QHS 05/15/19 05/15/19 05/14/19 22:00 History 1 mg Insulin Glargine [Lantus] 18 unit SUB-Q BID 05/16/19 05/16/19 Unknown History Active Meds: Active Medications Albuterol (Proventil) 2.5 mg IH Q4HRT PRN PRN Reason: Shortness Of Breath Last Admin: 06/04/19 16:42 Dose: 2.5 mg Documented by: Cefuroxime Axetil (Ceftin) 500 mg PO Q12HR [facility] Last Admin: 06/05/19 11:58 Dose: 500 mg Documented by: Dextrose (D50w (25gm) Syringe) 50 ml IV PRN PRN PRN Reason: Hypoglycemia Famotidine (Pepcid) 20 mg PO QDAY [facility] Last Admin: 06/05/19 11:58 Dose: 20 mg Documented by: Insulin Glargine (Lantus) 18 units SUB-Q QHS [facility] Last Admin: 06/04/19 21:02 Dose: 18 units Documented by: Insulin Human Lispro (Humalog) 0 unit SUB-Q ACHS [facility]; Protocol Last Admin: 06/05/19 13:22 Dose: 2 unit Documented by: Multivitamins/Minerals (Caltrate Plus) 1 each PO BID [facility] Last Admin: 06/05/19 11:58 Dose: 1 each Documented by: Results - Results Labs/Vitals: Laboratory Last Values WBC 6.9 K/mm3 (4.5-11.0) 06/04/19 16:08 RBC 3.21 M/mm3 (3.65-5.03) L 06/04/19 16:08 Hgb 9.6 gm/dl (10.1-14.3) L 06/04/19 16:08 Hct 29.9 % (30.3-42.9) L 06/04/19 16:08 MCV 93 fl (79-97) 06/04/19 16:08 MCH 30 pg (28-32) 06/04/19 16:08 MCHC 32 % (30-34) 06/04/19 16:08 RDW 15.0 % (13.2-15.2) 06/04/19 16:08 Plt Count 219 K/mm3 (140-440) 06/04/19 16:08 Lymph % (Auto) 21.1 % (13.4-35.0) 06/04/19 16:08 [place] % (Auto) 7.4 % (0.0-7.3) H 06/04/19 16:08 Eos % (Auto) 1.6 % (0.0-4.3) 06/04/19 16:08 Baso % (Auto) 0.6 % (0.0-1.8) 06/04/19 16:08 Lymph # 1.5 K/mm3 (1.2-5.4) 06/04/19 16:08 [place] # 0.5 K/mm3 (0.0-0.8) 06/04/19 16:08 Eos # 0.1 K/mm3 (0.0-0.4) 06/04/19 16:08 Baso # 0.0 K/mm3 (0.0-0.1) 06/04/19 16:08 Seg Neutrophils % 69.3 % (40.0-70.0) 06/04/19 16:08 Seg Neutrophils # 4.8 K/mm3 (1.8-7.7) 06/04/19 16:08 POC ABG pH 7.388 (7.35-7.45) 05/17/19 17:58 POC ABG pCO2 52.4 (35-45) H 05/17/19 17:58 POC ABG pO2 70 (80-105) L 05/17/19 17:58 POC ABG HCO3 31.6 (22-26 mml/L) 05/17/19 17:58 POC ABG Total CO2 33 (23-27mmol/L) 05/17/19 17:58 POC ABG O2 Sat 93 05/17/19 17:58 POC ABG Base Excess 7 ((-2) - (+3)mmol/L) 05/17/19 17:58 FiO2 28 % 05/17/19 17:58 Sodium 135 mmol/L (137-145) L 05/27/19 13:09 Potassium 5.3 mmol/L (3.6-5.0) H 05/27/19 13:09 Chloride 97.0 mmol/L (98-107) L 05/27/19 13:09 Carbon Dioxide 27 mmol/L (22-30) 05/27/19 13:09 Anion Gap 16 mmol/L 05/27/19 13:09 BUN 47 mg/dL (7-17) H 05/27/19 13:09 Creatinine 1.3 mg/dL (0.7-1.2) H 05/27/19 13:09 Estimated GFR 39 ml/min 05/27/19 13:09 BUN/Creatinine Ratio 36 % 05/27/19 13:09 Glucose 159 mg/dL (65-100) H 05/27/19 13:09 POC Glucose 168 (70-105) H 06/05/19 11:41 Hemoglobin A1c 8.5 % (4-6) H 05/16/19 07:10 Calcium 8.2 mg/dL (8.4-10.2) L 05/27/19 13:09 Total Bilirubin 0.30 mg/dL (0.1-1.2) 05/27/19 13:09 AST 24 units/L (5-40) 05/27/19 13:09 ALT 11 units/L (7-56) 05/27/19 13:09 Alkaline Phosphatase 125 units/L (35-129) 05/27/19 13:09 Total Protein 7.4 g/dL (6.3-8.2) 05/27/19 13:09 Albumin 2.7 g/dL (3.9-5) L 05/27/19 13:09 Albumin/Globulin Ratio 0.6 % 05/27/19 13:09 Triglycerides 113 mg/dL (2-149) 05/16/19 07:10 Cholesterol 111 mg/dL (50-199) 05/16/19 07:10 LDL Cholesterol Direct 63 mg/dL (50-130) 05/16/19 07:10 HDL Cholesterol 26 mg/dL (40-59) L 05/16/19 07:10 Cholesterol/HDL Ratio 4.26 % 05/16/19 07:10 Urine Color Yellow (Yellow) 05/31/19 Unknown Urine Turbidity Cloudy (Clear) 05/31/19 Unknown Urine pH 5.0 (5.0-7.0) 05/31/19 Unknown Ur Specific [place] 1.012 (1.003-1.030) 05/31/19 Unknown Urine Protein <15 mg/dl mg/dL (Negative) 05/31/19 Unknown Urine Glucose (UA) Neg mg/dL (Negative) 05/31/19 Unknown Urine Ketones Neg mg/dL (Negative) 05/31/19 Unknown Urine Blood Sm (Negative) 05/31/19 Unknown Urine Nitrite Neg (Negative) 05/31/19 Unknown Urine Bilirubin Neg (Negative) 05/31/19 Unknown Urine Urobilinogen < 2.0 mg/dL (<2.0) 05/31/19 Unknown Ur Leukocyte Esterase Lg (Negative) 05/31/19 Unknown Urine WBC (Auto) > 182.0 /HPF (0.0-6.0) H 05/31/19 Unknown Urine RBC (Auto) 9.0 /HPF (0.0-6.0) 05/31/19 Unknown U Epithel Cells (Auto) 3.0 /HPF (0-13.0) 05/31/19 Unknown Urine Bacteria (Auto) 2+ /HPF (Negative) 05/31/19 Unknown Urine WBC Clumps 3+ /HPF 05/31/19 Unknown Last Vital Signs Temp 98.7 F 06/04/19 19:50 Pulse 64 06/04/19 19:50 Resp 18 06/04/19 19:50 BP 137/53 06/04/19 19:50 Pulse Ox 95 06/04/19 19:50
[2019-06-05] MEDS: PROVENTIL IH PRN (17:32)
[2019-06-05] MEDS: LANTUS SUB-Q SCH (21:38)
--- NOTE | 2019-06-05 22:10 | Progress Note ---
Assessment and Plan -Acute on chronic respiratory failure with hypoxia Consultants bronchodilators, Supplemental oxygen - T2DM A1c was 8.5 Sliding scale insulin Consistent provider diet - Acute cystitis Continue with Ceftin -Malnutrition/dementia Continue supportive care. Dietary consult - Anemia of chronic disease Trend H&H Anemia woke up - Hypokalemia Supplement potassium - Anemia Of chronic disease - Hypocalcemia Bony diseases that could be Proventil resulted from deficiency Supplement calcium Disposition: Discharged from geripsychiatric unit when stable Subjective Date of service: 06/04/19 Principal diagnosis: Dementia with behavioral disturbance, T2DM, acute cyctitis Interval history: Patient is seen and examined. Sitting comfortably in the recliner. Afebrile. Objective - Exam Narrative Exam: Constitutional: Sitting comfortably in a Constanza chair. In no distress Head: Normocephalic atraumatic Eyes: Pupils are equal round and reactive to light Nose: No enlarged turbinates, no septal deviation. Mouth: Moist mucous membranes. Neck: Supple no thyromegaly. No bruit. No JVD Heart: Regular rate and rhythm, S1-S2 normal. No rubs murmurs or gallop Lungs: Clear to auscultation bilaterally. no rales or rhonchi Abdomen: Soft, nontender. Bowel sound are present. Extremities: No edema, no cyanosis, no clubbing. Neuro: Alert oriented Oriented x2. No focal sensory or motor deficit. Skin: No rashes or hyperpigmented spots Musculoskeletal system: No joint pain or swelling Hematological: No petechia or subcutanous hemorrhages. Immunological: No multiple septic spots on the skin Lymphatic: No generalized lymphadenopathy Psychiatry: Euthymic. Calm. - Constitutional Vitals: Vital Signs - 12hr 06/05/19 06/05/19 06/05/19 14:50 15:01 17:20 Temperature Pulse Rate 62 Pulse Rate [ 84 Anterior Bilateral Throughout] Respiratory Rate Respiratory 20 Rate [Anterior Bilateral Throughout] Blood Pressure 136/56 O2 Sat by Pulse 96 95 Oximetry 06/05/19 20:51 Temperature 97.8 F Pulse Rate 69 Pulse Rate [ Anterior Bilateral Throughout] Respiratory 20 Rate Respiratory Rate [Anterior Bilateral Throughout] Blood Pressure 129/51 O2 Sat by Pulse 93 Oximetry - Labs CBC & Chem 7: 06/04/19 16:08 05/27/19 13:09 Labs: Abnormal lab results 06/05/19 06/05/19 06/05/19 Range/Units 11:41 16:42 20:16 POC Glucose 168 H 132 H 183 H (70-105)
--- NOTE | 2019-06-05 22:11 | Progress Note ---
Assessment and Plan -Acute on chronic respiratory failure with hypoxia Consultants bronchodilators, Supplemental oxygen - T2DM A1c was 8.5 Sliding scale insulin Consistent provider diet - Acute cystitis Continue with Ceftin -Malnutrition/dementia Continue supportive care. Dietary consult - Anemia of chronic disease Trend H&H Anemia woke up - Hypokalemia Supplement potassium - Anemia Of chronic disease - Hypocalcemia Bony diseases that could have resulted from deficiency Supplement calcium Disposition: Discharged from geripsychiatric unit when stable Subjective Date of service: 06/05/19 Principal diagnosis: Dementia with behavioral disturbance Interval history: Patient is seen and examined. Sitting comfortably in the recliner. Afebrile. Objective - Exam Narrative Exam: Constitutional: Sitting comfortably in a Constanza chair. In no distress Head: Normocephalic atraumatic Eyes: Pupils are equal round and reactive to light Nose: No enlarged turbinates, no septal deviation. Mouth: Moist mucous membranes. Neck: Supple no thyromegaly. No bruit. No JVD Heart: Regular rate and rhythm, S1-S2 normal. No rubs murmurs or gallop Lungs: Clear to auscultation bilaterally. no rales or rhonchi Abdomen: Soft, nontender. Bowel sound are present. Extremities: No edema, no cyanosis, no clubbing. Neuro: Alert oriented Oriented x2. No focal sensory or motor deficit. Skin: No rashes or hyperpigmented spots Musculoskeletal system: No joint pain or swelling Hematological: No petechia or subcutanous hemorrhages. Immunological: No multiple septic spots on the skin Lymphatic: No generalized lymphadenopathy Psychiatry: Euthymic. Calm. - Constitutional Vitals: Vital Signs - 12hr 06/05/19 06/05/19 06/05/19 14:50 15:01 17:20 Temperature Pulse Rate 62 Pulse Rate [ 84 Anterior Bilateral Throughout] Respiratory Rate Respiratory 20 Rate [Anterior Bilateral Throughout] Blood Pressure 136/56 O2 Sat by Pulse 96 95 Oximetry 06/05/19 20:51 Temperature 97.8 F Pulse Rate 69 Pulse Rate [ Anterior Bilateral Throughout] Respiratory 20 Rate Respiratory Rate [Anterior Bilateral Throughout] Blood Pressure 129/51 O2 Sat by Pulse 93 Oximetry - Labs CBC & Chem 7: 06/04/19 16:08 05/27/19 13:09 Labs: Abnormal lab results 10/13/19 10/13/19 10/13/19 Range/Units 11:41 16:42 20:16 POC Glucose 168 H 132 H 183 H (70-105)
[2019-06-06] MEDS: HumaLOG SUB-Q SCH ×4 (08:14→22:25)
[2019-06-06] MEDS: CEFTIN PO SCH ×2 (09:43→21:44)
[2019-06-06] MEDS: CALTRATE PLUS PO SCH ×2 (09:43→21:44)
[2019-06-06] MEDS: PEPCID PO SCH (09:43)
[2019-06-06] MEDS: LANTUS SUB-Q SCH (22:21)
--- NOTE | 2019-06-06 22:43 | Progress Note ---
Assessment and Plan -Acute on chronic respiratory failure with hypoxia Continue bronchodilators, Supplemental oxygen - T2DM A1c was 8.5 Sliding scale insulin Consistent provider diet - Acute cystitis from E. faecalis Continue with Ceftin -Malnutrition/dementia Continue supportive care. Dietary consult - Anemia of chronic disease Trend H&H Anemia woke up - Hypokalemia Supplement potassium Recheck - Hypocalcemia Bony diseases that could have resulted from deficiency Supplement calcium Disposition: Discharged from geripsychiatric unit when stable per psychiatrist Subjective Date of service: 06/06/19 Principal diagnosis: Dementia with behavioral disturbance Interval history: Patient is seen and examined. Sitting comfortably in the gerichair. Afebrile. Objective - Exam Narrative Exam: Constitutional: Sitting comfortably in a Constanza chair. In no distress Head: Normocephalic atraumatic Eyes: Pupils are equal round and reactive to light Nose: No enlarged turbinates, no septal deviation. Mouth: Moist mucous membranes. Neck: Supple no thyromegaly. No bruit. No JVD Heart: Regular rate and rhythm, S1-S2 normal. No rubs murmurs or gallop Lungs: Clear to auscultation bilaterally. no rales or rhonchi Abdomen: Soft, nontender. Bowel sound are present. Extremities: No edema, no cyanosis, no clubbing. Neuro: Alert oriented Oriented x2. No focal sensory or motor deficit. Skin: No rashes or hyperpigmented spots Musculoskeletal system: No joint pain or swelling Hematological: No petechia or subcutanous hemorrhages. Immunological: No multiple septic spots on the skin Lymphatic: No generalized lymphadenopathy Psychiatry: Euthymic. Calm. - Constitutional Vitals: Vital Signs - 12hr 06/06/19 19:39 Temperature 98.8 F Pulse Rate 56 L Respiratory 20 Rate Blood Pressure 131/57 O2 Sat by Pulse 97 Oximetry - Labs CBC & Chem 7: 06/04/19 16:08 05/27/19 13:09 Labs: Abnormal lab results 06/06/19 06/06/19 06/06/19 Range/Units 12:23 16:37 19:37 POC Glucose 159 H 164 H 180 H (70-105)
[2019-06-06] MEDS: PROVENTIL IH PRN (23:48)
[2019-06-07] MEDS: HumaLOG SUB-Q SCH ×4 (07:19→21:23)
[2019-06-07] MEDS: PROVENTIL IH PRN ×2 (08:06→20:50)
[2019-06-07] MEDS: PEPCID PO SCH (09:25)
[2019-06-07] MEDS: CEFTIN PO SCH ×2 (09:25→21:19)
[2019-06-07] MEDS: CALTRATE PLUS PO SCH ×2 (09:25→22:00)
--- NOTE | 2019-06-07 15:05 | Progress Note ---
Subjective Date of service: 06/06/19 Principal diagnosis: Dementia with behavioral disturbance Subjective Comment: The patient is alert but confused. No behavioral concerns. Awaiting placement. 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 Patient will be enrolled in individual and group therapeutic sessions and encouraged to attend. Patient will be provided with a safe and structured environment. Patient's physical health needs will be addressed by the Hospitalist. Social Assessment will be completed and the Edge Beader will work with patient and family to ensure a suitable and safe disposition Medication adjustment will be made as clinically indicated Medications and Allergies Allergies Allergy/AdvReac Type Severity Reaction Status Date / Time codeine Allergy Mild Unknown Verified 05/15/19 22:13 enoxaparin [From Lovenox] Allergy Mild Unknown Verified 05/15/19 22:13 Home Medications Medication Instructions Recorded Confirmed Last Taken Type LORazepam 1 mg PO Q6H PRN 05/15/19 05/15/19 05/14/19 22:00 History 1 mg LORazepam [Ativan] 1 mg PO QHS 05/15/19 05/15/19 05/14/19 22:00 History 1 mg Insulin Glargine [Lantus] 18 unit SUB-Q BID 05/16/19 05/16/19 Unknown History Active Meds: Active Medications Albuterol (Proventil) 2.5 mg IH Q4HRT PRN PRN Reason: Shortness Of Breath Last Admin: 06/07/19 08:06 Dose: 2.5 mg Documented by: Cefuroxime Axetil (Ceftin) 500 mg PO Q12HR [facility] Last Admin: 06/07/19 09:25 Dose: 500 mg Documented by: Dextrose (D50w (25gm) Syringe) 50 ml IV PRN PRN PRN Reason: Hypoglycemia Famotidine (Pepcid) 20 mg PO QDAY [facility] Last Admin: 06/07/19 09:25 Dose: 20 mg Documented by: Insulin Glargine (Lantus) 18 units SUB-Q QHS [facility] Last Admin: 06/06/19 22:21 Dose: 18 units Documented by: Insulin Human Lispro (Humalog) 0 unit SUB-Q ACHS [facility]; Protocol Last Admin: 06/07/19 12:29 Dose: 2 unit Documented by: Multivitamins/Minerals (Caltrate Plus) 1 each PO BID [facility] Last Admin: 06/07/19 09:25 Dose: 1 each Documented by: Results - Results Labs/Vitals: Laboratory Last Values WBC 6.9 K/mm3 (4.5-11.0) 06/04/19 16:08 RBC 3.21 M/mm3 (3.65-5.03) L 06/04/19 16:08 Hgb 9.6 gm/dl (10.1-14.3) L 06/04/19 16:08 Hct 29.9 % (30.3-42.9) L 06/04/19 16:08 MCV 93 fl (79-97) 06/04/19 16:08 MCH 30 pg (28-32) 06/04/19 16:08 MCHC 32 % (30-34) 06/04/19 16:08 RDW 15.0 % (13.2-15.2) 06/04/19 16:08 Plt Count 219 K/mm3 (140-440) 06/04/19 16:08 Lymph % (Auto) 21.1 % (13.4-35.0) 06/04/19 16:08 [place] % (Auto) 7.4 % (0.0-7.3) H 06/04/19 16:08 Eos % (Auto) 1.6 % (0.0-4.3) 06/04/19 16:08 Baso % (Auto) 0.6 % (0.0-1.8) 06/04/19 16:08 Lymph # 1.5 K/mm3 (1.2-5.4) 06/04/19 16:08 [place] # 0.5 K/mm3 (0.0-0.8) 06/04/19 16:08 Eos # 0.1 K/mm3 (0.0-0.4) 06/04/19 16:08 Baso # 0.0 K/mm3 (0.0-0.1) 06/04/19 16:08 Seg Neutrophils % 69.3 % (40.0-70.0) 06/04/19 16:08 Seg Neutrophils # 4.8 K/mm3 (1.8-7.7) 06/04/19 16:08 POC ABG pH 7.388 (7.35-7.45) 05/17/19 17:58 POC ABG pCO2 52.4 (35-45) H 05/17/19 17:58 POC ABG pO2 70 (80-105) L 05/17/19 17:58 POC ABG HCO3 31.6 (22-26 mml/L) 05/17/19 17:58 POC ABG Total CO2 33 (23-27mmol/L) 05/17/19 17:58 POC ABG O2 Sat 93 05/17/19 17:58 POC ABG Base Excess 7 ((-2) - (+3)mmol/L) 05/17/19 17:58 FiO2 28 % 05/17/19 17:58 Sodium 135 mmol/L (137-145) L 05/27/19 13:09 Potassium 5.3 mmol/L (3.6-5.0) H 05/27/19 13:09 Chloride 97.0 mmol/L (98-107) L 05/27/19 13:09 Carbon Dioxide 27 mmol/L (22-30) 05/27/19 13:09 Anion Gap 16 mmol/L 05/27/19 13:09 BUN 47 mg/dL (7-17) H 05/27/19 13:09 Creatinine 1.3 mg/dL (0.7-1.2) H 05/27/19 13:09 Estimated GFR 39 ml/min 05/27/19 13:09 BUN/Creatinine Ratio 36 % 05/27/19 13:09 Glucose 159 mg/dL (65-100) H 05/27/19 13:09 POC Glucose 194 (70-105) H 06/07/19 11:18 Hemoglobin A1c 8.5 % (4-6) H 05/16/19 07:10 Calcium 8.2 mg/dL (8.4-10.2) L 05/27/19 13:09 Total Bilirubin 0.30 mg/dL (0.1-1.2) 05/27/19 13:09 AST 24 units/L (5-40) 05/27/19 13:09 ALT 11 units/L (7-56) 05/27/19 13:09 Alkaline Phosphatase 125 units/L (35-129) 05/27/19 13:09 Total Protein 7.4 g/dL (6.3-8.2) 05/27/19 13:09 Albumin 2.7 g/dL (3.9-5) L 05/27/19 13:09 Albumin/Globulin Ratio 0.6 % 05/27/19 13:09 Triglycerides 113 mg/dL (2-149) 05/16/19 07:10 Cholesterol 111 mg/dL (50-199) 05/16/19 07:10 LDL Cholesterol Direct 63 mg/dL (50-130) 05/16/19 07:10 HDL Cholesterol 26 mg/dL (40-59) L 05/16/19 07:10 Cholesterol/HDL Ratio 4.26 % 05/16/19 07:10 Urine Color Yellow (Yellow) 05/31/19 Unknown Urine Turbidity Cloudy (Clear) 05/31/19 Unknown Urine pH 5.0 (5.0-7.0) 05/31/19 Unknown Ur Specific [place] 1.012 (1.003-1.030) 05/31/19 Unknown Urine Protein <15 mg/dl mg/dL (Negative) 05/31/19 Unknown Urine Glucose (UA) Neg mg/dL (Negative) 05/31/19 Unknown Urine Ketones Neg mg/dL (Negative) 05/31/19 Unknown Urine Blood Sm (Negative) 05/31/19 Unknown Urine Nitrite Neg (Negative) 05/31/19 Unknown Urine Bilirubin Neg (Negative) 05/31/19 Unknown Urine Urobilinogen < 2.0 mg/dL (<2.0) 05/31/19 Unknown Ur Leukocyte Esterase Lg (Negative) 05/31/19 Unknown Urine WBC (Auto) > 182.0 /HPF (0.0-6.0) H 05/31/19 Unknown Urine RBC (Auto) 9.0 /HPF (0.0-6.0) 05/31/19 Unknown U Epithel Cells (Auto) 3.0 /HPF (0-13.0) 05/31/19 Unknown Urine Bacteria (Auto) 2+ /HPF (Negative) 05/31/19 Unknown Urine WBC Clumps 3+ /HPF 05/31/19 Unknown Last Vital Signs Temp 98.8 F 06/06/19 19:39 Pulse 58 L 06/07/19 08:06 Resp 16 06/07/19 08:06 BP 131/57 06/06/19 19:39 Pulse Ox 93 06/07/19 08:02
--- NOTE | 2019-06-07 15:06 | Progress Note ---
Subjective Date of service: 06/07/19 Principal diagnosis: Dementia with behavioral disturbance Subjective Comment: The patient is alert but confused. No behavioral concerns. Awaiting placement. 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 Patient will be enrolled in individual and group therapeutic sessions and encouraged to attend. Patient will be provided with a safe and structured environment. Patient's physical health needs will be addressed by the Hospitalist. Social Assessment will be completed and the Help Desk Supervisor will work with patient and family to ensure a suitable and safe disposition Medication adjustment will be made as clinically indicated Medications and Allergies Allergies Allergy/AdvReac Type Severity Reaction Status Date / Time codeine Allergy Mild Unknown Verified 05/15/19 22:13 enoxaparin [From Lovenox] Allergy Mild Unknown Verified 05/15/19 22:13 Home Medications Medication Instructions Recorded Confirmed Last Taken Type LORazepam 1 mg PO Q6H PRN 05/15/19 05/15/19 05/14/19 22:00 History 1 mg LORazepam [Ativan] 1 mg PO QHS 05/15/19 05/15/19 05/14/19 22:00 History 1 mg Insulin Glargine [Lantus] 18 unit SUB-Q BID 05/16/19 05/16/19 Unknown History Active Meds: Active Medications Albuterol (Proventil) 2.5 mg IH Q4HRT PRN PRN Reason: Shortness Of Breath Last Admin: 06/07/19 08:06 Dose: 2.5 mg Documented by: Cefuroxime Axetil (Ceftin) 500 mg PO Q12HR [facility] Last Admin: 06/07/19 09:25 Dose: 500 mg Documented by: Dextrose (D50w (25gm) Syringe) 50 ml IV PRN PRN PRN Reason: Hypoglycemia Famotidine (Pepcid) 20 mg PO QDAY [facility] Last Admin: 06/07/19 09:25 Dose: 20 mg Documented by: Insulin Glargine (Lantus) 18 units SUB-Q QHS [facility] Last Admin: 06/06/19 22:21 Dose: 18 units Documented by: Insulin Human Lispro (Humalog) 0 unit SUB-Q ACHS [facility]; Protocol Last Admin: 06/07/19 12:29 Dose: 2 unit Documented by: Multivitamins/Minerals (Caltrate Plus) 1 each PO BID [facility] Last Admin: 06/07/19 09:25 Dose: 1 each Documented by: Results - Results Labs/Vitals: Laboratory Last Values WBC 6.9 K/mm3 (4.5-11.0) 06/04/19 16:08 RBC 3.21 M/mm3 (3.65-5.03) L 06/04/19 16:08 Hgb 9.6 gm/dl (10.1-14.3) L 06/04/19 16:08 Hct 29.9 % (30.3-42.9) L 06/04/19 16:08 MCV 93 fl (79-97) 06/04/19 16:08 MCH 30 pg (28-32) 06/04/19 16:08 MCHC 32 % (30-34) 06/04/19 16:08 RDW 15.0 % (13.2-15.2) 06/04/19 16:08 Plt Count 219 K/mm3 (140-440) 06/04/19 16:08 Lymph % (Auto) 21.1 % (13.4-35.0) 06/04/19 16:08 [place] % (Auto) 7.4 % (0.0-7.3) H 06/04/19 16:08 Eos % (Auto) 1.6 % (0.0-4.3) 06/04/19 16:08 Baso % (Auto) 0.6 % (0.0-1.8) 06/04/19 16:08 Lymph # 1.5 K/mm3 (1.2-5.4) 06/04/19 16:08 [place] # 0.5 K/mm3 (0.0-0.8) 06/04/19 16:08 Eos # 0.1 K/mm3 (0.0-0.4) 06/04/19 16:08 Baso # 0.0 K/mm3 (0.0-0.1) 06/04/19 16:08 Seg Neutrophils % 69.3 % (40.0-70.0) 06/04/19 16:08 Seg Neutrophils # 4.8 K/mm3 (1.8-7.7) 06/04/19 16:08 POC ABG pH 7.388 (7.35-7.45) 05/17/19 17:58 POC ABG pCO2 52.4 (35-45) H 05/17/19 17:58 POC ABG pO2 70 (80-105) L 05/17/19 17:58 POC ABG HCO3 31.6 (22-26 mml/L) 05/17/19 17:58 POC ABG Total CO2 33 (23-27mmol/L) 05/17/19 17:58 POC ABG O2 Sat 93 05/17/19 17:58 POC ABG Base Excess 7 ((-2) - (+3)mmol/L) 05/17/19 17:58 FiO2 28 % 05/17/19 17:58 Sodium 135 mmol/L (137-145) L 05/27/19 13:09 Potassium 5.3 mmol/L (3.6-5.0) H 05/27/19 13:09 Chloride 97.0 mmol/L (98-107) L 05/27/19 13:09 Carbon Dioxide 27 mmol/L (22-30) 05/27/19 13:09 Anion Gap 16 mmol/L 05/27/19 13:09 BUN 47 mg/dL (7-17) H 05/27/19 13:09 Creatinine 1.3 mg/dL (0.7-1.2) H 05/27/19 13:09 Estimated GFR 39 ml/min 05/27/19 13:09 BUN/Creatinine Ratio 36 % 05/27/19 13:09 Glucose 159 mg/dL (65-100) H 05/27/19 13:09 POC Glucose 194 (70-105) H 06/07/19 11:18 Hemoglobin A1c 8.5 % (4-6) H 05/16/19 07:10 Calcium 8.2 mg/dL (8.4-10.2) L 05/27/19 13:09 Total Bilirubin 0.30 mg/dL (0.1-1.2) 05/27/19 13:09 AST 24 units/L (5-40) 05/27/19 13:09 ALT 11 units/L (7-56) 05/27/19 13:09 Alkaline Phosphatase 125 units/L (35-129) 05/27/19 13:09 Total Protein 7.4 g/dL (6.3-8.2) 05/27/19 13:09 Albumin 2.7 g/dL (3.9-5) L 05/27/19 13:09 Albumin/Globulin Ratio 0.6 % 05/27/19 13:09 Triglycerides 113 mg/dL (2-149) 05/16/19 07:10 Cholesterol 111 mg/dL (50-199) 05/16/19 07:10 LDL Cholesterol Direct 63 mg/dL (50-130) 05/16/19 07:10 HDL Cholesterol 26 mg/dL (40-59) L 05/16/19 07:10 Cholesterol/HDL Ratio 4.26 % 05/16/19 07:10 Urine Color Yellow (Yellow) 05/31/19 Unknown Urine Turbidity Cloudy (Clear) 05/31/19 Unknown Urine pH 5.0 (5.0-7.0) 05/31/19 Unknown Ur Specific [place] 1.012 (1.003-1.030) 05/31/19 Unknown Urine Protein <15 mg/dl mg/dL (Negative) 05/31/19 Unknown Urine Glucose (UA) Neg mg/dL (Negative) 05/31/19 Unknown Urine Ketones Neg mg/dL (Negative) 05/31/19 Unknown Urine Blood Sm (Negative) 05/31/19 Unknown Urine Nitrite Neg (Negative) 05/31/19 Unknown Urine Bilirubin Neg (Negative) 05/31/19 Unknown Urine Urobilinogen < 2.0 mg/dL (<2.0) 05/31/19 Unknown Ur Leukocyte Esterase Lg (Negative) 05/31/19 Unknown Urine WBC (Auto) > 182.0 /HPF (0.0-6.0) H 05/31/19 Unknown Urine RBC (Auto) 9.0 /HPF (0.0-6.0) 05/31/19 Unknown U Epithel Cells (Auto) 3.0 /HPF (0-13.0) 05/31/19 Unknown Urine Bacteria (Auto) 2+ /HPF (Negative) 05/31/19 Unknown Urine WBC Clumps 3+ /HPF 05/31/19 Unknown Last Vital Signs Temp 98.8 F 06/06/19 19:39 Pulse 58 L 06/07/19 08:06 Resp 16 06/07/19 08:06 BP 131/57 06/06/19 19:39 Pulse Ox 93 06/07/19 08:02
[2019-06-07] MEDS: LANTUS SUB-Q SCH (21:19)
--- NOTE | 2019-06-08 07:33 | Progress Note ---
Subjective Date of service: 06/08/19 Principal diagnosis: Dementia with behavioral disturbance Subjective Comment: Patient reports feeling ok this morning. Per nursing note patient is alert but confused. No behavioral concerns. Pt is complaint with medications and reports no new concerns. Pt a/o x 2 mood and affect pleasant. Appetite is good. Pt needs assistance to complete adls and is able to stand and pivot. Pt had a good night; slept for 6 hrs. No complaint of pain. MSE Orientation: place Affect: normal Mood: calm Thought Process: Disorganized, Disoriented Perceptions: none Speech: paucity Motor activity: lethargic Level of consciousness: confused Memory: Recent Impaired, Remote Impaired Interaction: cooperative Objective - Criteria for Continued Treatment Criteria for Continued Treatment: Improving Level of Functioning, Stablizing Level of Functioning, Improving Emotional/Socia - Objective Observation Participation Level: Moderate Assessment and Plan - Patient Problems (1) Major neurocognitive disorder due to Alzheimer's disease, with behavioral disturbance Current Visit: Yes Status: Acute Plan to address problem: Patient will be admitted for inpatient psychiatric evaluation, medication adjustment and close monitoring The patient's behavior, mood, sleep and appetite will be closely monitored. Patient will be enrolled in individual and group therapeutic sessions and encouraged to attend. Patient will be provided with a safe and structured environment. Patient's physical health needs will be addressed by the Hospitalist. Social Assessment will be completed and the Recreational Vehicle Resort Manager will work with patient and family to ensure a suitable and safe disposition Medication adjustment will be made as clinically indicated Medications and Allergies Allergies Allergy/AdvReac Type Severity Reaction Status Date / Time codeine Allergy Mild Unknown Verified 05/15/19 22:13 enoxaparin [From Lovenox] Allergy Mild Unknown Verified 05/15/19 22:13 Home Medications Medication Instructions Recorded Confirmed Last Taken Type LORazepam 1 mg PO Q6H PRN 05/15/19 05/15/19 05/14/19 22:00 History 1 mg LORazepam [Ativan] 1 mg PO QHS 05/15/19 05/15/19 05/14/19 22:00 History 1 mg Insulin Glargine [Lantus] 18 unit SUB-Q BID 05/16/19 05/16/19 Unknown History Active Meds: Active Medications Albuterol (Proventil) 2.5 mg IH Q4HRT PRN PRN Reason: Shortness Of Breath Last Admin: 06/07/19 20:50 Dose: 2.5 mg Documented by: Cefuroxime Axetil (Ceftin) 500 mg PO Q12HR [facility] Last Admin: 06/07/19 21:19 Dose: 500 mg Documented by: Dextrose (D50w (25gm) Syringe) 50 ml IV PRN PRN PRN Reason: Hypoglycemia Famotidine (Pepcid) 20 mg PO QDAY [facility] Last Admin: 06/07/19 09:25 Dose: 20 mg Documented by: Insulin Glargine (Lantus) 18 units SUB-Q QHS [facility] Last Admin: 06/07/19 21:19 Dose: 18 units Documented by: Insulin Human Lispro (Humalog) 0 unit SUB-Q ACHS [facility]; Protocol Last Admin: 06/07/19 21:23 Dose: 2 unit Documented by: Multivitamins/Minerals (Caltrate Plus) 1 each PO BID [facility] Last Admin: 06/07/19 22:00 Dose: 1 each Documented by: Results - Results Labs/Vitals: Laboratory Last Values WBC 6.9 K/mm3 (4.5-11.0) 06/04/19 16:08 RBC 3.21 M/mm3 (3.65-5.03) L 06/04/19 16:08 Hgb 9.6 gm/dl (10.1-14.3) L 06/04/19 16:08 Hct 29.9 % (30.3-42.9) L 06/04/19 16:08 MCV 93 fl (79-97) 06/04/19 16:08 MCH 30 pg (28-32) 06/04/19 16:08 MCHC 32 % (30-34) 06/04/19 16:08 RDW 15.0 % (13.2-15.2) 06/04/19 16:08 Plt Count 219 K/mm3 (140-440) 06/04/19 16:08 Lymph % (Auto) 21.1 % (13.4-35.0) 06/04/19 16:08 [place] % (Auto) 7.4 % (0.0-7.3) H 06/04/19 16:08 Eos % (Auto) 1.6 % (0.0-4.3) 06/04/19 16:08 Baso % (Auto) 0.6 % (0.0-1.8) 06/04/19 16:08 Lymph # 1.5 K/mm3 (1.2-5.4) 06/04/19 16:08 [place] # 0.5 K/mm3 (0.0-0.8) 06/04/19 16:08 Eos # 0.1 K/mm3 (0.0-0.4) 06/04/19 16:08 Baso # 0.0 K/mm3 (0.0-0.1) 06/04/19 16:08 Seg Neutrophils % 69.3 % (40.0-70.0) 06/04/19 16:08 Seg Neutrophils # 4.8 K/mm3 (1.8-7.7) 06/04/19 16:08 POC ABG pH 7.388 (7.35-7.45) 05/17/19 17:58 POC ABG pCO2 52.4 (35-45) H 05/17/19 17:58 POC ABG pO2 70 (80-105) L 05/17/19 17:58 POC ABG HCO3 31.6 (22-26 mml/L) 05/17/19 17:58 POC ABG Total CO2 33 (23-27mmol/L) 05/17/19 17:58 POC ABG O2 Sat 93 05/17/19 17:58 POC ABG Base Excess 7 ((-2) - (+3)mmol/L) 05/17/19 17:58 FiO2 28 % 05/17/19 17:58 Sodium 135 mmol/L (137-145) L 05/27/19 13:09 Potassium 5.3 mmol/L (3.6-5.0) H 05/27/19 13:09 Chloride 97.0 mmol/L (98-107) L 05/27/19 13:09 Carbon Dioxide 27 mmol/L (22-30) 05/27/19 13:09 Anion Gap 16 mmol/L 05/27/19 13:09 BUN 47 mg/dL (7-17) H 05/27/19 13:09 Creatinine 1.3 mg/dL (0.7-1.2) H 05/27/19 13:09 Estimated GFR 39 ml/min 05/27/19 13:09 BUN/Creatinine Ratio 36 % 05/27/19 13:09 Glucose 159 mg/dL (65-100) H 05/27/19 13:09 POC Glucose 154 (70-105) H 06/07/19 20:00 Hemoglobin A1c 8.5 % (4-6) H 05/16/19 07:10 Calcium 8.2 mg/dL (8.4-10.2) L 05/27/19 13:09 Total Bilirubin 0.30 mg/dL (0.1-1.2) 05/27/19 13:09 AST 24 units/L (5-40) 05/27/19 13:09 ALT 11 units/L (7-56) 05/27/19 13:09 Alkaline Phosphatase 125 units/L (35-129) 05/27/19 13:09 Total Protein 7.4 g/dL (6.3-8.2) 05/27/19 13:09 Albumin 2.7 g/dL (3.9-5) L 05/27/19 13:09 Albumin/Globulin Ratio 0.6 % 05/27/19 13:09 Triglycerides 113 mg/dL (2-149) 05/16/19 07:10 Cholesterol 111 mg/dL (50-199) 05/16/19 07:10 LDL Cholesterol Direct 63 mg/dL (50-130) 05/16/19 07:10 HDL Cholesterol 26 mg/dL (40-59) L 05/16/19 07:10 Cholesterol/HDL Ratio 4.26 % 05/16/19 07:10 Urine Color Yellow (Yellow) 05/31/19 Unknown Urine Turbidity Cloudy (Clear) 05/31/19 Unknown Urine pH 5.0 (5.0-7.0) 05/31/19 Unknown Ur Specific [place] 1.012 (1.003-1.030) 05/31/19 Unknown Urine Protein <15 mg/dl mg/dL (Negative) 05/31/19 Unknown Urine Glucose (UA) Neg mg/dL (Negative) 05/31/19 Unknown Urine Ketones Neg mg/dL (Negative) 05/31/19 Unknown Urine Blood Sm (Negative) 05/31/19 Unknown Urine Nitrite Neg (Negative) 05/31/19 Unknown Urine Bilirubin Neg (Negative) 05/31/19 Unknown Urine Urobilinogen < 2.0 mg/dL (<2.0) 05/31/19 Unknown Ur Leukocyte Esterase Lg (Negative) 05/31/19 Unknown Urine WBC (Auto) > 182.0 /HPF (0.0-6.0) H 05/31/19 Unknown Urine RBC (Auto) 9.0 /HPF (0.0-6.0) 05/31/19 Unknown U Epithel Cells (Auto) 3.0 /HPF (0-13.0) 05/31/19 Unknown Urine Bacteria (Auto) 2+ /HPF (Negative) 05/31/19 Unknown Urine WBC Clumps 3+ /HPF 05/31/19 Unknown Last Vital Signs Temp 97.5 F L 06/07/19 19:33 Pulse 67 06/07/19 20:50 Resp 18 06/07/19 20:50 BP 134/49 06/07/19 19:33 Pulse Ox 93 06/07/19 20:40
[2019-06-08] MEDS: HumaLOG SUB-Q SCH ×4 (09:17→21:45)
[2019-06-08] MEDS: PEPCID PO SCH (09:17)
[2019-06-08] MEDS: CEFTIN PO SCH ×2 (09:17→21:44)
[2019-06-08] MEDS: CALTRATE PLUS PO SCH ×2 (09:17→21:44)
[2019-06-08] MEDS: LANTUS SUB-Q SCH (21:19)
--- NOTE | 2019-06-09 07:47 | Progress Note ---
Subjective Date of service: 06/09/19 Principal diagnosis: Dementia with behavioral disturbance Subjective Comment: Patient reports feeling ok this morning. Per nursing Pt is medication compliant, calm and cooperative, no agitation, able to make needs known, appetite is fair, fall precaution, pt is total care, pt presents as sleeping for 8hr, vital signs stable, and monitored by staff. Nurse also reports that pt is declining and constantly sleeping. 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 Patient will be enrolled in individual and group therapeutic sessions and encouraged to attend. Patient will be provided with a safe and structured environment. Patient's physical health needs will be addressed by the Hospitalist. Social Assessment will be completed and the [employer] will work with patient and family to ensure a suitable and safe disposition Medication adjustment will be made as clinically indicated Medications and Allergies Allergies Allergy/AdvReac Type Severity Reaction Status Date / Time codeine Allergy Mild Unknown Verified 05/15/19 22:13 enoxaparin [From Lovenox] Allergy Mild Unknown Verified 05/15/19 22:13 Home Medications Medication Instructions Recorded Confirmed Last Taken Type Insulin Glargine [Lantus VIAL] 18 unit SUB-Q BID 05/16/19 05/16/19 Unknown History ALBUTEROL NEB's [Proventil 0.083% 2.5 mg IH Q4HRT PRN #30 nebu 06/09/19 Unknown Rx NEBS] Calcium Carb/Vit D3/Minerals 1 each PO BID #60 tablet 06/09/19 Unknown Rx [Caltrate Plus] Famotidine [Pepcid] 20 mg PO QDAY #30 tablet 06/09/19 Unknown Rx Active Meds: Active Medications Albuterol (Proventil) 2.5 mg IH Q4HRT PRN PRN Reason: Shortness Of Breath Last Admin: 06/07/19 20:50 Dose: 2.5 mg Documented by: Cefuroxime Axetil (Ceftin) 500 mg PO Q12HR [facility] Last Admin: 06/08/19 21:44 Dose: 500 mg Documented by: Dextrose (D50w (25gm) Syringe) 50 ml IV PRN PRN PRN Reason: Hypoglycemia Famotidine (Pepcid) 20 mg PO QDAY [facility] Last Admin: 06/08/19 09:17 Dose: 20 mg Documented by: Insulin Glargine (Lantus) 18 units SUB-Q QHS [facility] Last Admin: 06/08/19 21:19 Dose: 18 units Documented by: Insulin Human Lispro (Humalog) 0 unit SUB-Q ACHS [facility]; Protocol Last Admin: 06/08/19 21:45 Dose: Not Given Documented by: Multivitamins/Minerals (Caltrate Plus) 1 each PO BID [facility] Last Admin: 06/08/19 21:44 Dose: 1 each Documented by: Results - Results Labs/Vitals: Laboratory Last Values WBC 6.9 K/mm3 (4.5-11.0) 06/04/19 16:08 RBC 3.21 M/mm3 (3.65-5.03) L 06/04/19 16:08 Hgb 9.6 gm/dl (10.1-14.3) L 06/04/19 16:08 Hct 29.9 % (30.3-42.9) L 06/04/19 16:08 MCV 93 fl (79-97) 06/04/19 16:08 MCH 30 pg (28-32) 06/04/19 16:08 MCHC 32 % (30-34) 06/04/19 16:08 RDW 15.0 % (13.2-15.2) 06/04/19 16:08 Plt Count 219 K/mm3 (140-440) 06/04/19 16:08 Lymph % (Auto) 21.1 % (13.4-35.0) 06/04/19 16:08 [place] % (Auto) 7.4 % (0.0-7.3) H 06/04/19 16:08 Eos % (Auto) 1.6 % (0.0-4.3) 06/04/19 16:08 Baso % (Auto) 0.6 % (0.0-1.8) 06/04/19 16:08 Lymph # 1.5 K/mm3 (1.2-5.4) 06/04/19 16:08 [place] # 0.5 K/mm3 (0.0-0.8) 06/04/19 16:08 Eos # 0.1 K/mm3 (0.0-0.4) 06/04/19 16:08 Baso # 0.0 K/mm3 (0.0-0.1) 06/04/19 16:08 Seg Neutrophils % 69.3 % (40.0-70.0) 06/04/19 16:08 Seg Neutrophils # 4.8 K/mm3 (1.8-7.7) 06/04/19 16:08 POC ABG pH 7.388 (7.35-7.45) 05/17/19 17:58 POC ABG pCO2 52.4 (35-45) H 05/17/19 17:58 POC ABG pO2 70 (80-105) L 05/17/19 17:58 POC ABG HCO3 31.6 (22-26 mml/L) 05/17/19 17:58 POC ABG Total CO2 33 (23-27mmol/L) 05/17/19 17:58 POC ABG O2 Sat 93 05/17/19 17:58 POC ABG Base Excess 7 ((-2) - (+3)mmol/L) 05/17/19 17:58 FiO2 28 % 05/17/19 17:58 Sodium 135 mmol/L (137-145) L 05/27/19 13:09 Potassium 5.3 mmol/L (3.6-5.0) H 05/27/19 13:09 Chloride 97.0 mmol/L (98-107) L 05/27/19 13:09 Carbon Dioxide 27 mmol/L (22-30) 05/27/19 13:09 Anion Gap 16 mmol/L 05/27/19 13:09 BUN 47 mg/dL (7-17) H 05/27/19 13:09 Creatinine 1.3 mg/dL (0.7-1.2) H 05/27/19 13:09 Estimated GFR 39 ml/min 05/27/19 13:09 BUN/Creatinine Ratio 36 % 05/27/19 13:09 Glucose 159 mg/dL (65-100) H 05/27/19 13:09 POC Glucose 193 (70-105) H 06/09/19 06:33 Hemoglobin A1c 8.5 % (4-6) H 05/16/19 07:10 Calcium 8.2 mg/dL (8.4-10.2) L 05/27/19 13:09 Total Bilirubin 0.30 mg/dL (0.1-1.2) 05/27/19 13:09 AST 24 units/L (5-40) 05/27/19 13:09 ALT 11 units/L (7-56) 05/27/19 13:09 Alkaline Phosphatase 125 units/L (35-129) 05/27/19 13:09 Total Protein 7.4 g/dL (6.3-8.2) 05/27/19 13:09 Albumin 2.7 g/dL (3.9-5) L 05/27/19 13:09 Albumin/Globulin Ratio 0.6 % 05/27/19 13:09 Triglycerides 113 mg/dL (2-149) 05/16/19 07:10 Cholesterol 111 mg/dL (50-199) 05/16/19 07:10 LDL Cholesterol Direct 63 mg/dL (50-130) 05/16/19 07:10 HDL Cholesterol 26 mg/dL (40-59) L 05/16/19 07:10 Cholesterol/HDL Ratio 4.26 % 05/16/19 07:10 Urine Color Yellow (Yellow) 05/31/19 Unknown Urine Turbidity Cloudy (Clear) 05/31/19 Unknown Urine pH 5.0 (5.0-7.0) 05/31/19 Unknown Ur Specific [place] 1.012 (1.003-1.030) 05/31/19 Unknown Urine Protein <15 mg/dl mg/dL (Negative) 05/31/19 Unknown Urine Glucose (UA) Neg mg/dL (Negative) 05/31/19 Unknown Urine Ketones Neg mg/dL (Negative) 05/31/19 Unknown Urine Blood Sm (Negative) 05/31/19 Unknown Urine Nitrite Neg (Negative) 05/31/19 Unknown Urine Bilirubin Neg (Negative) 05/31/19 Unknown Urine Urobilinogen < 2.0 mg/dL (<2.0) 05/31/19 Unknown Ur Leukocyte Esterase Lg (Negative) 05/31/19 Unknown Urine WBC (Auto) > 182.0 /HPF (0.0-6.0) H 05/31/19 Unknown Urine RBC (Auto) 9.0 /HPF (0.0-6.0) 05/31/19 Unknown U Epithel Cells (Auto) 3.0 /HPF (0-13.0) 05/31/19 Unknown Urine Bacteria (Auto) 2+ /HPF (Negative) 05/31/19 Unknown Urine WBC Clumps 3+ /HPF 05/31/19 Unknown Last Vital Signs Temp 98.1 F 06/08/19 19:43 Pulse 53 L 06/08/19 19:43 Resp 20 06/08/19 19:43 BP 123/51 06/08/19 19:43 Pulse Ox 97 06/08/19 19:43
[2019-06-09] MEDS: HumaLOG SUB-Q SCH ×4 (09:58→22:00)
[2019-06-09] MEDS: CEFTIN PO SCH ×2 (10:00→21:18)
[2019-06-09] MEDS: PEPCID PO SCH (10:05)
--- NOTE | 2019-06-09 11:59 | Discharge Summary ---
Providers - Providers Date of Admission: 05/15/19 09:42 Date of discharge: 06/09/19 Attending physician: JARROD MICHELE MD 05/17/19 08:25 Consult to Dietitian/Nutrition [CONS] Routine Physician Instructions: Reason For Exam: Albumin 2.6 Reason for Consult: Nutrition Recommendations Reason for Consult: Malnutrition 05/18/19 11:27 Consult to Physician [CONS] Routine Comment: Consulting Provider: HUSSEIN CLEMONS Physician Instructions: Reason For Exam: [facility] Hospitalization Reason for admission: Danger to self, Danger to others, Unable to care for self Condition: Stable Hospital course: The patient was provided inpatient psychiatric treatment with safe and supportive environment, group therapy, individual counseling, psychiatric medication, medication adjustment, adverse effect monitor, medical evaluation, medical treatment, social service assessment, family/social support meeting, placement assessment and psycho-education. The patients mood, anxiety, thoughts, stress management skill, cognition, impulse/anger control, motivation, understanding of disease, compliance to treatment and appreciation on family/social support are improved and stabilized. At the time of discharge, the patient had no suicidal ideas, no homicidal ideas, no aggressive thoughts, no endangering behavior and no debilitating adverse effects. Disposition: DC/[place]-03 [facility] Allergies/Adverse Reactions: Allergies codeine Allergy (Mild, Verified 05/15/19 22:13) Unknown enoxaparin [From Lovenox] Allergy (Mild, Verified 05/15/19 22:13) Unknown Vital Signs: Last Vital Signs Temp 98.1 F 06/08/19 19:43 Pulse 53 L 06/08/19 19:43 Resp 20 06/08/19 19:43 BP 123/51 06/08/19 19:43 Pulse Ox 97 06/08/19 19:43 Last Lab: Laboratory Last Values WBC 6.9 K/mm3 (4.5-11.0) 06/04/19 16:08 RBC 3.21 M/mm3 (3.65-5.03) L 06/04/19 16:08 Hgb 9.6 gm/dl (10.1-14.3) L 06/04/19 16:08 Hct 29.9 % (30.3-42.9) L 06/04/19 16:08 MCV 93 fl (79-97) 06/04/19 16:08 MCH 30 pg (28-32) 06/04/19 16:08 MCHC 32 % (30-34) 06/04/19 16:08 RDW 15.0 % (13.2-15.2) 06/04/19 16:08 Plt Count 219 K/mm3 (140-440) 06/04/19 16:08 Lymph % (Auto) 21.1 % (13.4-35.0) 06/04/19 16:08 [place] % (Auto) 7.4 % (0.0-7.3) H 06/04/19 16:08 Eos % (Auto) 1.6 % (0.0-4.3) 06/04/19 16:08 Baso % (Auto) 0.6 % (0.0-1.8) 06/04/19 16:08 Lymph # 1.5 K/mm3 (1.2-5.4) 06/04/19 16:08 [place] # 0.5 K/mm3 (0.0-0.8) 06/04/19 16:08 Eos # 0.1 K/mm3 (0.0-0.4) 06/04/19 16:08 Baso # 0.0 K/mm3 (0.0-0.1) 06/04/19 16:08 Seg Neutrophils % 69.3 % (40.0-70.0) 06/04/19 16:08 Seg Neutrophils # 4.8 K/mm3 (1.8-7.7) 06/04/19 16:08 POC ABG pH 7.388 (7.35-7.45) 05/17/19 17:58 POC ABG pCO2 52.4 (35-45) H 05/17/19 17:58 POC ABG pO2 70 (80-105) L 05/17/19 17:58 POC ABG HCO3 31.6 (22-26 mml/L) 05/17/19 17:58 POC ABG Total CO2 33 (23-27mmol/L) 05/17/19 17:58 POC ABG O2 Sat 93 05/17/19 17:58 POC ABG Base Excess 7 ((-2) - (+3)mmol/L) 05/17/19 17:58 FiO2 28 % 05/17/19 17:58 Sodium 135 mmol/L (137-145) L 05/27/19 13:09 Potassium 5.3 mmol/L (3.6-5.0) H 05/27/19 13:09 Chloride 97.0 mmol/L (98-107) L 05/27/19 13:09 Carbon Dioxide 27 mmol/L (22-30) 05/27/19 13:09 Anion Gap 16 mmol/L 05/27/19 13:09 BUN 47 mg/dL (7-17) H 05/27/19 13:09 Creatinine 1.3 mg/dL (0.7-1.2) H 05/27/19 13:09 Estimated GFR 39 ml/min 05/27/19 13:09 BUN/Creatinine Ratio 36 % 05/27/19 13:09 Glucose 159 mg/dL (65-100) H 05/27/19 13:09 POC Glucose 180 (70-105) H 06/09/19 11:50 Hemoglobin A1c 8.5 % (4-6) H 05/16/19 07:10 Calcium 8.2 mg/dL (8.4-10.2) L 05/27/19 13:09 Total Bilirubin 0.30 mg/dL (0.1-1.2) 05/27/19 13:09 AST 24 units/L (5-40) 05/27/19 13:09 ALT 11 units/L (7-56) 05/27/19 13:09 Alkaline Phosphatase 125 units/L (35-129) 05/27/19 13:09 Total Protein 7.4 g/dL (6.3-8.2) 05/27/19 13:09 Albumin 2.7 g/dL (3.9-5) L 05/27/19 13:09 Albumin/Globulin Ratio 0.6 % 05/27/19 13:09 Triglycerides 113 mg/dL (2-149) 05/16/19 07:10 Cholesterol 111 mg/dL (50-199) 05/16/19 07:10 LDL Cholesterol Direct 63 mg/dL (50-130) 05/16/19 07:10 HDL Cholesterol 26 mg/dL (40-59) L 05/16/19 07:10 Cholesterol/HDL Ratio 4.26 % 05/16/19 07:10 Urine Color Yellow (Yellow) 05/31/19 Unknown Urine Turbidity Cloudy (Clear) 05/31/19 Unknown Urine pH 5.0 (5.0-7.0) 05/31/19 Unknown Ur Specific [place] 1.012 (1.003-1.030) 05/31/19 Unknown Urine Protein <15 mg/dl mg/dL (Negative) 05/31/19 Unknown Urine Glucose (UA) Neg mg/dL (Negative) 05/31/19 Unknown Urine Ketones Neg mg/dL (Negative) 05/31/19 Unknown Urine Blood Sm (Negative) 05/31/19 Unknown Urine Nitrite Neg (Negative) 05/31/19 Unknown Urine Bilirubin Neg (Negative) 05/31/19 Unknown Urine Urobilinogen < 2.0 mg/dL (<2.0) 05/31/19 Unknown Ur Leukocyte Esterase Lg (Negative) 05/31/19 Unknown Urine WBC (Auto) > 182.0 /HPF (0.0-6.0) H 05/31/19 Unknown Urine RBC (Auto) 9.0 /HPF (0.0-6.0) 05/31/19 Unknown U Epithel Cells (Auto) 3.0 /HPF (0-13.0) 05/31/19 Unknown Urine Bacteria (Auto) 2+ /HPF (Negative) 05/31/19 Unknown Urine WBC Clumps 3+ /HPF 05/31/19 Unknown - Discharge Diagnoses (1) Major neurocognitive disorder due to Alzheimer's disease, with behavioral disturbance Status: Acute Core Measure Documentation - Palliative Care Palliative Care/ Comfort Measures: Not Applicable - Core Measures Any of the following diagnoses?: none Exam - Constitutional Vitals: Temp Pulse Resp BP Pulse Ox 98.1 F 53 L 20 123/51 97 06/08/19 19:43 06/08/19 19:43 06/08/19 19:43 06/08/19 19:43 06/08/19 19:43 General appearance: Present: no acute distress, well-nourished - EENT Eyes: Present: PERRL, EOM intact ENT: hearing intact, clear oral mucosa - Neck Neck: Present: supple, normal ROM - Respiratory Respiratory effort: normal Plan Activity: advance as tolerated Weight Bearing Status: Weight Bear as Tolerated Care Plan Goals: Maintain good and stable mood Plan of Treatment: Take medications as prescribed and attend out-patient appointments Health Concerns: Hypoxia Assessment: Dementia Follow up with: NICOLA SAMUEL [Other] - 7 Days Prescriptions: Calcium Carb/Vit D3/Minerals [Caltrate Plus] 1 each PO BID #60 tablet Famotidine [Pepcid] 20 mg PO QDAY #30 tablet ALBUTEROL NEB's [Proventil 0.083% NEBS] 2.5 mg IH Q4HRT PRN #30 nebu PRN Reason: Shortness Of Breath
[2019-06-09] MEDS: CALTRATE PLUS PO SCH ×2 (18:36→21:17)
[2019-06-09] MEDS: LANTUS SUB-Q SCH (22:00)
[2019-06-10] MEDS: HumaLOG SUB-Q SCH ×3 (08:25→22:41)
[2019-06-10] MEDS: CALTRATE PLUS PO SCH ×2 (11:53→21:30)
[2019-06-10] MEDS: CEFTIN PO SCH ×2 (11:53→21:30)
[2019-06-10] MEDS: PEPCID PO SCH (11:54)
[2019-06-10] MEDS: LANTUS SUB-Q SCH (22:39)
[2019-06-10] MEDS: PROVENTIL IH PRN (23:18)
[2019-06-11] MEDS: HumaLOG SUB-Q SCH ×5 (02:07→21:33)
[2019-06-11] MEDS: CALTRATE PLUS PO SCH ×2 (09:27→21:35)
[2019-06-11] MEDS: CEFTIN PO SCH ×2 (09:27→21:34)
[2019-06-11] MEDS: PEPCID PO SCH (09:27)
[2019-06-11] MEDS: LANTUS SUB-Q SCH (21:49)
--- NOTE | 2019-06-12 04:49 | Progress Note ---
Subjective Date of service: 06/11/19 Principal diagnosis: Dementia with behavioral disturbance Subjective Comment: intermediate decline to accept patient back. She reports feeling ok this morning. MSE Orientation: place Affect: normal Mood: calm Thought Process: Disorganized, Disoriented Perceptions: none Speech: paucity Motor activity: lethargic Level of consciousness: confused Memory: Recent Impaired, Remote Impaired Interaction: cooperative Objective - Criteria for Continued Treatment Criteria for Continued Treatment: Improving Level of Functioning, Improving Emotional/Socia - Objective Observation Participation Level: Minimal Reason(s) For Not Participating: Unable Assessment and Plan - Patient Problems (1) Major neurocognitive disorder due to Alzheimer's disease, with behavioral disturbance Current Visit: Yes Status: Acute Plan to address problem: Patient will be admitted for inpatient psychiatric evaluation, medication adjustment and close monitoring The patient's behavior, mood, sleep and appetite will be closely monitored. Patient will be enrolled in individual and group therapeutic sessions and encouraged to attend. Patient will be provided with a safe and structured environment. Patient's physical health needs will be addressed by the Hospitalist. Social Assessment will be completed and the [employer] Member will work with patient and family to ensure a suitable and safe disposition Medication adjustment will be made as clinically indicated Medications and Allergies Allergies Allergy/AdvReac Type Severity Reaction Status Date / Time codeine Allergy Mild Unknown Verified 05/15/19 22:13 enoxaparin [From Lovenox] Allergy Mild Unknown Verified 05/15/19 22:13 Home Medications Medication Instructions Recorded Confirmed Last Taken Type Insulin Glargine [Lantus VIAL] 18 unit SUB-Q BID 05/16/19 05/16/19 Unknown History ALBUTEROL NEB's [Proventil 0.083% 2.5 mg IH Q4HRT PRN #30 nebu 06/09/19 Unknown Rx NEBS] Calcium Carb/Vit D3/Minerals 1 each PO BID #60 tablet 06/09/19 Unknown Rx [Caltrate Plus] Famotidine [Pepcid] 20 mg PO QDAY #30 tablet 06/09/19 Unknown Rx Active Meds: Active Medications Albuterol (Proventil) 2.5 mg IH Q4HRT PRN PRN Reason: Shortness Of Breath Last Admin: 06/10/19 23:18 Dose: 2.5 mg Documented by: Cefuroxime Axetil (Ceftin) 500 mg PO Q12HR [facility] Last Admin: 06/11/19 21:34 Dose: 500 mg Documented by: Dextrose (D50w (25gm) Syringe) 50 ml IV PRN PRN PRN Reason: Hypoglycemia Famotidine (Pepcid) 20 mg PO QDAY [facility] Last Admin: 06/11/19 09:27 Dose: 20 mg Documented by: Insulin Glargine (Lantus) 18 units SUB-Q QHS [facility] Last Admin: 06/11/19 21:49 Dose: 18 units Documented by: Insulin Human Lispro (Humalog) 0 unit SUB-Q ACHS [facility]; Protocol Last Admin: 06/11/19 21:33 Dose: 3 unit Documented by: Multivitamins/Minerals (Caltrate Plus) 1 each PO BID [facility] Last Admin: 06/11/19 21:35 Dose: 1 each Documented by: Results - Results Labs/Vitals: Laboratory Last Values WBC 6.9 K/mm3 (4.5-11.0) 06/04/19 16:08 RBC 3.21 M/mm3 (3.65-5.03) L 06/04/19 16:08 Hgb 9.6 gm/dl (10.1-14.3) L 06/04/19 16:08 Hct 29.9 % (30.3-42.9) L 06/04/19 16:08 MCV 93 fl (79-97) 06/04/19 16:08 MCH 30 pg (28-32) 06/04/19 16:08 MCHC 32 % (30-34) 06/04/19 16:08 RDW 15.0 % (13.2-15.2) 06/04/19 16:08 Plt Count 219 K/mm3 (140-440) 06/04/19 16:08 Lymph % (Auto) 21.1 % (13.4-35.0) 06/04/19 16:08 [place] % (Auto) 7.4 % (0.0-7.3) H 06/04/19 16:08 Eos % (Auto) 1.6 % (0.0-4.3) 06/04/19 16:08 Baso % (Auto) 0.6 % (0.0-1.8) 06/04/19 16:08 Lymph # 1.5 K/mm3 (1.2-5.4) 06/04/19 16:08 [place] # 0.5 K/mm3 (0.0-0.8) 06/04/19 16:08 Eos # 0.1 K/mm3 (0.0-0.4) 06/04/19 16:08 Baso # 0.0 K/mm3 (0.0-0.1) 06/04/19 16:08 Seg Neutrophils % 69.3 % (40.0-70.0) 06/04/19 16:08 Seg Neutrophils # 4.8 K/mm3 (1.8-7.7) 06/04/19 16:08 POC ABG pH 7.388 (7.35-7.45) 05/17/19 17:58 POC ABG pCO2 52.4 (35-45) H 05/17/19 17:58 POC ABG pO2 70 (80-105) L 05/17/19 17:58 POC ABG HCO3 31.6 (22-26 mml/L) 05/17/19 17:58 POC ABG Total CO2 33 (23-27mmol/L) 05/17/19 17:58 POC ABG O2 Sat 93 05/17/19 17:58 POC ABG Base Excess 7 ((-2) - (+3)mmol/L) 05/17/19 17:58 FiO2 28 % 05/17/19 17:58 Sodium 135 mmol/L (137-145) L 05/27/19 13:09 Potassium 5.3 mmol/L (3.6-5.0) H 05/27/19 13:09 Chloride 97.0 mmol/L (98-107) L 05/27/19 13:09 Carbon Dioxide 27 mmol/L (22-30) 05/27/19 13:09 Anion Gap 16 mmol/L 05/27/19 13:09 BUN 47 mg/dL (7-17) H 05/27/19 13:09 Creatinine 1.3 mg/dL (0.7-1.2) H 05/27/19 13:09 Estimated GFR 39 ml/min 05/27/19 13:09 BUN/Creatinine Ratio 36 % 05/27/19 13:09 Glucose 159 mg/dL (65-100) H 05/27/19 13:09 POC Glucose 177 (70-105) H 06/11/19 20:12 Hemoglobin A1c 8.5 % (4-6) H 05/16/19 07:10 Calcium 8.2 mg/dL (8.4-10.2) L 05/27/19 13:09 Total Bilirubin 0.30 mg/dL (0.1-1.2) 05/27/19 13:09 AST 24 units/L (5-40) 05/27/19 13:09 ALT 11 units/L (7-56) 05/27/19 13:09 Alkaline Phosphatase 125 units/L (35-129) 05/27/19 13:09 Total Protein 7.4 g/dL (6.3-8.2) 05/27/19 13:09 Albumin 2.7 g/dL (3.9-5) L 05/27/19 13:09 Albumin/Globulin Ratio 0.6 % 05/27/19 13:09 Triglycerides 113 mg/dL (2-149) 05/16/19 07:10 Cholesterol 111 mg/dL (50-199) 05/16/19 07:10 LDL Cholesterol Direct 63 mg/dL (50-130) 05/16/19 07:10 HDL Cholesterol 26 mg/dL (40-59) L 05/16/19 07:10 Cholesterol/HDL Ratio 4.26 % 05/16/19 07:10 Urine Color Yellow (Yellow) 05/31/19 Unknown Urine Turbidity Cloudy (Clear) 05/31/19 Unknown Urine pH 5.0 (5.0-7.0) 05/31/19 Unknown Ur Specific [place] 1.012 (1.003-1.030) 05/31/19 Unknown Urine Protein <15 mg/dl mg/dL (Negative) 05/31/19 Unknown Urine Glucose (UA) Neg mg/dL (Negative) 05/31/19 Unknown Urine Ketones Neg mg/dL (Negative) 05/31/19 Unknown Urine Blood Sm (Negative) 05/31/19 Unknown Urine Nitrite Neg (Negative) 05/31/19 Unknown Urine Bilirubin Neg (Negative) 05/31/19 Unknown Urine Urobilinogen < 2.0 mg/dL (<2.0) 05/31/19 Unknown Ur Leukocyte Esterase Lg (Negative) 05/31/19 Unknown Urine WBC (Auto) > 182.0 /HPF (0.0-6.0) H 05/31/19 Unknown Urine RBC (Auto) 9.0 /HPF (0.0-6.0) 05/31/19 Unknown U Epithel Cells (Auto) 3.0 /HPF (0-13.0) 05/31/19 Unknown Urine Bacteria (Auto) 2+ /HPF (Negative) 05/31/19 Unknown Urine WBC Clumps 3+ /HPF 05/31/19 Unknown Last Vital Signs Temp 97.9 F 06/11/19 20:11 Pulse 58 L 06/11/19 20:11 Resp 18 06/11/19 20:11 BP 150/53 06/11/19 20:11 Pulse Ox 98 06/11/19 20:11
--- NOTE | 2019-06-12 04:51 | Progress Note ---
Subjective Date of service: 06/10/19 Principal diagnosis: Dementia with behavioral disturbance Subjective Comment: retirement decline to accept patient back. She reports feeling ok this morning. MSE Orientation: place Affect: normal Mood: calm Thought Process: Disorganized, Disoriented Perceptions: none Speech: paucity Motor activity: lethargic Level of consciousness: confused Memory: Recent Impaired, Remote Impaired Interaction: cooperative Objective - Criteria for Continued Treatment Criteria for Continued Treatment: Improving Level of Functioning, Stablizing Level of Functioning, Improving Emotional/Socia - Objective Observation Participation Level: Minimal Reason(s) For Not Participating: Unable Assessment and Plan - Patient Problems (1) Major neurocognitive disorder due to Alzheimer's disease, with behavioral disturbance Current Visit: Yes Status: Acute Plan to address problem: Patient will be admitted for inpatient psychiatric evaluation, medication adjustment and close monitoring The patient's behavior, mood, sleep and appetite will be closely monitored. Patient will be enrolled in individual and group therapeutic sessions and encouraged to attend. Patient will be provided with a safe and structured environment. Patient's physical health needs will be addressed by the Hospitalist. Social Assessment will be completed and the Geotechnicial Properties Technician will work with patient and family to ensure a suitable and safe disposition Medication adjustment will be made as clinically indicated Medications and Allergies Allergies Allergy/AdvReac Type Severity Reaction Status Date / Time codeine Allergy Mild Unknown Verified 05/15/19 22:13 enoxaparin [From Lovenox] Allergy Mild Unknown Verified 05/15/19 22:13 Home Medications Medication Instructions Recorded Confirmed Last Taken Type Insulin Glargine [Lantus VIAL] 18 unit SUB-Q BID 05/16/19 05/16/19 Unknown History ALBUTEROL NEB's [Proventil 0.083% 2.5 mg IH Q4HRT PRN #30 nebu 06/09/19 Unknown Rx NEBS] Calcium Carb/Vit D3/Minerals 1 each PO BID #60 tablet 06/09/19 Unknown Rx [Caltrate Plus] Famotidine [Pepcid] 20 mg PO QDAY #30 tablet 06/09/19 Unknown Rx Active Meds: Active Medications Albuterol (Proventil) 2.5 mg IH Q4HRT PRN PRN Reason: Shortness Of Breath Last Admin: 06/10/19 23:18 Dose: 2.5 mg Documented by: Cefuroxime Axetil (Ceftin) 500 mg PO Q12HR [facility] Last Admin: 06/11/19 21:34 Dose: 500 mg Documented by: Dextrose (D50w (25gm) Syringe) 50 ml IV PRN PRN PRN Reason: Hypoglycemia Famotidine (Pepcid) 20 mg PO QDAY [facility] Last Admin: 06/11/19 09:27 Dose: 20 mg Documented by: Insulin Glargine (Lantus) 18 units SUB-Q QHS [facility] Last Admin: 06/11/19 21:49 Dose: 18 units Documented by: Insulin Human Lispro (Humalog) 0 unit SUB-Q ACHS [facility]; Protocol Last Admin: 06/11/19 21:33 Dose: 3 unit Documented by: Multivitamins/Minerals (Caltrate Plus) 1 each PO BID [facility] Last Admin: 06/11/19 21:35 Dose: 1 each Documented by: Results - Results Labs/Vitals: Laboratory Last Values WBC 6.9 K/mm3 (4.5-11.0) 06/04/19 16:08 RBC 3.21 M/mm3 (3.65-5.03) L 06/04/19 16:08 Hgb 9.6 gm/dl (10.1-14.3) L 06/04/19 16:08 Hct 29.9 % (30.3-42.9) L 06/04/19 16:08 MCV 93 fl (79-97) 06/04/19 16:08 MCH 30 pg (28-32) 06/04/19 16:08 MCHC 32 % (30-34) 06/04/19 16:08 RDW 15.0 % (13.2-15.2) 06/04/19 16:08 Plt Count 219 K/mm3 (140-440) 06/04/19 16:08 Lymph % (Auto) 21.1 % (13.4-35.0) 06/04/19 16:08 [place] % (Auto) 7.4 % (0.0-7.3) H 06/04/19 16:08 Eos % (Auto) 1.6 % (0.0-4.3) 06/04/19 16:08 Baso % (Auto) 0.6 % (0.0-1.8) 06/04/19 16:08 Lymph # 1.5 K/mm3 (1.2-5.4) 06/04/19 16:08 [place] # 0.5 K/mm3 (0.0-0.8) 06/04/19 16:08 Eos # 0.1 K/mm3 (0.0-0.4) 06/04/19 16:08 Baso # 0.0 K/mm3 (0.0-0.1) 06/04/19 16:08 Seg Neutrophils % 69.3 % (40.0-70.0) 06/04/19 16:08 Seg Neutrophils # 4.8 K/mm3 (1.8-7.7) 06/04/19 16:08 POC ABG pH 7.388 (7.35-7.45) 05/17/19 17:58 POC ABG pCO2 52.4 (35-45) H 05/17/19 17:58 POC ABG pO2 70 (80-105) L 05/17/19 17:58 POC ABG HCO3 31.6 (22-26 mml/L) 05/17/19 17:58 POC ABG Total CO2 33 (23-27mmol/L) 05/17/19 17:58 POC ABG O2 Sat 93 05/17/19 17:58 POC ABG Base Excess 7 ((-2) - (+3)mmol/L) 05/17/19 17:58 FiO2 28 % 05/17/19 17:58 Sodium 135 mmol/L (137-145) L 05/27/19 13:09 Potassium 5.3 mmol/L (3.6-5.0) H 05/27/19 13:09 Chloride 97.0 mmol/L (98-107) L 05/27/19 13:09 Carbon Dioxide 27 mmol/L (22-30) 05/27/19 13:09 Anion Gap 16 mmol/L 05/27/19 13:09 BUN 47 mg/dL (7-17) H 05/27/19 13:09 Creatinine 1.3 mg/dL (0.7-1.2) H 05/27/19 13:09 Estimated GFR 39 ml/min 05/27/19 13:09 BUN/Creatinine Ratio 36 % 05/27/19 13:09 Glucose 159 mg/dL (65-100) H 05/27/19 13:09 POC Glucose 177 (70-105) H 06/11/19 20:12 Hemoglobin A1c 8.5 % (4-6) H 05/16/19 07:10 Calcium 8.2 mg/dL (8.4-10.2) L 05/27/19 13:09 Total Bilirubin 0.30 mg/dL (0.1-1.2) 05/27/19 13:09 AST 24 units/L (5-40) 05/27/19 13:09 ALT 11 units/L (7-56) 05/27/19 13:09 Alkaline Phosphatase 125 units/L (35-129) 05/27/19 13:09 Total Protein 7.4 g/dL (6.3-8.2) 05/27/19 13:09 Albumin 2.7 g/dL (3.9-5) L 05/27/19 13:09 Albumin/Globulin Ratio 0.6 % 05/27/19 13:09 Triglycerides 113 mg/dL (2-149) 05/16/19 07:10 Cholesterol 111 mg/dL (50-199) 05/16/19 07:10 LDL Cholesterol Direct 63 mg/dL (50-130) 05/16/19 07:10 HDL Cholesterol 26 mg/dL (40-59) L 05/16/19 07:10 Cholesterol/HDL Ratio 4.26 % 05/16/19 07:10 Urine Color Yellow (Yellow) 05/31/19 Unknown Urine Turbidity Cloudy (Clear) 05/31/19 Unknown Urine pH 5.0 (5.0-7.0) 05/31/19 Unknown Ur Specific [place] 1.012 (1.003-1.030) 05/31/19 Unknown Urine Protein <15 mg/dl mg/dL (Negative) 05/31/19 Unknown Urine Glucose (UA) Neg mg/dL (Negative) 05/31/19 Unknown Urine Ketones Neg mg/dL (Negative) 05/31/19 Unknown Urine Blood Sm (Negative) 05/31/19 Unknown Urine Nitrite Neg (Negative) 05/31/19 Unknown Urine Bilirubin Neg (Negative) 05/31/19 Unknown Urine Urobilinogen < 2.0 mg/dL (<2.0) 05/31/19 Unknown Ur Leukocyte Esterase Lg (Negative) 05/31/19 Unknown Urine WBC (Auto) > 182.0 /HPF (0.0-6.0) H 05/31/19 Unknown Urine RBC (Auto) 9.0 /HPF (0.0-6.0) 05/31/19 Unknown U Epithel Cells (Auto) 3.0 /HPF (0-13.0) 05/31/19 Unknown Urine Bacteria (Auto) 2+ /HPF (Negative) 05/31/19 Unknown Urine WBC Clumps 3+ /HPF 05/31/19 Unknown Last Vital Signs Temp 97.9 F 06/11/19 20:11 Pulse 58 L 06/11/19 20:11 Resp 18 06/11/19 20:11 BP 150/53 06/11/19 20:11 Pulse Ox 98 06/11/19 20:11
[2019-06-12] MEDS: HumaLOG SUB-Q SCH ×4 (08:27→21:04)
[2019-06-12] MEDS: PEPCID PO SCH (09:15)
[2019-06-12] MEDS: CALTRATE PLUS PO SCH ×2 (09:15→21:04)
[2019-06-12] MEDS: CEFTIN PO SCH ×2 (09:15→21:04)
--- NOTE | 2019-06-12 19:53 | Progress Note ---
Subjective Date of service: 06/12/19 Principal diagnosis: Dementia with behavioral disturbance Subjective Comment: No new complaints. Patient is calm and cooperative with cares, compliant with cares, sleeps and eats adequately. Awaiting placement in a NH. MSE Orientation: place Affect: normal Mood: calm Thought Process: Disorganized, Disoriented Perceptions: none Speech: paucity Motor activity: lethargic Level of consciousness: confused Memory: Recent Impaired, Remote Impaired Interaction: cooperative Objective - Criteria for Continued Treatment Criteria for Continued Treatment: Stablizing Level of Functioning - Objective Observation Participation Level: Minimal Reason(s) For Not Participating: Unable Assessment and Plan - Patient Problems (1) Major neurocognitive disorder due to Alzheimer's disease, with behavioral disturbance Current Visit: Yes Status: Acute Plan to address problem: Patient will be admitted for inpatient psychiatric evaluation, medication adjustment and close monitoring The patient's behavior, mood, sleep and appetite will be closely monitored. Patient will be enrolled in individual and group therapeutic sessions and encouraged to attend. Patient will be provided with a safe and structured environment. Patient's physical health needs will be addressed by the Hospitalist. Social Assessment will be completed and the Salvager will work with patient and family to ensure a suitable and safe disposition Medication adjustment will be made as clinically indicated Medications and Allergies Allergies Allergy/AdvReac Type Severity Reaction Status Date / Time codeine Allergy Mild Unknown Verified 05/15/19 22:13 enoxaparin [From Lovenox] Allergy Mild Unknown Verified 05/15/19 22:13 Home Medications Medication Instructions Recorded Confirmed Last Taken Type Insulin Glargine [Lantus VIAL] 18 unit SUB-Q BID 05/16/19 05/16/19 Unknown History ALBUTEROL NEB's [Proventil 0.083% 2.5 mg IH Q4HRT PRN #30 nebu 06/09/19 Unknown Rx NEBS] Calcium Carb/Vit D3/Minerals 1 each PO BID #60 tablet 06/09/19 Unknown Rx [Caltrate Plus] Famotidine [Pepcid] 20 mg PO QDAY #30 tablet 06/09/19 Unknown Rx Active Meds: Active Medications Albuterol (Proventil) 2.5 mg IH Q4HRT PRN PRN Reason: Shortness Of Breath Last Admin: 06/10/19 23:18 Dose: 2.5 mg Documented by: Cefuroxime Axetil (Ceftin) 500 mg PO Q12HR [facility] Last Admin: 06/12/19 09:15 Dose: 500 mg Documented by: Dextrose (D50w (25gm) Syringe) 50 ml IV PRN PRN PRN Reason: Hypoglycemia Famotidine (Pepcid) 20 mg PO QDAY [facility] Last Admin: 06/12/19 09:15 Dose: 20 mg Documented by: Insulin Glargine (Lantus) 18 units SUB-Q QHS [facility] Last Admin: 06/11/19 21:49 Dose: 18 units Documented by: Insulin Human Lispro (Humalog) 0 unit SUB-Q ACHS [facility]; Protocol Last Admin: 06/12/19 16:54 Dose: Not Given Documented by: Multivitamins/Minerals (Caltrate Plus) 1 each PO BID [facility] Last Admin: 06/12/19 09:15 Dose: 1 each Documented by: Results - Results Labs/Vitals: Laboratory Last Values WBC 6.9 K/mm3 (4.5-11.0) 06/04/19 16:08 RBC 3.21 M/mm3 (3.65-5.03) L 06/04/19 16:08 Hgb 9.6 gm/dl (10.1-14.3) L 06/04/19 16:08 Hct 29.9 % (30.3-42.9) L 06/04/19 16:08 MCV 93 fl (79-97) 06/04/19 16:08 MCH 30 pg (28-32) 06/04/19 16:08 MCHC 32 % (30-34) 06/04/19 16:08 RDW 15.0 % (13.2-15.2) 06/04/19 16:08 Plt Count 219 K/mm3 (140-440) 06/04/19 16:08 Lymph % (Auto) 21.1 % (13.4-35.0) 06/04/19 16:08 [place] % (Auto) 7.4 % (0.0-7.3) H 06/04/19 16:08 Eos % (Auto) 1.6 % (0.0-4.3) 06/04/19 16:08 Baso % (Auto) 0.6 % (0.0-1.8) 06/04/19 16:08 Lymph # 1.5 K/mm3 (1.2-5.4) 06/04/19 16:08 [place] # 0.5 K/mm3 (0.0-0.8) 06/04/19 16:08 Eos # 0.1 K/mm3 (0.0-0.4) 06/04/19 16:08 Baso # 0.0 K/mm3 (0.0-0.1) 06/04/19 16:08 Seg Neutrophils % 69.3 % (40.0-70.0) 06/04/19 16:08 Seg Neutrophils # 4.8 K/mm3 (1.8-7.7) 06/04/19 16:08 POC ABG pH 7.388 (7.35-7.45) 05/17/19 17:58 POC ABG pCO2 52.4 (35-45) H 05/17/19 17:58 POC ABG pO2 70 (80-105) L 05/17/19 17:58 POC ABG HCO3 31.6 (22-26 mml/L) 05/17/19 17:58 POC ABG Total CO2 33 (23-27mmol/L) 05/17/19 17:58 POC ABG O2 Sat 93 05/17/19 17:58 POC ABG Base Excess 7 ((-2) - (+3)mmol/L) 05/17/19 17:58 FiO2 28 % 05/17/19 17:58 Sodium 135 mmol/L (137-145) L 05/27/19 13:09 Potassium 5.3 mmol/L (3.6-5.0) H 05/27/19 13:09 Chloride 97.0 mmol/L (98-107) L 05/27/19 13:09 Carbon Dioxide 27 mmol/L (22-30) 05/27/19 13:09 Anion Gap 16 mmol/L 05/27/19 13:09 BUN 47 mg/dL (7-17) H 05/27/19 13:09 Creatinine 1.3 mg/dL (0.7-1.2) H 05/27/19 13:09 Estimated GFR 39 ml/min 05/27/19 13:09 BUN/Creatinine Ratio 36 % 05/27/19 13:09 Glucose 159 mg/dL (65-100) H 05/27/19 13:09 POC Glucose 145 (70-105) H 06/12/19 19:44 Hemoglobin A1c 8.5 % (4-6) H 05/16/19 07:10 Calcium 8.2 mg/dL (8.4-10.2) L 05/27/19 13:09 Total Bilirubin 0.30 mg/dL (0.1-1.2) 05/27/19 13:09 AST 24 units/L (5-40) 05/27/19 13:09 ALT 11 units/L (7-56) 05/27/19 13:09 Alkaline Phosphatase 125 units/L (35-129) 05/27/19 13:09 Total Protein 7.4 g/dL (6.3-8.2) 05/27/19 13:09 Albumin 2.7 g/dL (3.9-5) L 05/27/19 13:09 Albumin/Globulin Ratio 0.6 % 05/27/19 13:09 Triglycerides 113 mg/dL (2-149) 05/16/19 07:10 Cholesterol 111 mg/dL (50-199) 05/16/19 07:10 LDL Cholesterol Direct 63 mg/dL (50-130) 05/16/19 07:10 HDL Cholesterol 26 mg/dL (40-59) L 05/16/19 07:10 Cholesterol/HDL Ratio 4.26 % 05/16/19 07:10 Urine Color Yellow (Yellow) 05/31/19 Unknown Urine Turbidity Cloudy (Clear) 05/31/19 Unknown Urine pH 5.0 (5.0-7.0) 05/31/19 Unknown Ur Specific [place] 1.012 (1.003-1.030) 05/31/19 Unknown Urine Protein <15 mg/dl mg/dL (Negative) 05/31/19 Unknown Urine Glucose (UA) Neg mg/dL (Negative) 05/31/19 Unknown Urine Ketones Neg mg/dL (Negative) 05/31/19 Unknown Urine Blood Sm (Negative) 05/31/19 Unknown Urine Nitrite Neg (Negative) 05/31/19 Unknown Urine Bilirubin Neg (Negative) 05/31/19 Unknown Urine Urobilinogen < 2.0 mg/dL (<2.0) 05/31/19 Unknown Ur Leukocyte Esterase Lg (Negative) 05/31/19 Unknown Urine WBC (Auto) > 182.0 /HPF (0.0-6.0) H 05/31/19 Unknown Urine RBC (Auto) 9.0 /HPF (0.0-6.0) 05/31/19 Unknown U Epithel Cells (Auto) 3.0 /HPF (0-13.0) 05/31/19 Unknown Urine Bacteria (Auto) 2+ /HPF (Negative) 05/31/19 Unknown Urine WBC Clumps 3+ /HPF 05/31/19 Unknown Last Vital Signs Temp 98.2 F 06/12/19 09:06 Pulse 59 L 06/12/19 10:00 Resp 14 06/12/19 10:00 BP 141/50 06/12/19 10:00 Pulse Ox 96 06/12/19 10:00
[2019-06-12] MEDS: LANTUS SUB-Q SCH (21:39)
--- NOTE | 2019-06-13 07:24 | Progress Note ---
Subjective Date of service: 06/13/19 Principal diagnosis: Dementia with behavioral disturbance Subjective Comment: No new complaints. Patient is calm and cooperative with cares, compliant with cares, sleeps and eats adequately. Awaiting placement in a NH Per nurse, Patient is alert and oriented to self. Denies pain, Patient is able to ambulate and stand x1-2 assist. Incontinent of bowel and bladder. Compliant with taking medications whole. 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 Patient will be enrolled in individual and group therapeutic sessions and encouraged to attend. Patient will be provided with a safe and structured environment. Patient's physical health needs will be addressed by the Hospitalist. Social Assessment will be completed and the Night Club Manager will work with patient and family to ensure a suitable and safe disposition Medication adjustment will be made as clinically indicated Medications and Allergies Allergies Allergy/AdvReac Type Severity Reaction Status Date / Time codeine Allergy Mild Unknown Verified 05/15/19 22:13 enoxaparin [From Lovenox] Allergy Mild Unknown Verified 05/15/19 22:13 Home Medications Medication Instructions Recorded Confirmed Last Taken Type Insulin Glargine [Lantus VIAL] 18 unit SUB-Q BID 05/16/19 05/16/19 Unknown History ALBUTEROL NEB's [Proventil 0.083% 2.5 mg IH Q4HRT PRN #30 nebu 06/09/19 Unknown Rx NEBS] Calcium Carb/Vit D3/Minerals 1 each PO BID #60 tablet 06/09/19 Unknown Rx [Caltrate Plus] Famotidine [Pepcid] 20 mg PO QDAY #30 tablet 06/09/19 Unknown Rx Active Meds: Active Medications Albuterol (Proventil) 2.5 mg IH Q4HRT PRN PRN Reason: Shortness Of Breath Last Admin: 06/10/19 23:18 Dose: 2.5 mg Documented by: Cefuroxime Axetil (Ceftin) 500 mg PO Q12HR [facility] Last Admin: 06/12/19 21:04 Dose: 500 mg Documented by: Dextrose (D50w (25gm) Syringe) 50 ml IV PRN PRN PRN Reason: Hypoglycemia Famotidine (Pepcid) 20 mg PO QDAY [facility] Last Admin: 06/12/19 09:15 Dose: 20 mg Documented by: Insulin Glargine (Lantus) 18 units SUB-Q QHS [facility] Last Admin: 06/12/19 21:39 Dose: 18 units Documented by: Insulin Human Lispro (Humalog) 0 unit SUB-Q ACHS [facility]; Protocol Last Admin: 06/12/19 21:04 Dose: Not Given Documented by: Multivitamins/Minerals (Caltrate Plus) 1 each PO BID [facility] Last Admin: 06/12/19 21:04 Dose: 1 each Documented by: Results - Results Labs/Vitals: Laboratory Last Values WBC 6.9 K/mm3 (4.5-11.0) 06/04/19 16:08 RBC 3.21 M/mm3 (3.65-5.03) L 06/04/19 16:08 Hgb 9.6 gm/dl (10.1-14.3) L 06/04/19 16:08 Hct 29.9 % (30.3-42.9) L 06/04/19 16:08 MCV 93 fl (79-97) 06/04/19 16:08 MCH 30 pg (28-32) 06/04/19 16:08 MCHC 32 % (30-34) 06/04/19 16:08 RDW 15.0 % (13.2-15.2) 06/04/19 16:08 Plt Count 219 K/mm3 (140-440) 06/04/19 16:08 Lymph % (Auto) 21.1 % (13.4-35.0) 06/04/19 16:08 [place] % (Auto) 7.4 % (0.0-7.3) H 06/04/19 16:08 Eos % (Auto) 1.6 % (0.0-4.3) 06/04/19 16:08 Baso % (Auto) 0.6 % (0.0-1.8) 06/04/19 16:08 Lymph # 1.5 K/mm3 (1.2-5.4) 06/04/19 16:08 [place] # 0.5 K/mm3 (0.0-0.8) 06/04/19 16:08 Eos # 0.1 K/mm3 (0.0-0.4) 06/04/19 16:08 Baso # 0.0 K/mm3 (0.0-0.1) 06/04/19 16:08 Seg Neutrophils % 69.3 % (40.0-70.0) 06/04/19 16:08 Seg Neutrophils # 4.8 K/mm3 (1.8-7.7) 06/04/19 16:08 POC ABG pH 7.388 (7.35-7.45) 05/17/19 17:58 POC ABG pCO2 52.4 (35-45) H 05/17/19 17:58 POC ABG pO2 70 (80-105) L 05/17/19 17:58 POC ABG HCO3 31.6 (22-26 mml/L) 05/17/19 17:58 POC ABG Total CO2 33 (23-27mmol/L) 05/17/19 17:58 POC ABG O2 Sat 93 05/17/19 17:58 POC ABG Base Excess 7 ((-2) - (+3)mmol/L) 05/17/19 17:58 FiO2 28 % 05/17/19 17:58 Sodium 135 mmol/L (137-145) L 05/27/19 13:09 Potassium 5.3 mmol/L (3.6-5.0) H 05/27/19 13:09 Chloride 97.0 mmol/L (98-107) L 05/27/19 13:09 Carbon Dioxide 27 mmol/L (22-30) 05/27/19 13:09 Anion Gap 16 mmol/L 05/27/19 13:09 BUN 47 mg/dL (7-17) H 05/27/19 13:09 Creatinine 1.3 mg/dL (0.7-1.2) H 05/27/19 13:09 Estimated GFR 39 ml/min 05/27/19 13:09 BUN/Creatinine Ratio 36 % 05/27/19 13:09 Glucose 159 mg/dL (65-100) H 05/27/19 13:09 POC Glucose 145 (70-105) H 06/12/19 19:44 Hemoglobin A1c 8.5 % (4-6) H 05/16/19 07:10 Calcium 8.2 mg/dL (8.4-10.2) L 05/27/19 13:09 Total Bilirubin 0.30 mg/dL (0.1-1.2) 05/27/19 13:09 AST 24 units/L (5-40) 05/27/19 13:09 ALT 11 units/L (7-56) 05/27/19 13:09 Alkaline Phosphatase 125 units/L (35-129) 05/27/19 13:09 Total Protein 7.4 g/dL (6.3-8.2) 05/27/19 13:09 Albumin 2.7 g/dL (3.9-5) L 05/27/19 13:09 Albumin/Globulin Ratio 0.6 % 05/27/19 13:09 Triglycerides 113 mg/dL (2-149) 05/16/19 07:10 Cholesterol 111 mg/dL (50-199) 05/16/19 07:10 LDL Cholesterol Direct 63 mg/dL (50-130) 05/16/19 07:10 HDL Cholesterol 26 mg/dL (40-59) L 05/16/19 07:10 Cholesterol/HDL Ratio 4.26 % 05/16/19 07:10 Urine Color Yellow (Yellow) 05/31/19 Unknown Urine Turbidity Cloudy (Clear) 05/31/19 Unknown Urine pH 5.0 (5.0-7.0) 05/31/19 Unknown Ur Specific [place] 1.012 (1.003-1.030) 05/31/19 Unknown Urine Protein <15 mg/dl mg/dL (Negative) 05/31/19 Unknown Urine Glucose (UA) Neg mg/dL (Negative) 05/31/19 Unknown Urine Ketones Neg mg/dL (Negative) 05/31/19 Unknown Urine Blood Sm (Negative) 05/31/19 Unknown Urine Nitrite Neg (Negative) 05/31/19 Unknown Urine Bilirubin Neg (Negative) 05/31/19 Unknown Urine Urobilinogen < 2.0 mg/dL (<2.0) 05/31/19 Unknown Ur Leukocyte Esterase Lg (Negative) 05/31/19 Unknown Urine WBC (Auto) > 182.0 /HPF (0.0-6.0) H 05/31/19 Unknown Urine RBC (Auto) 9.0 /HPF (0.0-6.0) 05/31/19 Unknown U Epithel Cells (Auto) 3.0 /HPF (0-13.0) 05/31/19 Unknown Urine Bacteria (Auto) 2+ /HPF (Negative) 05/31/19 Unknown Urine WBC Clumps 3+ /HPF 05/31/19 Unknown Last Vital Signs Temp 98.1 F 06/12/19 22:00 Pulse 57 L 06/12/19 22:00 Resp 18 06/12/19 22:00 BP 142/54 06/12/19 22:00 Pulse Ox 96 06/12/19 22:00
[2019-06-13] MEDS: HumaLOG SUB-Q SCH ×4 (10:08→22:12)
[2019-06-13] MEDS: CEFTIN PO SCH (10:10)
[2019-06-13] MEDS: CALTRATE PLUS PO SCH ×2 (10:10→22:11)
[2019-06-13] MEDS: PEPCID PO SCH (10:10)
[2019-06-13] MEDS: PROVENTIL IH PRN (12:00)
[2019-06-13 14:45] LABS: Basophils % (Auto) 0.5 % (0.0-1.8); Eosinophils # (Auto) 0.1 K/mm3 (0.0-0.4); Eosinophils % (Auto) 0.7 % (0.0-4.3); Hematocrit 34.4 % (30.3-42.9); Lymphocytes # (Auto) 1.5 K/mm3 (1.2-5.4); Lymphocytes % (Auto) 18.8 % (13.4-35.0); Mean Corpuscular HGB Conc 32 % (30-34); Mean Corpuscular Volume 92 fl (79-97); Monocytes # (Auto) 0.7 K/mm3 (0.0-0.8); Monocytes % (Auto) 8.7 % (0.0-7.3); Red Blood Count 3.74 M/mm3 (3.65-5.03)
[2019-06-13 14:51] LABS: Albumin 3.4 g/dL (3.9-5); Calcium 8.7 mg/dL (8.4-10.2)
--- NOTE | 2019-06-13 15:42 | Consultation ---
History of Present Illness - Reason for Consult Consult date: 06/13/19 Lethargic Requesting physician: JARROD MICHELE - History of Present Illness 83 YO Female with DM, Dementia, Chronic Respiratory Failure on 2L continuous oxygen via NC admitted to [facility]. Consult placed for lethargy. Pt and pulse oximetry of 71% on RA. Pt seen and evaluate and found to be in no acute distress. Pt is lethargic, but easily arousable, and once awakened, the patient is AOx3 with good insight. Pt is able to protect her airway. Pt reports insomnia, and usually goes to sleep around 0300 hrs daily. Pt denies fever, chills, CP, Palpitations, NVD. Pt states that "Im just tired". No additional reported nursing events. Past History Past Medical History: diabetes, other (Resp failure on O2) Past Surgical History: Other (Not available) Social history: smoking (in the past), full code, other (Patient lives in a [facility]) Family history: hypertension Medications and Allergies Allergies Allergy/AdvReac Type Severity Reaction Status Date / Time codeine Allergy Mild Unknown Verified 05/15/19 22:13 enoxaparin [From Lovenox] Allergy Mild Unknown Verified 05/15/19 22:13 Home Medications Medication Instructions Recorded Confirmed Last Taken Type Insulin Glargine [Lantus VIAL] 18 unit SUB-Q BID 05/16/19 05/16/19 Unknown History ALBUTEROL NEB's [Proventil 0.083% 2.5 mg IH Q4HRT PRN #30 nebu 06/09/19 Unknown Rx NEBS] Calcium Carb/Vit D3/Minerals 1 each PO BID #60 tablet 06/09/19 Unknown Rx [Caltrate Plus] Famotidine [Pepcid] 20 mg PO QDAY #30 tablet 06/09/19 Unknown Rx Active Meds: Active Medications Albuterol (Proventil) 2.5 mg IH Q4HRT PRN PRN Reason: Shortness Of Breath Last Admin: 06/13/19 12:00 Dose: 2.5 mg Documented by: Albuterol/Ipratropium (Duoneb *Not For Prn Use*) 1 ampul IH TIDRT SINDY Cefuroxime Axetil (Ceftin) 500 mg PO Q12HR [facility] Last Admin: 06/13/19 10:10 Dose: 500 mg Documented by: Dextrose (D50w (25gm) Syringe) 50 ml IV PRN PRN PRN Reason: Hypoglycemia Famotidine (Pepcid) 20 mg PO QDAY [facility] Last Admin: 06/13/19 10:10 Dose: 20 mg Documented by: Insulin Glargine (Lantus) 18 units SUB-Q QHS [facility] Last Admin: 06/12/19 21:39 Dose: 18 units Documented by: Insulin Human Lispro (Humalog) 0 unit SUB-Q ACHS [facility]; Protocol Last Admin: 06/13/19 12:45 Dose: 2 unit Documented by: Multivitamins/Minerals (Caltrate Plus) 1 each PO BID [facility] Last Admin: 06/13/19 10:10 Dose: 1 each Documented by: Review of Systems Constitutional: lethargy, no weight loss, no weight gain, no fever, no chills Ears, nose, mouth and throat: no ear pain, no ear discharge, no tinnitis, no decreased hearing, no nose pain, no nasal congestion, no nasal discharge Breasts: no change in shape, no swelling, no mass Cardiovascular: no chest pain, no orthopnea, no palpitations, no rapid/irregular heart beat, no edema, no syncope Respiratory: no cough, no cough with sputum, no excessive sputum, no shortness of breath Gastrointestinal: no nausea, no vomiting, no diarrhea, no constipation, no change in bowel habits Genitourinary Female: no pelvic pain, no flank pain Rectal: no pain, no incontinence, no bleeding Musculoskeletal: no neck stiffness, no neck pain, no shooting arm pain, no arm numbness/tingling, no low back pain, no shooting leg pain Integumentary: no rash, no pruritis, no redness, no sores, no wounds Neurological: no transient paralysis, no paralysis, no parathesias, no numbness, no tingling, no seizures Psychiatric: insomnia, no anxiety, no sleep disturbances, no change in appetite Endocrine: no cold intolerance, no heat intolerance, no polyphagia, no excessive thirst, no polydipsia, no polyuria Hematologic/Lymphatic: no easy bruising, no easy bleeding, no lymphadenopathy, no lymphedema Allergic/Immunologic: no urticaria, no allergic rhinitis, no persistent infections, no angioedema Exam - Constitutional Vitals: Temp Pulse Resp BP Pulse Ox 98.1 F 56 L 15 142/54 97 06/12/19 22:00 06/13/19 12:00 06/13/19 12:00 06/12/19 22:00 06/13/19 12:14 General appearance: Present: no acute distress, well-nourished - EENT Eyes: Present: PERRL ENT: hearing intact, clear oral mucosa - Neck Neck: Present: supple, normal ROM - Respiratory Respiratory effort: normal Respiratory: bilateral: CTA - Cardiovascular Heart Sounds: Present: S1 & S2. Absent: rub, click - Extremities Extremities: pulses symmetrical, No edema Peripheral Pulses: within normal limits - Abdominal General gastrointestinal: Present: soft, non-tender, non-distended, normal bowel sounds Female genitourinary: Present: normal - Integumentary Integumentary: Present: clear, warm, dry - Musculoskeletal Musculoskeletal: gait normal, strength equal bilaterally - Psychiatric Psychiatric: appropriate mood/affect, intact judgment & insight - Neurologic Neurologic: CNII-XII intact, moves all extremities Results - Labs CBC & Chem 7: 06/13/19 14:09 06/13/19 14:09 Labs: Abnormal lab results 06/12/19 06/12/19 06/13/19 Range/Units 16:24 19:44 12:33 [place] % (Auto) (0.0-7.3) % Seg Neutrophils % (40.0-70.0) % Sodium (137-145) mmol/L Potassium (3.6-5.0) mmol/L Chloride (98-107) mmol/L BUN (7-17) mg/dL Glucose (65-100) mg/dL POC Glucose 125 H 145 H 152 H (70-105) Alkaline Phosphatase (35-129) units/L Total Protein (6.3-8.2) g/dL Albumin (3.9-5) g/dL 06/13/19 06/13/19 Range/Units 14:09 14:09 [place] % (Auto) 8.7 H (0.0-7.3) % Seg Neutrophils % 71.3 H (40.0-70.0) % Sodium 132 L (137-145) mmol/L Potassium 5.8 H (3.6-5.0) mmol/L Chloride 93.2 L (98-107) mmol/L BUN 38 H (7-17) mg/dL Glucose 117 H (65-100) mg/dL POC Glucose (70-105) Alkaline Phosphatase 182 H (35-129) units/L Total Protein 8.7 H (6.3-8.2) g/dL Albumin 3.4 L (3.9-5) g/dL Assessment and Plan - Patient Problems (1) Acute on chronic respiratory failure with hypoxemia Current Visit: Yes Status: Acute Plan to address problem: continue supplemental oxygen. Pt pulse oximetry corrected 2 minutes after reading of 71%. CTA chest to evaluate for lung pathology as well as PE. CBC, CMP. continue supplemental oxygen at 2L NC. (2) Lethargic Current Visit: Yes Status: Acute Plan to address problem: Suspected secondary to Insomnia. Pt has no neurologic deficit. supportive care, sleep hygiene.
--- NOTE | 2019-06-13 16:15 | Cat Scan Report ---
CT CHEST WITHOUT CONTRAST INDICATION / CLINICAL INFORMATION: decline in status and low O2 sats. TECHNIQUE: Axial CT images were obtained through the chest without contrast. Sagittal and coronal reformatted im ages. All CT scans at this location are performed using CT dose reduction for ALARA by means of autom ated exposure control. COMPARISON: None available. FINDINGS: HEART: Mild cardiomegaly. No pericardial effusion. Extensive coronary artery calcifications are ident ified. Previous CABG changes are suspected. THORACIC AORTA: No significant abnormality. MEDIASTINUM and TRINITY: There is moderate debris in the esophagus. No esophageal mass or abnormal dilat ation. The thyroid gland and tracheobronchial tree are unremarkable. No mass or adenopathy is appreci ated. LUNGS: There is compressive atelectasis throughout the right lower lobe and posterior upper lobes. Th e aerated lungs are unremarkable. PLEURA: Large layering right pleural effusion is identified. Smaller possibly loculated left pleural effusion. No pneumothorax. SKELETAL SYSTEM: Intact. Mild thoracic spondylosis. Mild osteopenia is suspected. UPPER ABDOMEN: Trace ascites. Cholecystectomy. ADDITIONAL FINDINGS: None. IMPRESSION: CHF Signer Name: Pepe Ramirez Jr, MD Signed: 06/13/2019 4:10 PM Workstation Name: [id number]
[2019-06-13 18:50] LABS: Platelet Count 147 K/mm3 (140-440)
[2019-06-13] MEDS ORDERED: DUONEB *Not for PRN Use IH SCH (20:00)
[2019-06-13] MEDS: PROVENTIL IH SCH (21:56)
[2019-06-13] MEDS: LANTUS SUB-Q SCH (22:13)
[2019-06-14] MEDS: HumaLOG SUB-Q SCH ×4 (08:13→21:40)
[2019-06-14] MEDS: PROVENTIL IH PRN (09:44)
--- NOTE | 2019-06-14 09:57 | Progress Note ---
Subjective Date of service: 06/14/19 Principal diagnosis: Dementia with behavioral disturbance Subjective Comment: Pt met with provider, pt was very pleasant and happy. Pt states that she has no complaints and is doing well. Per nurse, Patient is alert and oriented to self. Pt is doing well, but has not been eating well. Pt is compliant with taking medications and pending d/c. MSE Orientation: place Affect: normal Mood: calm Thought Process: Disorganized, Disoriented Perceptions: none Speech: paucity Motor activity: lethargic Level of consciousness: confused Memory: Recent Impaired, Remote Impaired Interaction: cooperative Objective - Criteria for Continued Treatment Criteria for Continued Treatment: Improving Level of Functioning, Improving Treatment / Medication Compliance, Improving Emotional/Socia - Mental Status Mental Status: Oriented x 3 - Objective Observation Participation Level: Full Assessment and Plan - Patient Problems (1) Major neurocognitive disorder due to Alzheimer's disease, with behavioral disturbance Current Visit: Yes Status: Acute Plan to address problem: Patient will be admitted for inpatient psychiatric evaluation, medication adjustment and close monitoring The patient's behavior, mood, sleep and appetite will be closely monitored. Patient will be enrolled in individual and group therapeutic sessions and encouraged to attend. Patient will be provided with a safe and structured environment. Patient's physical health needs will be addressed by the Hospitalist. Social Assessment will be completed and the Personnel Coordinator will work with patient and family to ensure a suitable and safe disposition Medication adjustment will be made as clinically indicated Medications and Allergies Allergies Allergy/AdvReac Type Severity Reaction Status Date / Time codeine Allergy Mild Unknown Verified 05/15/19 22:13 enoxaparin [From Lovenox] Allergy Mild Unknown Verified 05/15/19 22:13 Home Medications Medication Instructions Recorded Confirmed Last Taken Type Insulin Glargine [Lantus VIAL] 18 unit SUB-Q BID 05/16/19 05/16/19 Unknown History ALBUTEROL NEB's [Proventil 0.083% 2.5 mg IH Q4HRT PRN #30 nebu 06/09/19 Unknown Rx NEBS] Calcium Carb/Vit D3/Minerals 1 each PO BID #60 tablet 06/09/19 Unknown Rx [Caltrate Plus] Famotidine [Pepcid] 20 mg PO QDAY #30 tablet 06/09/19 Unknown Rx Active Meds: Active Medications Albuterol (Proventil) 2.5 mg IH Q4HRT PRN PRN Reason: Shortness Of Breath Last Admin: 06/14/19 09:44 Dose: 2.5 mg Documented by: Albuterol (Proventil) 2.5 mg IH TIDRT COUNTS INCLUDE 234 BEDS AT THE [facility] Last Admin: 06/13/19 21:56 Dose: 2.5 mg Documented by: Dextrose (D50w (25gm) Syringe) 50 ml IV PRN PRN PRN Reason: Hypoglycemia Famotidine (Pepcid) 20 mg PO QDAY COUNTS INCLUDE 234 BEDS AT THE [facility] Last Admin: 06/13/19 10:10 Dose: 20 mg Documented by: Insulin Glargine (Lantus) 18 units SUB-Q QHS COUNTS [facility]CLUDE 234 BEDS AT [facility] Last Admin: 06/13/19 22:13 Dose: Not Given Documented by: Insulin Human Lispro (Humalog) 0 unit SUB-Q [facility] COUNTS INCLUDE 234 BEDS AT THE [facility]; Protocol Last Admin: 06/14/19 08:13 Dose: Not Given Documented by: Multivitamins/Minerals (Caltrate Plus) 1 each PO BID COUNTS INCLUDE 234 BEDS AT THE [facility] Last Admin: 06/13/19 22:11 Dose: 1 each Documented by: Results - Results Labs/Vitals: Laboratory Last Values WBC 8.0 K/mm3 (4.5-11.0) 06/13/19 14:09 RBC 3.74 M/mm3 (3.65-5.03) 06/13/19 14:09 Hgb 11.0 gm/dl (10.1-14.3) 06/13/19 14:09 Hct 34.4 % (30.3-42.9) 06/13/19 14:09 MCV 92 fl (79-97) 06/13/19 14:09 MCH 30 pg (28-32) 06/13/19 14:09 MCHC 32 % (30-34) 06/13/19 14:09 RDW 15.0 % (13.2-15.2) 06/13/19 14:09 Plt Count 147 K/mm3 (140-440) 06/13/19 14:09 Lymph % (Auto) 18.8 % (13.4-35.0) 06/13/19 14:09 [place] % (Auto) 8.7 % (0.0-7.3) H 06/13/19 14:09 Eos % (Auto) 0.7 % (0.0-4.3) 06/13/19 14:09 Baso % (Auto) 0.5 % (0.0-1.8) 06/13/19 14:09 Lymph # 1.5 K/mm3 (1.2-5.4) 06/13/19 14:09 [place] # 0.7 K/mm3 (0.0-0.8) 06/13/19 14:09 Eos # 0.1 K/mm3 (0.0-0.4) 06/13/19 14:09 Baso # 0.0 K/mm3 (0.0-0.1) 06/13/19 14:09 Seg Neutrophils % 71.3 % (40.0-70.0) H 06/13/19 14:09 Seg Neutrophils # 5.7 K/mm3 (1.8-7.7) 06/13/19 14:09 POC ABG pH 7.388 (7.35-7.45) 05/17/19 17:58 POC ABG pCO2 52.4 (35-45) H 05/17/19 17:58 POC ABG pO2 70 (80-105) L 05/17/19 17:58 POC ABG HCO3 31.6 (22-26 mml/L) 05/17/19 17:58 POC ABG Total CO2 33 (23-27mmol/L) 05/17/19 17:58 POC ABG O2 Sat 93 05/17/19 17:58 POC ABG Base Excess 7 ((-2) - (+3)mmol/L) 05/17/19 17:58 FiO2 28 % 05/17/19 17:58 Sodium 132 mmol/L (137-145) L 06/13/19 14:09 Potassium 5.8 mmol/L (3.6-5.0) H 06/13/19 14:09 Chloride 93.2 mmol/L (98-107) L 06/13/19 14:09 Carbon Dioxide 27 mmol/L (22-30) 06/13/19 14:09 Anion Gap 18 mmol/L 06/13/19 14:09 BUN 38 mg/dL (7-17) H 06/13/19 14:09 Creatinine 1.0 mg/dL (0.7-1.2) 06/13/19 14:09 Estimated GFR 53 ml/min 06/13/19 14:09 BUN/Creatinine Ratio 38 % 06/13/19 14:09 Glucose 117 mg/dL (65-100) H 06/13/19 14:09 POC Glucose 98 (70-105) 06/14/19 06:39 Hemoglobin A1c 8.5 % (4-6) H 05/16/19 07:10 Calcium 8.7 mg/dL (8.4-10.2) 06/13/19 14:09 Total Bilirubin 0.50 mg/dL (0.1-1.2) 06/13/19 14:09 AST 27 units/L (5-40) 06/13/19 14:09 ALT 16 units/L (7-56) 06/13/19 14:09 Alkaline Phosphatase 182 units/L (35-129) H 06/13/19 14:09 Total Protein 8.7 g/dL (6.3-8.2) H 06/13/19 14:09 Albumin 3.4 g/dL (3.9-5) L 06/13/19 14:09 Albumin/Globulin Ratio 0.6 % 06/13/19 14:09 Triglycerides 113 mg/dL (2-149) 05/16/19 07:10 Cholesterol 111 mg/dL (50-199) 05/16/19 07:10 LDL Cholesterol Direct 63 mg/dL (50-130) 05/16/19 07:10 HDL Cholesterol 26 mg/dL (40-59) L 05/16/19 07:10 Cholesterol/HDL Ratio 4.26 % 05/16/19 07:10 Urine Color Yellow (Yellow) 05/31/19 Unknown Urine Turbidity Cloudy (Clear) 05/31/19 Unknown Urine pH 5.0 (5.0-7.0) 05/31/19 Unknown Ur Specific [place] 1.012 (1.003-1.030) 05/31/19 Unknown Urine Protein <15 mg/dl mg/dL (Negative) 05/31/19 Unknown Urine Glucose (UA) Neg mg/dL (Negative) 05/31/19 Unknown Urine Ketones Neg mg/dL (Negative) 05/31/19 Unknown Urine Blood Sm (Negative) 05/31/19 Unknown Urine Nitrite Neg (Negative) 05/31/19 Unknown Urine Bilirubin Neg (Negative) 05/31/19 Unknown Urine Urobilinogen < 2.0 mg/dL (<2.0) 05/31/19 Unknown Ur Leukocyte Esterase Lg (Negative) 05/31/19 Unknown Urine WBC (Auto) > 182.0 /HPF (0.0-6.0) H 05/31/19 Unknown Urine RBC (Auto) 9.0 /HPF (0.0-6.0) 05/31/19 Unknown U Epithel Cells (Auto) 3.0 /HPF (0-13.0) 05/31/19 Unknown Urine Bacteria (Auto) 2+ /HPF (Negative) 05/31/19 Unknown Urine WBC Clumps 3+ /HPF 05/31/19 Unknown Last Vital Signs Temp 97.5 F L 06/13/19 19:44 Pulse 55 L 06/13/19 22:12 Resp 18 06/13/19 22:12 BP 140/61 06/13/19 19:44 Pulse Ox 99 06/13/19 22:11
[2019-06-14] MEDS: PEPCID PO SCH (10:36)
[2019-06-14] MEDS: CALTRATE PLUS PO SCH ×2 (10:37→21:40)
[2019-06-14] MEDS: PROVENTIL IH SCH ×3 (13:18→20:56)
[2019-06-14] MEDS: LANTUS SUB-Q SCH (21:13)
--- NOTE | 2019-06-15 08:29 | Progress Note ---
Subjective Date of service: 06/15/19 Principal diagnosis: Dementia with behavioral disturbance Subjective Comment: Pt eating breakfast, briefly met with the provider, pt was very pleasant and happy. Pt states that she has no concerns or complaints and is doing well. Per nurse, Patient is alert and oriented to self. Pt is doing well, pleasant and calm, pt appetite improving. Pt is compliant with taking medications, pending d/c. Pt denies SI/AVH/HI MSE Orientation: place Affect: normal Mood: calm Thought Process: Disorganized, Disoriented Perceptions: none Speech: paucity Motor activity: lethargic Level of consciousness: confused Memory: Recent Impaired, Remote Impaired Interaction: cooperative Objective - Criteria for Continued Treatment Criteria for Continued Treatment: Stablizing Level of Functioning - Objective Observation Participation Level: Minimal Assessment and Plan - Patient Problems (1) Major neurocognitive disorder due to Alzheimer's disease, with behavioral disturbance Current Visit: Yes Status: Acute Plan to address problem: Patient will be admitted for inpatient psychiatric evaluation, medication adjustment and close monitoring The patient's behavior, mood, sleep and appetite will be closely monitored. Patient will be enrolled in individual and group therapeutic sessions and encouraged to attend. Patient will be provided with a safe and structured environment. Patient's physical health needs will be addressed by the Hospitalist. Social Assessment will be completed and the Braille Teacher will work with patient and family to ensure a suitable and safe disposition Medication adjustment will be made as clinically indicated Medications and Allergies Allergies Allergy/AdvReac Type Severity Reaction Status Date / Time codeine Allergy Mild Unknown Verified 05/15/19 22:13 enoxaparin [From Lovenox] Allergy Mild Unknown Verified 05/15/19 22:13 Home Medications Medication Instructions Recorded Confirmed Last Taken Type Insulin Glargine [Lantus VIAL] 18 unit SUB-Q BID 05/16/19 05/16/19 Unknown History ALBUTEROL NEB's [Proventil 0.083% 2.5 mg IH Q4HRT PRN #30 nebu 06/09/19 Unknown Rx NEBS] Calcium Carb/Vit D3/Minerals 1 each PO BID #60 tablet 06/09/19 Unknown Rx [Caltrate Plus] Famotidine [Pepcid] 20 mg PO QDAY #30 tablet 06/09/19 Unknown Rx Active Meds: Active Medications Albuterol (Proventil) 2.5 mg IH Q4HRT PRN PRN Reason: Shortness Of Breath Last Admin: 06/14/19 09:44 Dose: 2.5 mg Documented by: Albuterol (Proventil) 2.5 mg IH TIDRT [facility] Last Admin: 06/14/19 20:56 Dose: 2.5 mg Documented by: Dextrose (D50w (25gm) Syringe) 50 ml IV PRN PRN PRN Reason: Hypoglycemia Famotidine (Pepcid) 20 mg PO QDAY [facility] Last Admin: 06/14/19 10:36 Dose: 20 mg Documented by: Insulin Glargine (Lantus) 18 units SUB-Q QHS [facility] Last Admin: 06/14/19 21:13 Dose: 18 units Documented by: Insulin Human Lispro (Humalog) 0 unit SUB-Q ACHS [facility]; Protocol Last Admin: 06/14/19 21:40 Dose: Not Given Documented by: Multivitamins/Minerals (Caltrate Plus) 1 each PO BID [facility] Last Admin: 06/14/19 21:40 Dose: 1 each Documented by: Results - Results Labs/Vitals: Laboratory Last Values WBC 8.0 K/mm3 (4.5-11.0) 06/13/19 14:09 RBC 3.74 M/mm3 (3.65-5.03) 06/13/19 14:09 Hgb 11.0 gm/dl (10.1-14.3) 06/13/19 14:09 Hct 34.4 % (30.3-42.9) 06/13/19 14:09 MCV 92 fl (79-97) 06/13/19 14:09 MCH 30 pg (28-32) 06/13/19 14:09 MCHC 32 % (30-34) 06/13/19 14:09 RDW 15.0 % (13.2-15.2) 06/13/19 14:09 Plt Count 147 K/mm3 (140-440) 06/13/19 14:09 Lymph % (Auto) 18.8 % (13.4-35.0) 06/13/19 14:09 [place] % (Auto) 8.7 % (0.0-7.3) H 06/13/19 14:09 Eos % (Auto) 0.7 % (0.0-4.3) 06/13/19 14:09 Baso % (Auto) 0.5 % (0.0-1.8) 06/13/19 14:09 Lymph # 1.5 K/mm3 (1.2-5.4) 06/13/19 14:09 [place] # 0.7 K/mm3 (0.0-0.8) 06/13/19 14:09 Eos # 0.1 K/mm3 (0.0-0.4) 06/13/19 14:09 Baso # 0.0 K/mm3 (0.0-0.1) 06/13/19 14:09 Seg Neutrophils % 71.3 % (40.0-70.0) H 06/13/19 14:09 Seg Neutrophils # 5.7 K/mm3 (1.8-7.7) 06/13/19 14:09 POC ABG pH 7.388 (7.35-7.45) 05/17/19 17:58 POC ABG pCO2 52.4 (35-45) H 05/17/19 17:58 POC ABG pO2 70 (80-105) L 05/17/19 17:58 POC ABG HCO3 31.6 (22-26 mml/L) 05/17/19 17:58 POC ABG Total CO2 33 (23-27mmol/L) 05/17/19 17:58 POC ABG O2 Sat 93 05/17/19 17:58 POC ABG Base Excess 7 ((-2) - (+3)mmol/L) 05/17/19 17:58 FiO2 28 % 05/17/19 17:58 Sodium 132 mmol/L (137-145) L 06/13/19 14:09 Potassium 5.8 mmol/L (3.6-5.0) H 06/13/19 14:09 Chloride 93.2 mmol/L (98-107) L 06/13/19 14:09 Carbon Dioxide 27 mmol/L (22-30) 06/13/19 14:09 Anion Gap 18 mmol/L 06/13/19 14:09 BUN 38 mg/dL (7-17) H 06/13/19 14:09 Creatinine 1.0 mg/dL (0.7-1.2) 06/13/19 14:09 Estimated GFR 53 ml/min 06/13/19 14:09 BUN/Creatinine Ratio 38 % 06/13/19 14:09 Glucose 117 mg/dL (65-100) H 06/13/19 14:09 POC Glucose 132 (70-105) H 06/15/19 06:37 Hemoglobin A1c 8.5 % (4-6) H 05/16/19 07:10 Calcium 8.7 mg/dL (8.4-10.2) 06/13/19 14:09 Total Bilirubin 0.50 mg/dL (0.1-1.2) 06/13/19 14:09 AST 27 units/L (5-40) 06/13/19 14:09 ALT 16 units/L (7-56) 06/13/19 14:09 Alkaline Phosphatase 182 units/L (35-129) H 06/13/19 14:09 Total Protein 8.7 g/dL (6.3-8.2) H 06/13/19 14:09 Albumin 3.4 g/dL (3.9-5) L 06/13/19 14:09 Albumin/Globulin Ratio 0.6 % 06/13/19 14:09 Triglycerides 113 mg/dL (2-149) 05/16/19 07:10 Cholesterol 111 mg/dL (50-199) 05/16/19 07:10 LDL Cholesterol Direct 63 mg/dL (50-130) 05/16/19 07:10 HDL Cholesterol 26 mg/dL (40-59) L 05/16/19 07:10 Cholesterol/HDL Ratio 4.26 % 05/16/19 07:10 Urine Color Yellow (Yellow) 05/31/19 Unknown Urine Turbidity Cloudy (Clear) 05/31/19 Unknown Urine pH 5.0 (5.0-7.0) 05/31/19 Unknown Ur Specific [place] 1.012 (1.003-1.030) 05/31/19 Unknown Urine Protein <15 mg/dl mg/dL (Negative) 05/31/19 Unknown Urine Glucose (UA) Neg mg/dL (Negative) 05/31/19 Unknown Urine Ketones Neg mg/dL (Negative) 05/31/19 Unknown Urine Blood Sm (Negative) 05/31/19 Unknown Urine Nitrite Neg (Negative) 05/31/19 Unknown Urine Bilirubin Neg (Negative) 05/31/19 Unknown Urine Urobilinogen < 2.0 mg/dL (<2.0) 05/31/19 Unknown Ur Leukocyte Esterase Lg (Negative) 05/31/19 Unknown Urine WBC (Auto) > 182.0 /HPF (0.0-6.0) H 05/31/19 Unknown Urine RBC (Auto) 9.0 /HPF (0.0-6.0) 05/31/19 Unknown U Epithel Cells (Auto) 3.0 /HPF (0-13.0) 05/31/19 Unknown Urine Bacteria (Auto) 2+ /HPF (Negative) 05/31/19 Unknown Urine WBC Clumps 3+ /HPF 05/31/19 Unknown Last Vital Signs Temp 98.0 F 06/14/19 21:00 Pulse 71 06/14/19 21:00 Resp 18 06/14/19 21:00 BP 151/66 06/14/19 21:00 Pulse Ox 96 06/14/19 21:00
[2019-06-15] MEDS: PROVENTIL IH SCH ×5 (08:35→21:37)
[2019-06-15] MEDS: CALTRATE PLUS PO SCH ×2 (11:18→22:11)
[2019-06-15] MEDS: PEPCID PO SCH (11:18)
[2019-06-15] MEDS: HumaLOG SUB-Q SCH ×4 (11:19→22:11)
[2019-06-15] MEDS: LANTUS SUB-Q SCH (21:14)
[2019-06-16] MEDS: HumaLOG SUB-Q SCH ×2 (08:07→12:35)
[2019-06-16] MEDS: PROVENTIL IH SCH ×2 (08:25→11:15)
[2019-06-16] MEDS: PEPCID PO SCH (09:14)
[2019-06-16] MEDS: CALTRATE PLUS PO SCH (09:14)
--- NOTE | 2019-06-16 09:28 | Progress Note ---
Subjective Date of service: 06/16/19 Principal diagnosis: Dementia with behavioral disturbance Subjective Comment: Pt eating breakfast, briefly met with the provider, pt was very pleasant and happy. Pt states that she has no concerns or complaints and is doing well. Per nurse, Patient is alert and oriented to self. Pt is doing well, pleasant and calm, pt appetite improving. Pt is compliant with taking medications, pending d/c. Pt denies SI/AVH/HI MSE Orientation: place Affect: normal Mood: calm Thought Process: Disorganized, Disoriented Perceptions: none Speech: paucity Motor activity: lethargic Level of consciousness: confused Memory: Recent Impaired, Remote Impaired Interaction: cooperative Assessment and Plan - Patient Problems (1) Major neurocognitive disorder due to Alzheimer's disease, with behavioral disturbance Current Visit: Yes Status: Acute Medications and Allergies Allergies Allergy/AdvReac Type Severity Reaction Status Date / Time codeine Allergy Mild Unknown Verified 05/15/19 22:13 enoxaparin [From Lovenox] Allergy Mild Unknown Verified 05/15/19 22:13 Home Medications Medication Instructions Recorded Confirmed Last Taken Type Insulin Glargine [Lantus VIAL] 18 unit SUB-Q BID 05/16/19 05/16/19 Unknown History ALBUTEROL NEB's [Proventil 0.083% 2.5 mg IH Q4HRT PRN #30 nebu 06/09/19 Unknown Rx NEBS] Calcium Carb/Vit D3/Minerals 1 each PO BID #60 tablet 06/09/19 Unknown Rx [Caltrate Plus] Famotidine [Pepcid] 20 mg PO QDAY #30 tablet 06/09/19 Unknown Rx Active Meds: Active Medications Albuterol (Proventil) 2.5 mg IH Q4HRT PRN PRN Reason: Shortness Of Breath Last Admin: 06/14/19 09:44 Dose: 2.5 mg Documented by: Albuterol (Proventil) 2.5 mg IH TIDRT SINDY Last Admin: 06/15/19 21:37 Dose: 2.5 mg Documented by: Dextrose (D50w (25gm) Syringe) 50 ml IV PRN PRN PRN Reason: Hypoglycemia Famotidine (Pepcid) 20 mg PO QDAY SINDY Last Admin: 06/15/19 11:18 Dose: 20 mg Documented by: Insulin Glargine (Lantus) 18 units SUB-Q QHS SINDY Last Admin: 06/15/19 21:14 Dose: 18 units Documented by: Insulin Human Lispro (Humalog) 0 unit SUB-Q [facility]; Protocol Last Admin: 06/16/19 08:07 Dose: Not Given Documented by: Multivitamins/Minerals (Caltrate Plus) 1 each PO BID SINDY Last Admin: 06/15/19 22:11 Dose: 1 each Documented by: Results - Results Labs/Vitals: Laboratory Last Values WBC 8.0 K/mm3 (4.5-11.0) 06/13/19 14:09 RBC 3.74 M/mm3 (3.65-5.03) 06/13/19 14:09 Hgb 11.0 gm/dl (10.1-14.3) 06/13/19 14:09 Hct 34.4 % (30.3-42.9) 06/13/19 14:09 MCV 92 fl (79-97) 06/13/19 14:09 MCH 30 pg (28-32) 06/13/19 14:09 MCHC 32 % (30-34) 06/13/19 14:09 RDW 15.0 % (13.2-15.2) 06/13/19 14:09 Plt Count 147 K/mm3 (140-440) 06/13/19 14:09 Lymph % (Auto) 18.8 % (13.4-35.0) 06/13/19 14:09 [place] % (Auto) 8.7 % (0.0-7.3) H 06/13/19 14:09 Eos % (Auto) 0.7 % (0.0-4.3) 06/13/19 14:09 Baso % (Auto) 0.5 % (0.0-1.8) 06/13/19 14:09 Lymph # 1.5 K/mm3 (1.2-5.4) 06/13/19 14:09 [place] # 0.7 K/mm3 (0.0-0.8) 06/13/19 14:09 Eos # 0.1 K/mm3 (0.0-0.4) 06/13/19 14:09 Baso # 0.0 K/mm3 (0.0-0.1) 06/13/19 14:09 Seg Neutrophils % 71.3 % (40.0-70.0) H 06/13/19 14:09 Seg Neutrophils # 5.7 K/mm3 (1.8-7.7) 06/13/19 14:09 POC ABG pH 7.388 (7.35-7.45) 05/17/19 17:58 POC ABG pCO2 52.4 (35-45) H 05/17/19 17:58 POC ABG pO2 70 (80-105) L 05/17/19 17:58 POC ABG HCO3 31.6 (22-26 mml/L) 05/17/19 17:58 POC ABG Total CO2 33 (23-27mmol/L) 05/17/19 17:58 POC ABG O2 Sat 93 05/17/19 17:58 POC ABG Base Excess 7 ((-2) - (+3)mmol/L) 05/17/19 17:58 FiO2 28 % 05/17/19 17:58 Sodium 132 mmol/L (137-145) L 06/13/19 14:09 Potassium 5.8 mmol/L (3.6-5.0) H 06/13/19 14:09 Chloride 93.2 mmol/L (98-107) L 06/13/19 14:09 Carbon Dioxide 27 mmol/L (22-30) 06/13/19 14:09 Anion Gap 18 mmol/L 06/13/19 14:09 BUN 38 mg/dL (7-17) H 06/13/19 14:09 Creatinine 1.0 mg/dL (0.7-1.2) 06/13/19 14:09 Estimated GFR 53 ml/min 06/13/19 14:09 BUN/Creatinine Ratio 38 % 06/13/19 14:09 Glucose 117 mg/dL (65-100) H 06/13/19 14:09 POC Glucose 110 (70-105) H 06/16/19 07:32 Hemoglobin A1c 8.5 % (4-6) H 05/16/19 07:10 Calcium 8.7 mg/dL (8.4-10.2) 06/13/19 14:09 Total Bilirubin 0.50 mg/dL (0.1-1.2) 06/13/19 14:09 AST 27 units/L (5-40) 06/13/19 14:09 ALT 16 units/L (7-56) 06/13/19 14:09 Alkaline Phosphatase 182 units/L (35-129) H 06/13/19 14:09 Total Protein 8.7 g/dL (6.3-8.2) H 06/13/19 14:09 Albumin 3.4 g/dL (3.9-5) L 06/13/19 14:09 Albumin/Globulin Ratio 0.6 % 06/13/19 14:09 Triglycerides 113 mg/dL (2-149) 05/16/19 07:10 Cholesterol 111 mg/dL (50-199) 05/16/19 07:10 LDL Cholesterol Direct 63 mg/dL (50-130) 05/16/19 07:10 HDL Cholesterol 26 mg/dL (40-59) L 05/16/19 07:10 Cholesterol/HDL Ratio 4.26 % 05/16/19 07:10 Urine Color Yellow (Yellow) 05/31/19 Unknown Urine Turbidity Cloudy (Clear) 05/31/19 Unknown Urine pH 5.0 (5.0-7.0) 05/31/19 Unknown Ur Specific [place] 1.012 (1.003-1.030) 05/31/19 Unknown Urine Protein <15 mg/dl mg/dL (Negative) 05/31/19 Unknown Urine Glucose (UA) Neg mg/dL (Negative) 05/31/19 Unknown Urine Ketones Neg mg/dL (Negative) 05/31/19 Unknown Urine Blood Sm (Negative) 05/31/19 Unknown Urine Nitrite Neg (Negative) 05/31/19 Unknown Urine Bilirubin Neg (Negative) 05/31/19 Unknown Urine Urobilinogen < 2.0 mg/dL (<2.0) 05/31/19 Unknown Ur Leukocyte Esterase Lg (Negative) 05/31/19 Unknown Urine WBC (Auto) > 182.0 /HPF (0.0-6.0) H 05/31/19 Unknown Urine RBC (Auto) 9.0 /HPF (0.0-6.0) 05/31/19 Unknown U Epithel Cells (Auto) 3.0 /HPF (0-13.0) 05/31/19 Unknown Urine Bacteria (Auto) 2+ /HPF (Negative) 05/31/19 Unknown Urine WBC Clumps 3+ /HPF 05/31/19 Unknown Last Vital Signs Temp 97.8 F 06/16/19 01:21 Pulse 76 06/16/19 01:21 Resp 20 06/16/19 01:21 BP 112/43 06/16/19 01:21 Pulse Ox 97 06/16/19 01:21
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
[2019-06-16 11:37] VITALS: BP 103/49
[2019-06-17] MEDS ORDERED: NACL 0.45% 1000 ML 1,000 ML IV ONE (07:49)
== END 2019-06-16 12:37 | DRG 56 ==
LOC: 5A 09:42
PROVIDERS: ADMIT Psychiatry & Neurology Psychiatry; ATTEND Psychiatry & Neurology Psychiatry
PROC: 4A033R1 Measurement of Arterial Saturation, Peripheral, Percutaneous Approach (ICD-10-PCS; principal; 2019-05-17)
DX: G30.8 Other Alzheimer's disease (principal); J96.21 Acute and chronic respiratory failure with hypoxia; F02.81 Dementia in other diseases classified elsewhere, unspecified severity, with behavioral disturbance; E44.0 Moderate protein-calorie malnutrition; N30.00 Acute cystitis without hematuria; E83.51 Hypocalcemia; D63.8 Anemia in other chronic diseases classified elsewhere; E11.9 Type 2 diabetes mellitus without complications; Z82.49 Family history of ischemic heart disease and other diseases of the circulatory system; Z88.5 Allergy status to narcotic agent; Z88.8 Allergy status to other drugs, medicaments and biological substances; Z99.81 Dependence on supplemental oxygen; Z68.21 Body mass index [BMI] 21.0-21.9, adult; Z88.1 Allergy status to other antibiotic agents; Z79.51 Long term (current) use of inhaled steroids; Z79.4 Long term (current) use of insulin
CPT/HCPCS: 36415; 36600; 71045; 71250; 80053; 80061; 81001; 82803; 82962; 83036; 85025; 87076; 87086; 87186; 93005; 93010; 94640; 94760; G0378; J1650; J1815; J7030